=== PATIENT | female | born 1955 | race Caucasian/White ===

== ENCOUNTER 2021-06-25 14:41 | Inpatient (IN) | payer MEDICARE ==
[2021-06-25 14:48] LABS: Glucose,Whole Blood 222 mg/dL (75-99)
[2021-06-25] MEDS ORDERED: MIDAZOLAM 1 MG/ML 5 ML VIAL IV STA (14:48)
[2021-06-25] MEDS ORDERED: SODIUM CHLORIDE 0.9% 1,000 ML IV STA (14:51)
[2021-06-25] MEDS ORDERED: AMIODARONE 360 MG in DEXTROSE 5% IN WATER 200 ML IV ONE ×2 (15:00)
[2021-06-25] MEDS ORDERED: DEXTROSE 5% IN WATER 100 ML with AMIODARONE 150 MG IV ONE (15:00)
--- NOTE | 2021-06-25 15:06 | ED ---
General Adult HPI - General Chief complaint: Cardiac Arrest/CPR Stated complaint: Post Cardiac Arrest Time Seen by Provider: 06/25/21 14:41 Source: patient, EMS, RN notes reviewed, old records reviewed Mode of arrival: EMS Limitations: altered mental status, physical limitation - History of Present Illness Initial comments: This is a 66-year-old female EMS brought her in after she was in cardiac arrest. Patient only history that they had was that she was a diabetic. According to family patient went down to sitting in a chair he admittedly started CPR on her when EMS arrived they stated she was in V. fib and shocked her once she went into PEA another 15 minutes of CPR was done and results protocol was followed they put a Claus tube in and pulses were returned patient was down for approximately 25-30 minutes prior to pulses returning. No other history is available at this time family is not yet here. - Related Data Home Medications Medication Instructions Recorded Confirmed Collagenase [Santyl] 1 applic TOPICAL DAILY PRN 06/25/21 06/25/21 Diazepam [Valium] 5 mg PO HS PRN 06/25/21 06/25/21 metFORMIN HCL 1,000 mg PO BID 06/25/21 06/25/21 Allergies Allergy/AdvReac Type Severity Reaction Status Date / Time No Known Allergies Allergy Verified 06/25/21 15:32 Review of Systems ROS Statement: Those systems with pertinent positive or pertinent negative responses have been documented in the HPI. ROS Other: All systems not noted in ROS Statement are negative. Past Medical History History of Any Multi-Drug Resistant Organisms: MRSA Date of last positivie culture/infection: 04/20/20 MDRO Source:: MRSA FOOT General Exam - General Exam Comments Initial Comments: GENERAL: Patient is well-developed and well-nourished. Patient is unresponsive. Patient is taking some visual agonal breaths ENT: Neck is soft and supple. No significant lymphadenopathy is noted. Oropharynx is clear. Moist mucous membranes. EYES: Pupils are fixed and dilated PULMONARY: Occasional agonal breaths. Breath sounds could be heard when we were bagging her with the Claus tube in place. CARDIOVASCULAR: There is a regular rate and rhythm without any murmurs gallops or rubs. Patient has good femoral pulse in ABDOMEN: Soft and nontender with normal bowel sounds. SKIN: Skin is clear with no lesions or rashes and otherwise unremarkable. NEUROLOGIC: Patient is unresponsive. MUSCULOSKELETAL: Normal extremities with adequate strength and full range of motion. LYMPHATICS: No significant lymphadenopathy is noted PSYCHIATRIC: Unable to do at this time. Limitations: altered mental status, physical limitation Course Vital Signs 06/25/21 06/25/21 06/25/21 14:51 15:10 15:25 Temperature 97.5 F L Pulse Rate 96 97 85 Respiratory 15 17 16 Rate Blood Pressure 76/50 92/81 77/41 O2 Sat by Pulse 94 L 92 L 99 Oximetry 06/25/21 15:51 Temperature Pulse Rate 86 Respiratory 17 Rate Blood Pressure 98/53 O2 Sat by Pulse 98 Oximetry Procedures - Intubation Sedative: Versed Paralytic: Succinylcholine Laryngoscope: Yu Size: 3 ET Tube Size: 7.5 ET Tube Uncuffed: No Tube Secured Location: teeth Tube Placement Confirmation: visualized tube passing through cords, equal breath sounds bilaterally, no breath sounds over epigastrium, confirmation by capnometry Patient Tolerated Procedure: well Intubation Complications: none Medical Decision Making - Medical Decision Making Since we had return of spontaneous circulation I spoke with cardiology Dr. Cnonell approximately 10 minutes after the patient arrived. EKG showed normal sinus rhythm at 95 bpm MI interval 160 QRS is 94 QT interval 392 QTC is 492. It is a 4 quality EKG but I see no obvious signs of ST segment elevation at this time. Second EKG was done shows normal sinus rhythm at 85 bpm MI interval 174 QRS on 102 QT interval 420 QTC is 499. Patient's EKG shows no ST segment elevation or depression. Dr. Connlel came down and saw the patient and spoke with the family and they were in agreement with going to the catheterization lab. CT of the brain shows no acute abnormality. CT of the chest shows no PE but does show pulmonary edema versus pneumonia bilaterally much more significant on the right than the left. Patient went to the catheterization lab. I spoke with Dr. Acuna he agreed to admit the patient admitted the patient wrote orders. I started the patient on Rocephin in case this was a pneumonia as opposed to pulmonary edema. - Lab Data Result diagrams: 06/25/21 14:58 06/25/21 14:58 Lab Results 06/25/21 06/25/21 06/25/21 Range/Units 14:46 14:58 14:58 WBC 23.4 H (3.8-10.6) k/uL RBC 4.63 (3.80-5.40) m/uL Hgb 13.7 (11.4-16.0) gm/dL Hct 42.8 (34.0-46.0) % MCV 92.3 (80.0-100.0) fL MCH 29.5 (25.0-35.0) pg MCHC 32.0 (31.0-37.0) g/dL RDW 14.5 (11.5-15.5) % Plt Count 334 (150-450) k/uL MPV 8.5 Neutrophils % 80 % Lymphocytes % 15 % Monocytes % 2 % Eosinophils % 1 % Basophils % 0 % Neutrophils # 18.7 H (1.3-7.7) k/uL Lymphocytes # 3.6 (1.0-4.8) k/uL Monocytes # 0.6 (0-1.0) k/uL Eosinophils # 0.3 (0-0.7) k/uL Basophils # 0.1 (0-0.2) k/uL Hypochromasia Slight PT 10.4 (9.0-12.0) sec INR 1.0 (<1.2) APTT 22.5 (22.0-30.0) sec D-Dimer >34.10 H (<0.60) mg/L FEU Sodium (137-145) mmol/L Potassium (3.5-5.1) mmol/L Chloride (98-107) mmol/L Carbon Dioxide (22-30) mmol/L Anion Gap mmol/L BUN (7-17) mg/dL Creatinine (0.52-1.04) mg/dL Est GFR (CKD-EPI)AfAm (>60 ml/min/1.73 sqM) Est GFR (CKD-EPI)NonAf (>60 ml/min/1.73 sqM) Glucose (74-99) mg/dL POC Glucose (mg/dL) 222 H (75-99) mg/dL POC Glu Limo Driver ID Discher, Kristen Calcium (8.4-10.2) mg/dL Magnesium (1.6-2.3) mg/dL Total Bilirubin (0.2-1.3) mg/dL AST (14-36) U/L ALT (4-34) U/L Alkaline Phosphatase (38-126) U/L Troponin I (0.000-0.034) ng/mL NT-Pro-B Natriuret Pep pg/mL Total Protein (6.3-8.2) g/dL Albumin (3.5-5.0) g/dL 06/25/21 06/25/21 06/25/21 Range/Units 14:58 14:58 15:49 WBC (3.8-10.6) k/uL RBC (3.80-5.40) m/uL Hgb (11.4-16.0) gm/dL Hct (34.0-46.0) % MCV (80.0-100.0) fL MCH (25.0-35.0) pg MCHC (31.0-37.0) g/dL RDW (11.5-15.5) % Plt Count (150-450) k/uL MPV Neutrophils % % Lymphocytes % % Monocytes % % Eosinophils % % Basophils % % Neutrophils # (1.3-7.7) k/uL Lymphocytes # (1.0-4.8) k/uL Monocytes # (0-1.0) k/uL Eosinophils # (0-0.7) k/uL Basophils # (0-0.2) k/uL Hypochromasia PT (9.0-12.0) sec INR (<1.2) APTT (22.0-30.0) sec D-Dimer (<0.60) mg/L FEU Sodium 137 (137-145) mmol/L Potassium 4.4 (3.5-5.1) mmol/L Chloride 103 (98-107) mmol/L Carbon Dioxide 25 (22-30) mmol/L Anion Gap 9 mmol/L BUN 20 H (7-17) mg/dL Creatinine 0.99 (0.52-1.04) mg/dL Est GFR (CKD-EPI)AfAm 69 (>60 ml/min/1.73 sqM) Est GFR (CKD-EPI)NonAf 60 (>60 ml/min/1.73 sqM) Glucose 227 H (74-99) mg/dL POC Glucose (mg/dL) (75-99) mg/dL POC Glu Limo Driver ID Calcium 9.2 (8.4-10.2) mg/dL Magnesium 1.7 (1.6-2.3) mg/dL Total Bilirubin 0.2 (0.2-1.3) mg/dL AST 125 H (14-36) U/L ALT 53 H (4-34) U/L Alkaline Phosphatase 117 (38-126) U/L Troponin I 0.081 H* (0.000-0.034) ng/mL NT-Pro-B Natriuret Pep 339 pg/mL Total Protein 6.7 (6.3-8.2) g/dL Albumin 3.8 (3.5-5.0) g/dL Critical Care Time Critical Care Time: Yes Total Critical Care Time: 35 Disposition Clinical Impression: Cardiac arrest Disposition: ADMITTED IP TO THIS HOSP Referrals: None,Stated [Primary Care Provider] - 1-2 days Time of Disposition: 16:15
[2021-06-25 15:08] LABS: Basophils # (A) 0.1 k/uL (0-0.2); Basophils % (A) 0 %; Eosinophils # (A) 0.3 k/uL (0-0.7); Eosinophils % (A) 1 %; HCT 42.8 % (34.0-46.0); HGB 13.7 gm/dL (11.4-16.0); Hypochromasia Slight; Lymphocytes # (A) 3.6 k/uL (1.0-4.8); Lymphocytes % (A) 15 %; MCH 29.5 pg (25.0-35.0); MCV 92.3 fL (80.0-100.0); Mean Platelet Volume 8.5; Monocytes # (A) 0.6 k/uL (0-1.0); Monocytes % (A) 2 %; Neutrophils # (A) 18.7 k/uL (1.3-7.7); Neutrophils % (A) 80 %; Platelet Count 334 k/uL (150-450); RBC 4.63 m/uL (3.80-5.40); RDW 14.5 % (11.5-15.5); WBC 23.4 k/uL (3.8-10.6)
[2021-06-25] MEDS ORDERED: SUCCINYLCHOLINE CHLORIDE VIAL 200 MG/10 ML VIAL IV STA (15:13)
[2021-06-25 15:18] LABS: Albumin 3.8 g/dL (3.5-5.0); Calcium 9.2 mg/dL (8.4-10.2); Magnesium 1.7 mg/dL (1.6-2.3); Potassium 4.4 mmol/L (3.5-5.1); Total Bilirubin 0.2 mg/dL (0.2-1.3); Total Protein 6.7 g/dL (6.3-8.2)
--- NOTE | 2021-06-25 15:31 | XR ---
EXAMINATION TYPE: XR chest 1V portable DATE OF EXAM: 06/25/2021 COMPARISON: None INDICATION: Chest pain TECHNIQUE: Chest is examined utilizing mobile apparatus supine view. FINDINGS: The heart size is normal. The pulmonary vasculature is slightly prominent. There is diffuse increased lung markings in the right lung. Some mild increased lung markings may be at the left upper lung field.. No pneumothorax is evident. No displaced rib fractures are identified . Endotracheal tube tip is above susanne. Nasogastric tube transverses the thorax with tip in the left u pper quadrant of the abdomen. Radiopaque round densities in the left medial apex IMPRESSION: 1. Diffuse increased lung markings in the right lung. Correlate for atypical pulmonary edema and pneu monia. 2. Lines and catheters discussed above
[2021-06-25] MEDS ORDERED: ATORVASTATIN 80 MG TAB PO STA (15:37)
[2021-06-25] MEDS ORDERED: SODIUM CHLORIDE 0.9% 1,000 ML in EMPTY BAG 1 BAG IV ONE (15:37)
[2021-06-25] MEDS ORDERED: ASPIRIN 325 MG TAB PO STA (15:37)
[2021-06-25] MEDS ORDERED: NITROGLYCERIN SL TABS 0.4 MG TAB SUBLINGUAL PRN (15:37)
[2021-06-25] MEDS ORDERED: ALPRAZolam 0.5 MG TAB PO PRN (15:37)
[2021-06-25] MEDS ORDERED: ALPRAZolam 0.25 MG TAB PO PRN (15:37)
[2021-06-25 15:40] LABS: Partial Thromboplastin Time 22.5 sec (22.0-30.0); Prothrombin Time 10.4 sec (9.0-12.0)
[2021-06-25] MEDS ORDERED: HEPARIN SODIUM 1,000 UN/ML (10ML VL) ONE (15:53)
[2021-06-25] MEDS ORDERED: VERAPAMIL 2.5 MG/ML 2 ML AMP ONE (15:53)
[2021-06-25] MEDS ORDERED: LIDOCAINE 1% INJ 10MG/ML (20 ML MDV) ONE (15:53)
[2021-06-25] MEDS ORDERED: fentaNYL (PF) 50 MCG/ML 2 ML AMP ONE (15:54)
--- NOTE | 2021-06-25 15:56 | CT ---
EXAMINATION TYPE: CT brain wo con DATE OF EXAM: 06/25/2021 HISTORY: Patient unresponsive and intubated at time of scan. Confusion. CT DLP: 2073.6 mGycm. Automated Exposure Control for Dose Reduction was Utilized. TECHNIQUE: CT scan of the head is performed without contrast. COMPARISON: None. FINDINGS: There is no acute intracranial hemorrhage or midline shift identified. There is mild to m oderate diffuse ventricular and sulcal prominence consistent with diffuse age-related cerebral atroph y. There is mild low-attenuation in the periventricular white matter consistent with chronic small v essel ischemic change. Mild mucosal thickening posteriorly left maxillary sinus otherwise paranasal s inuses are clear. Left-sided nasogastric tube partially imaged. Endotracheal tube partially imaged. Globes are intact bilaterally. IMPRESSION: No acute intracranial hemorrhage or midline shift. There is mild to moderate diffuse ag e-related cerebral atrophy and mild chronic small vessel ischemic change noted.
--- NOTE | 2021-06-25 16:02 | CT ---
EXAMINATION TYPE: CT chest angio for PE DATE OF EXAM: 06/25/2021 COMPARISON: Chest x-ray earlier today HISTORY: Patient unresponsive and intubated at time of scan. CT DLP: 2073.6 mGycm. Automated Exposure Control for Dose Reduction was Utilized. CONTRAST: CTA scan of the thorax is performed with IV Contrast, patient injected with 100 mL of Isovue 370, pul monary embolism protocol. MIP Images are created on CT scanner and reviewed. FINDINGS: LUNGS: There is dense consolidation posterior aspect right lower lobe. Additional multifocal areas of groundglass opacity are present bilaterally. Less prominent dependent atelectasis or less likely acu te consolidation in the left lower lobe is noted. No significant pleural effusion or pneumothorax see n bilaterally. Endotracheal tube terminates above the susanne the aortic knob level. MEDIASTINUM: There is satisfactory enhancement of the pulmonary artery and its branches, there is no CT evidence for pulmonary embolism. Satisfactory enhancement of the thoracic aorta without aneurysm o r dissection. There are no greater than 1 cm hilar or mediastinal lymph nodes. Heart size upper limit s of normal. Lipomatous hypertrophy of the intra-arterial septum. Pericardial effusion is seen. Nasog astric tube projects below diaphragm into stomach. Coronary artery calcifications are present. OTHER: Mildly distended stomach partially imaged. IMPRESSION: 1. No CT evidence for acute pulmonary embolism. 2. Bilateral multifocal areas of groundglass opacity could reflect edema and/or infiltrates greatest in the upper versus lower lungs and greatest in the right lung. Correlate clinically to exclude covid -19 infection in current environment. More prominent dependent consolidation in the right lower lobe and posterior aspect right upper lobe could reflect additional multilobar pneumonia, aspiration pneum onia is in differential.
--- NOTE | 2021-06-25 16:26 | CONS ---
CONSULTATION Mrs. Arreguin is a 66-year-old female with a history of diabetes and chronic tobacco use who presented to the emergency room with a cardiac arrest. Apparently she was at home, according to her , sitting having lunch when she became unresponsive. He started CPR. Subsequently EMS arrived. She received cardioversion for ventricular fibrillation. On arrival in the emergency room she was intubated. She is intubated in sinus mechanism at this time. According to the family, the patient has no prior history of cardiac disease. She has dyspnea on exertion, but she is not active. She has a history of chronic tobacco use and diabetes. She has no prior history of angina pectoris or congestive heart failure. She has dyspnea on exertion. She has no history of documented arrhythmia. No other history is available. She has had diabetes for a long time. She is a smoker. No history of hypertension, according to the family. REVIEW OF SYSTEMS: Review of systems could not be obtained. PHYSICAL EXAMINATION: This is a 66-year-old female, intubated. The blood pressure is running in the 90s with a heart rate in the 90s. HEAD: Normocephalic. Eyes: Sclerae anicteric. Pupils with slow reaction to light NECK: No bruit. LUNGS: Decreased air exchange anteriorly. HEART: Regular rate and rhythm. S1, S2. No S3. No rub or gallop appreciated. ABDOMEN: Soft. Positive bowel sounds. No organomegaly. EXTREMITIES: No edema. Plus one distal pulses. LAB DATA: BUN and creatinine of 20 and 0.99, potassium 4.4, ALT of 53, AST of 125, blood sugar of 222. Hemoglobin 13.7, white blood cells 23.4. EKG revealed a sinus mechanism, right axis deviation, poor R-wave progression. No acute ST-segment changes. Chest x-ray shows increased marking in the right lung that could reflect either infiltrate or fluid overload. IMPRESSION: 1. Cardiac arrest with ventricular fibrillation per EMS. No acute ST-segment changes on the EKG. Rule out acute ischemic event in view of the history of diabetes and chronic tobacco use. 2. History of diabetes. 3. Chronic tobacco use. RECOMMENDATIONS: I have discussed her case with her family and have recommend proceeding with coronary angiography to assess her status and guide her treatment. The rationale behind the procedure as well as its risks and complications were discussed with the patient, who is in full understanding and agreement. Possibility of anoxic encephalopathy was discussed with them. They are in full understanding and agreement. Depending on the results of testing, further recommendations will be made. Thank you for this consult. Will follow with you. JAN / SHARIFN: [id number] / JER
[2021-06-25] MEDS ORDERED: MIDAZOLAM 2 MG/2 ML VIAL IV ONE (16:42)
[2021-06-25] MEDS ORDERED: SODIUM CHLORIDE 0.9% 1,000 ML IV ONE (16:42)
[2021-06-25] MEDS ORDERED: IV FLUID CONTINUATION 100 ML IV ONE (16:42)
[2021-06-25] MEDS ORDERED: LIDOCAINE 1% INJ 10MG/ML (20 ML MDV) SQ ONE (16:53)
[2021-06-25] MEDS ORDERED: VERAPAMIL SYRINGE (5 MG/10 ML) INTRAARTER ONE (16:55)
[2021-06-25] MEDS ORDERED: HEPARIN SODIUM 1,000 UN/ML (10ML VL) IV ONE (16:58)
[2021-06-25] MEDS ORDERED: IOPAMIDOL-370 125ML BTL INJ ONE (17:06)
[2021-06-25] MEDS ORDERED: SODIUM CHLORIDE 0.9% 500 ML 500 ML IV ONE (17:07)
[2021-06-25 17:10] LABS: ABG Base Excess -1.3 mmol/L; ABG HCO3 26 mmol/L (21-25); ABG Oxygen Saturation 99.3 % (94-97); ABG PCO2 63 mmHg (35-45); ABG PH 7.23 (7.35-7.45); ABG PO2 188 mmHg (83-108); ABG TCO2 28 mmol/L (19-24)
[2021-06-25] MEDS ORDERED: RX INFO: IV CONTRAST WAS GIVEN 1 EACH MISC MISCELLANE PRN (17:17)
[2021-06-25] MEDS ORDERED: HEPARIN SODIUM 1,000 UN/ML (10ML VL) IV PRN (17:19)
[2021-06-25] MEDS ORDERED: propofoL 100 ML IV ONE (17:42)
[2021-06-25 17:54] LABS: Glucose,Whole Blood 243 mg/dL (75-99)
[2021-06-25 18:14] LABS: Basophils # (A) 0.1 k/uL (0-0.2); Basophils % (A) 0 %; Eosinophils # (A) 0.1 k/uL (0-0.7); Eosinophils % (A) 0 %; HCT 41.7 % (34.0-46.0); HGB 12.9 gm/dL (11.4-16.0); Hypochromasia Slight; Lymphocytes # (A) 1.9 k/uL (1.0-4.8); Lymphocytes % (A) 8 %; MCH 28.9 pg (25.0-35.0); MCHC 30.9 g/dL (31.0-37.0); MCV 93.4 fL (80.0-100.0); Mean Platelet Volume 8.3; Monocytes # (A) 1.3 k/uL (0-1.0); Monocytes % (A) 6 %; Neutrophils # (A) 18.7 k/uL (1.3-7.7); Neutrophils % (A) 85 %; Platelet Count 304 k/uL (150-450); RBC 4.46 m/uL (3.80-5.40); RDW 14.8 % (11.5-15.5); WBC 22.2 k/uL (3.8-10.6)
[2021-06-25] MEDS: NOREPINEPHRINE 4 MG in SODIUM CHLORIDE 0.9% 250 ML IV SCH (18:20)
[2021-06-25 18:25] LABS: Partial Thromboplastin Time 35.8 sec (22.0-30.0); Prothrombin Time 11.1 sec (9.0-12.0)
[2021-06-25] MEDS ORDERED: NOREPINEPHRIN 4 MG-0.9% NS PMX 4 MG/250 ML ML IV ONE (18:32)
[2021-06-25] MEDS ORDERED: HEPARIN SOD,PORK IN 0.45% NACL 25,000 UNIT in 0.45% NACL 1 250ML.BAG IV SCH (19:30)
[2021-06-25] MEDS: SODIUM CHLORIDE 0.9% 1,000 ML IV SCH (19:34)
--- NOTE | 2021-06-25 19:46 | P.PCN ---
Date of Procedure: 06/25/21 Operative Findings: Date of Procedure: 06/25/21 Preoperative Diagnosis: Acute cardiac arrest Postoperative Diagnosis: Acute cardiac arrest Procedure(s) Performed: Insertion of a triple-lumen catheter and an arterial line Anesthesia: local Surgeon: Keegan Mills Estimated Blood Loss (ml): 0 Condition: critical Disposition: ICU Operative Findings: Arterial Line Indication: Hemodynamic monitoring. A time-out was completed verifying correct patient, procedure, site, positioning, and implant(s) or special equipment if applicable. Allens test was performed to ensure adequate perfusion. The patient s left wrist was prepped and draped in sterile fashion. 1% Lidocaine was used to anesthetize the area. An 18G Arrow arterial line was introduced into the left radial artery. The catheter was threaded over the guide wire and the needle was removed with appropriate pulsatile blood return. Blood loss was minimal. The catheter was then sutured in place to the skin and a sterile dressing applied. Perfusion to the extremity distal to the point of catheter insertion was checked and found to be adequate. The patient tolerated the procedure well and there were no complications. Central Line Indication: Hemodynamic monitoring/Intravenous access. A time-out was completed verifying correct patient, procedure, site, positioning, and implant(s) or special equipment if applicable. The patient was placed in a dependent position appropriate for central line placement based on the vein to be cannulated. The patient s left neck was prepped and draped in sterile fashion. 1% Lidocaine was used to anesthetize the surrounding skin area. A triple lumen 9F Cordis catheter was introduced into the Left IJ vein using Seldinger technique. The catheter was threaded smoothly over the guide wire and appropriate blood return was obtained. Each lumen of the catheter was evacuated of air and flushed with sterile saline. The catheter was then sutured in place to the skin and a sterile dressing applied. Perfusion to the extremity distal to the point of catheter insertion was checked and found to be adequate. The patient tolerated the procedure well and there were no complications.
--- NOTE | 2021-06-25 19:59 | CC ---
CARDIAC CATHETERIZATION REPORT DATE OF SERVICE: 06/25/2021 Mrs. Arreguin is a 66-year-old female with a history of diabetes and chronic tobacco use who presented with a sudden cardiac arrest and ventricular fibrillation requiring cardioversion. She was intubated. Her EKG shows no acute changes. I discussed her case with her family and recommendation was made regarding cardiac catheterization to rule out any evidence to suggest acute ischemic event to explain her presentation. The procedure as well as its risks and the complications were discussed with the family, and they were in full understanding and agreement. PROCEDURE DESCRIPTION: Patient was brought to the pathology laboratory director. She was intubated and sedated. Using Xylocaine anesthesia and Seldinger technique, a 6-Jordanian sheath was introduced in the right radial artery. Selective right and left coronary angiography was performed using 5- Jordanian 3.5 bend right and left Mavis catheters. Multiple views were taken of the arteries, including hemiaxial views. Following that, a 5-Jordanian tight pigtail catheter was introduced into the left ventricle and left ventricular end-diastolic pressure was calculated. Following that, catheter and sheath were removed. Hemostasis was obtained with deployment of a TR band. There was no immediate complication. The patient was returned to her room in stable condition. Of note, the patient received a total of 5000 units of intravenous heparin as well as intra-arterial verapamil. FINDINGS: LEFT MAIN: This is a large-sized vessel bifurcating into left circumflex and left anterior descending artery. Left main coronary artery has no evidence of high-grade stenosis. LEFT ANTERIOR DESCENDING ARTERY: This is a large-sized vessel reaching toward the apex, tortuous throughout its course, giving rise to a moderately sized diagonal branch. The second diagonal branch is small in caliber. After the takeoff of the second diagonal branch there is a plaque of 20% to 30% without any evidence of high-grade stenosis. LEFT CIRCUMFLEX: This is a nondominant vessel, large in caliber, giving rise to a large obtuse marginal branch. The left circumflex as well as its branches have no evidence of obstructive coronary artery disease. RIGHT CORONARY ARTERY: This is a large dominant vessel bifurcating distally into PDA and posterolateral segment and branches. The right coronary artery as well as its branches have no evidence of obstructive coronary artery disease. LEFT VENTRICULOGRAM: Left ventriculogram was not performed. HEMODYNAMICS: There was no gradient across the aortic valve. The left ventricular end- diastolic pressure was 10-14 mmHg. CONCLUSION: 1. Mild obstructive disease involving the mid LAD. 2. Right dominance. 3. Normal left ventricular end-diastolic pressure. RECOMMENDATIONS: In view of findings and anatomy, I see no evidence to suggest acute ischemic event to explain her presenting symptoms. I have recommended continued medical therapy. We will obtain echocardiogram with Doppler to evaluate the left ventricular systolic function. She will be evaluated by the pulmonary team regarding her respiratory status. Depending on her progress, further recommendations will be made. The prognosis remains guarded. I discussed those findings with the patient's over the phone. Duration of sedation was 15 minutes. MMODL / IJN: [id number] /
--- NOTE | 2021-06-25 20:00 | LTR ---
June 25, 2021 To: Dr. Guerrero Re: Svetlana Arreguin (55) Dear Dr. Guerrero, I had the pleasure of performing cardiac catheterization on Mrs. Arreguin at [facility] on June 25, and a full copy of the procedure note will be forwarded to you. In brief, she had a cardiopulmonary arrest and ventricular fibrillation requiring cardioversion. She underwent cardiac catheterization to rule out acute ischemic event, and there was no evidence of significant obstructive disease at this time. Will continue close clinical followup, and depending on her progress, further recommendations will be made. Thank you again for allowing me to participate in this patient's care. Please feel free to call with any questions. Sincerely, Mary Jo Connell M.D. JAN / MYLA: [phone] /
--- NOTE | 2021-06-25 20:30 | XR ---
EXAMINATION TYPE: XR chest 1V portable DATE OF EXAM: 06/25/2021 COMPARISON: Earlier same day. HISTORY: Line placement. TECHNIQUE: Single frontal view of the chest is obtained. FINDINGS: There is interval placement of left IJ catheter with tip overlying the mid SVC. The endotr acheal and nasogastric tubes remain in place. Stable BB pellet overlying the thoracic inlet. There is improved right lung aeration. There is persistent mild perihilar hazy opacity. No pneumothorax seen. Stable cardiomediastinal silhouette. Osseous structures are unchanged. IMPRESSION: Status post left central venous catheter. No pneumothorax. Improved right lung opacity. Persistent mild opacity.
[2021-06-25] MEDS ORDERED: METOPROLOL TARTRATE 25 MG TAB PO SCH (21:00)
[2021-06-25] MEDS: AMIODARONE 450 MG in DEXTROSE 5% IN WATER 250 ML IV SCH ×2 (21:47)
[2021-06-25] MEDS: ENOXAPARIN 40 MG/0.4 ML SYRINGE SQ SCH (21:47)
--- NOTE | 2021-06-25 22:30 | P.HPIM ---
History of Present Illness H&P Date: 06/25/21 Chief Complaint: Cardiac arrest Patient is a 66-year-old female with a known history of diabetes type 2 currently insulin-dependent, right diabetic heel ulcer with MRSA was brought to hospital by EMS after she had cardiac arrest. According to the family patient was sitting in the chair and suddenly went down and family started resuscitation with CPR. Apparently family did CPR for about 8 minutes prior to that. EMS was called and she was found to be in ventricular fibrillation. Patient was shocked once and then she went into PEA. She underwent CPR for about 15 minutes by EMS with return spontaneous circulation. Patient was brought to the ER where she was intubated. Initial vitals blood pressure was 96/50 pulse 96 and respiration 15 and pulse ox 94% on 9% nonrebreather. Chest x-ray showed diffuse increased lung markings in the right lung. Correlate for atypical pulmonary edema and pneumonia. CT head showed no acute intracranial hemorrhage or midline shift. There is mild to moderate diffuse age-related atrophy and mild chronic small vessel ischemic changes noted. CT angiogram showed no evidence of pulmonary embolism. Bilateral multifocal areas of groundglass opacity could reflect edema and/or infiltrates greatest in the upper versus lower lungs and greatest in the right lung. Correlate clinically to exclude COVID-19 infection. Laboratory data showed WBC 23.4 hemoglobin 13.7 and platelets of 234 D-dimer is greater than 34 BUN 20 creatinine 0.99 sodium 137 potassium 4.4 blood sugar is 222, AST 125 ALT 53 and alk phos 117, troponin 0 0.081 and proBNP 339 Patient was seen by cardiology and was taken to cardiac catheterization due to ventricular fibrillation as per EMS and to rule out cardiac etiology. Review of Systems Complete review of systems could not be obtained at this time Past Medical History History of Any Multi-Drug Resistant Organisms: MRSA Date of last positivie culture/infection: 04/20/20 MDRO Source:: MRSA FOOT Medications and Allergies Home Medications Medication Instructions Recorded Confirmed Type Collagenase [Santyl] 1 applic TOPICAL DAILY PRN 06/25/21 06/25/21 History Diazepam [Valium] 5 mg PO HS PRN 06/25/21 06/25/21 History Insulin Glargine [Lantus Vial] 38 unit SQ BID 06/25/21 06/25/21 History metFORMIN HCL 1,000 mg PO BID 06/25/21 06/25/21 History Allergies Allergy/AdvReac Type Severity Reaction Status Date / Time No Known Allergies Allergy Verified 06/25/21 15:32 Physical Exam Vitals: Vital Signs Temp Pulse Resp BP Pulse Ox 06/25/21 15:25 97.5 F L 85 16 77/41 99 06/25/21 15:10 97 17 92/81 92 L 06/25/21 14:51 96 15 76/50 94 L Intake and Output 06/25/21 06/25/21 06/25/21 06:59 14:59 22:59 Other: Weight 122.833 kg PHYSICAL EXAMINATION: Patient is . Currently intubated and on mechanical ventilation..obese.. HEENT: Normocephalic. Neck is supple. Pupils reactive. Nostrils clear. Oral cavity is moist. Neck reveals no JVD, carotid bruits, or thyromegaly. CHEST EXAMINATION: Trachea is central. Symmetrical expansion. Bibasilar diminished sounds on basilar crackles. CARDIAC: Normal S1, S2 with no gallops. No murmurs ABDOMEN: Soft. Bowel sounds normal. No organomegaly. No abdominal bruits. Extremities: reveal no edema. No clubbing or cyanosis Neurologically . Currently intubated and on mechanical ventilation... No gross focal deficits noted Skin: No rash or skin lesions. Right heel ulcer with clean base. No purulent drainage noted. Psychiatric: could not be assessed at this time. Musculoskeletal: No joint swelling or deformity. Normal range of motion. Results CBC & Chem 7: 06/25/21 17:59 06/25/21 14:58 Labs: Abnormal Lab Results - Last 24 Hours (Table) 06/25/21 06/25/21 06/25/21 Range/Units 14:46 14:58 14:58 WBC 23.4 H (3.8-10.6) k/uL Neutrophils # 18.7 H (1.3-7.7) k/uL D-Dimer >34.10 H (<0.60) mg/L FEU BUN (7-17) mg/dL Glucose (74-99) mg/dL POC Glucose (mg/dL) 222 H (75-99) mg/dL AST (14-36) U/L ALT (4-34) U/L Troponin I (0.000-0.034) ng/mL 06/25/21 06/25/21 Range/Units 14:58 14:58 WBC (3.8-10.6) k/uL Neutrophils # (1.3-7.7) k/uL D-Dimer (<0.60) mg/L FEU BUN 20 H (7-17) mg/dL Glucose 227 H (74-99) mg/dL POC Glucose (mg/dL) (75-99) mg/dL AST 125 H (14-36) U/L ALT 53 H (4-34) U/L Troponin I 0.081 H* (0.000-0.034) ng/mL Thrombosis Risk Factor Assmnt - DVT/VTE Prophylaxis DVT/VTE Prophylaxis: Pharmacologic Prophylaxis ordered Assessment and Plan Assessment: Acute cardiac arrest with ventricular fibrillation as per EMS.Downtime approximately 25 to 30 minutes. Acute hypoxic respiratory failure Possible right lower lobe aspiration pneumonia. Rule out COVID-19 infection Elevated D-dimer level with no evidence of PE as per CTA Diabetes type 2 insulin-dependent History of smoking Morbid obesity BMI 42.4 Right heel Diabetic foot ulcer with clean base. No purulent drainage noted. DVT prophylaxis Plan: Patient was intubated and on mechanical ventilator in the ER. Patient was given IV fluid bolus and will be continued on IV hydration and also started hemoglobin drip as per cardiology recommendations. Patient is being taken to cardiac catheterization emergently. Patient was given a dose of aspirin and statins. Continue with antibiotics to cover for possible aspiration Pneumonia. Continue with insulin sliding scale and will start on home regimen. Continue to follow closely. Prognosis is guarded at this time. Time with Patient: Greater than 30
[2021-06-25] MEDS: PIPERACILLIN-TAZOBACTAM 3.375 GM in SODIUM CHLORIDE 0.9% 100 ML IVPB SCH (22:45)
[2021-06-26] MEDS: PIPERACILLIN-TAZOBACTAM 3.375 GM in SODIUM CHLORIDE 0.9% 100 ML IVPB SCH ×3 (04:41→20:59)
[2021-06-26 05:21] LABS: ABG Base Excess 0.5 mmol/L; ABG HCO3 26 mmol/L (21-25); ABG Oxygen Saturation 97.8 % (94-97); ABG PCO2 49 mmHg (35-45); ABG PH 7.34 (7.35-7.45); ABG PO2 97 mmHg (83-108); ABG TCO2 28 mmol/L (19-24); Allen Test Performed? Yes
[2021-06-26 05:26] LABS: Glucose,Whole Blood 327 mg/dL (75-99)
[2021-06-26] MEDS: INSULIN ASPART (NovoLOG) 100 UNIT/ML VIAL SQ SCH ×4 (05:28→23:52)
[2021-06-26 06:22] LABS: Basophils % (A) 0 %; Eosinophils % (A) 0 %; HCT 36.5 % (34.0-46.0); HGB 11.8 gm/dL (11.4-16.0); Hypochromasia Slight; Lymphocytes % (A) 7 %; MCH 29.7 pg (25.0-35.0); MCHC 32.2 g/dL (31.0-37.0); Mean Platelet Volume 8.8; Monocytes # (A) 0.6 k/uL (0-1.0); Monocytes % (A) 4 %; Neutrophils # (A) 12.6 k/uL (1.3-7.7); Neutrophils % (A) 88 %; Platelet Count 240 k/uL (150-450); RBC 3.97 m/uL (3.80-5.40); RDW 14.9 % (11.5-15.5); WBC 14.2 k/uL (3.8-10.6)
[2021-06-26] MEDS: NOREPINEPHRINE 4 MG in SODIUM CHLORIDE 0.9% 250 ML IV SCH ×3 (06:36→23:57)
[2021-06-26 06:45] LABS: Calcium 7.9 mg/dL (8.4-10.2); Potassium 5.1 mmol/L (3.5-5.1)
[2021-06-26] MEDS ORDERED: HEPARIN SODIUM,PORCINE 10,000 UNIT in SODIUM CHLORIDE 0.9% 1,000 ML IRRIGATION PRN (07:00)
[2021-06-26] MEDS ORDERED: HEPARIN SODIUM,PORCINE 2,500 UNIT in SODIUM CHLORIDE 0.9% 250 ML IRRIGATION PRN (07:00)
[2021-06-26] MEDS ORDERED: INSULIN ASPART (NovoLOG) 100 UNIT/ML VIAL SQ SCH (07:30)
--- NOTE | 2021-06-26 07:48 | P.CNPUL ---
History of Present Illness Consult date: 06/25/21 Chief complaint: Cardiac arrest History of present illness: 66-year-old female patient brought into the emergency with cardiac arrest. The patient is a smoker the patient is also diabetic. According to the family, the patient an acute loss of consciousness and EMS was called to the scene. During that time, the patient was receiving CPR and when EMS arrived the patient was found to be in V. fib arrest. Shock was delivered and the patient went into PDA and another 15 minutes of CPR was done and a Claus tube was placed and subsequently pulses returned. Estimated downtime according to the emergency records was around 25-30 minutes prior to pulses returning.. The hospital, immediately the patient was taken for cardiac catheterization. He returned EKG showed normal sinus rhythm with incomplete right bundle branch block pattern. There was also left posterior fascicular block and prolongation of the QT. QT corrected was 492 ms. The patient underwent cardiac catheterization the patient was found to have nonocclusive disease. Level tremendously pressure was nonelevated. Noted the patient prior to cardiac catheterization underwent a CT angiogram that showed no the 70 dissection and there was no evidence of any pulmonary embolism or any filling defects. CTA showed bilateral multifocal areas of groundglass opacities involving in the upper and the lower lung breen greatest in the right lung. There was also extensive consolidation of the lung bases especially in the right lower lobe posterior segment raising the possibil ity of underlying aspiration. Chest x-ray showed asymmetric but the pulmonary infiltrates right more than left although the infiltrates were essentially diffuse. The patient had an ET tube in place. NG tube was also in place. Following the cardiac catheterization, the patient was brought into the intensive care unit and currently the patient is an assist-control mode of mechanical ventilation with assist control at a rate of 20, tidal volume of 400 and PEEP of 5 with an FiO2 of 100%.. The troponin was at 0.08. Blood sugar was 339. Normal renal function. Normal electrolytes. AST was 125, ALT was 63, white cell count was 23 with a hemoglobin of 13.7 and a platelet count of 334, the blood gases showed a pH of 7.43 with a pCO2 of 63 and pO2 of 188. For now, the patient is on no pressors. The patient on amiodarone drip at 1 mg per minute and the patient is also on IV heparin drip. Propofol for now is running at 35 mcg/kg per minute and the patient is also on normal saline at the rate of 75 mL an hour. Patient is on metoprolol 25 twice a day and aspirin 81 mg by mouth daily and Lipitor 40 mg by mouth daily. Review of Systems ROS unobtainable: due to endotracheal tube Past Medical History Past Medical History: Diabetes Mellitus History of Any Multi-Drug Resistant Organisms: MRSA Date of last positivie culture/infection: 04/20/20 MDRO Source:: MRSA FOOT Medications and Allergies Home Medications Medication Instructions Recorded Confirmed Type Collagenase [Santyl] 1 applic TOPICAL DAILY PRN 06/25/21 06/25/21 History Diazepam [Valium] 5 mg PO HS PRN 06/25/21 06/25/21 History Insulin Glargine [Lantus Vial] 38 unit SQ BID 06/25/21 06/25/21 History metFORMIN HCL 1,000 mg PO BID 06/25/21 06/25/21 History Allergies Allergy/AdvReac Type Severity Reaction Status Date / Time No Known Allergies Allergy Verified 06/25/21 15:32 Physical Exam Vitals: Vital Signs Temp Pulse Resp BP Pulse Ox 06/25/21 16:05 86 110/59 99 06/25/21 16:00 98 142/81 100 06/25/21 15:55 84 17 91/53 98 06/25/21 15:51 86 17 98/53 98 06/25/21 15:45 97/52 06/25/21 15:25 97.5 F L 83 16 77/41 98 06/25/21 15:10 87 17 92/87 97 06/25/21 15:00 107 H 94/74 95 06/25/21 14:51 96 15 76/50 94 L Intake and Output 06/25/21 06/25/21 06/25/21 06:59 14:59 22:59 Intake Total 150 Balance 150 Intake: IV 150 Other: Weight 122.833 kg Gen. reveals the patient is unresponsive, currently on propofol, intubated on a mechanical ventilator. Head exam was generally normal. There was no scleral icterus or corneal arcus. Mucous membranes were moist. Neck was supple and without jugular venous distension, thyromegaly, or carotid bruits. Carotids were easily palpable bilaterally. There was no adenopathy. Lungs sounds are diminished in the patient's crackles bilaterally more so on the right compared to the left. No significant wheezing. Cardiac exam revealed the PMI to be normally situated and sized. The rhythm was regular and no extrasystoles were noted during several minutes of auscultation. The first and second heart sounds were normal and physiologic splitting of the second heart sound was noted. There were no murmurs, rubs, clicks, or gallops. Abdominal exam revealed normal bowel sounds. The abdomen was soft, non-tender, and without masses, organomegaly, or appreciable enlargement of the abdominal aorta. Examination of the extremities revealed easily palpable radial, femoral and pedal pulses. There was no cyanosis, clubbing or edema. Examination of the skin revealed no evidence of significant rashes, suspicious appearing nevi or other concerning lesions. Neurologically, the patient is unresponsive. No facial asymmetry. Motor function cannot be assessed. Reflexes are symmetrical bilaterally and are quite diminished. No Babinski. No clonus. Results - Laboratory Findings CBC and BMP: 06/25/21 17:59 06/25/21 14:58 ABG ABG pH 7.23 (7.35-7.45) L 06/25/21 17:08 ABG pCO2 63 mmHg (35-45) H 06/25/21 17:08 ABG pO2 188 mmHg (83-108) H 06/25/21 17:08 ABG O2 Saturation 99.3 % (94-97) H 06/25/21 17:08 PT/INR, D-dimer PT 10.4 sec (9.0-12.0) 06/25/21 14:58 INR 1.0 (<1.2) 06/25/21 14:58 D-Dimer >34.10 mg/L FEU (<0.60) H 06/25/21 14:58 Abnormal lab findings: Abnormal Labs 06/25/21 06/25/21 06/25/21 14:46 14:58 14:58 WBC 23.4 H MCHC Neutrophils # 18.7 H Monocytes # D-Dimer >34.10 H ABG pH ABG pCO2 ABG pO2 ABG HCO3 ABG Total CO2 ABG O2 Saturation BUN Glucose POC Glucose (mg/dL) 222 H AST ALT Troponin I 06/25/21 06/25/21 06/25/21 14:58 14:58 17:08 WBC MCHC Neutrophils # Monocytes # D-Dimer ABG pH 7.23 L ABG pCO2 63 H ABG pO2 188 H ABG HCO3 26 H ABG Total CO2 28 H ABG O2 Saturation 99.3 H BUN 20 H Glucose 227 H POC Glucose (mg/dL) AST 125 H ALT 53 H Troponin I 0.081 H* 06/25/21 06/25/21 17:52 17:59 WBC 22.2 H MCHC 30.9 L Neutrophils # 18.7 H Monocytes # 1.3 H D-Dimer ABG pH ABG pCO2 ABG pO2 ABG HCO3 ABG Total CO2 ABG O2 Saturation BUN Glucose POC Glucose (mg/dL) 243 H AST ALT Troponin I - Diagnostic Findings Chest x-ray: image reviewed Assessment and Plan Plan: 1 acute cardiac arrest. The patient encounter the defibrillator arrest, witnessed, EMS was in the scene and the patient received defibrillation and resuscitation according to the ACLS protocol. The patient has a downtime of more than 20 minutes estimated to be around 20-25 minutes per records. Consider underlying development of anoxic encephalopathy. Awaiting echocardiogram. This is further down the investigation. Consider prolongation of QT as a cause for underlying V. fib arrest. Cardiac catheterization showed nonocclusive on a artery disease. 2 acute hypoxic respiratory failure secondary to above. The patient developed diffuse breath and pulmonary infiltrates right more than left and the patient tamez s significant consolidation lung bases right more than left. Consider aspiration. 3 unresponsiveness post cardiac arrest. Consider underlying hypoxic encephalopathy 4 acute leukocytosis secondary to above 5 minimal troponin leak secondary to above. The patient also received CPR 6 diabetes mellitus. 7 hyperlipidemia Plan Continue ventilator support Drop the FiO2 by 10% increments diminished insufficiency above 90% Obtain echocardiogram Continue amiodarone drip for the next 24 hours May discontinue the IV heparin drip if cardiology is agreeable and this will be replaced by subcu heparin for prophylaxis Start patient on IV Zosyn as an empiric antibiotic coverage for aspiration pneumonia start the patient on IV Zosyn as an empiric antibiotic coverage for aspiration pneumonia COVID 19 screening was negative by PCR Start the patient on a combination of aspirin, metoprolol and Lipitor Blood sugar monitoring and insulin sliding scale coverage Establish a triple-lumen catheter and arterial line Sedation holiday with the next 24 hours to assess his underlying mental status with a high concern of underlying anoxic encephalopathy The brain 60 shows no acute abnormalities and the patient has some mild to moderate diffuse age-related atrophy Continue IV fluids with normal saline at the rate of 75 mL an hour Condition is critical continue to follow make further recommendations based on progress.
[2021-06-26 09:00] LABS: Chol/HDL Ratio 3.77; LDL Cholesterol,Calculated 98.8 mg/dL (0.0-131.0); VLDL Calculation 20.2 mg/dL (5.00-40.00)
--- NOTE | 2021-06-26 09:19 | XR ---
EXAMINATION TYPE: XR chest 1V portable DATE OF EXAM: 06/26/2021 COMPARISON: [id number] HISTORY: SOB, Follow Up FINDINGS: Indwelling tubes and catheters are unchanged. Improved aeration at the upper lobes with mild persistent left lower lobe atelectasis. Stable appearance of the cardio-mediastinal structures at this time. Pleural effusion unchanged. IMPRESSION: 1. Improved aeration at the upper lobes with mild persistent left lower lobe atelectasis.Clinical co rrelation and follow up until resolution is recommended.
[2021-06-26] MEDS: SODIUM CHLORIDE 0.9% 1,000 ML IV SCH ×2 (09:29→21:04)
[2021-06-26] MEDS: CHLORHEXIDINE GLUCONATE 15 ML CUP MUCOUS MEM SCH ×2 (09:47→21:03)
[2021-06-26] MEDS: ASPIRIN 81 MG PO SCH (09:47)
[2021-06-26] MEDS: ATORVASTATIN 40 MG TAB PO SCH (09:47)
[2021-06-26] MEDS: ENOXAPARIN 40 MG/0.4 ML SYRINGE SQ SCH (09:47)
[2021-06-26] MEDS: INSULIN DETEMIR (LEVEMIR) 100 UNIT/ML SYR SQ SCH ×2 (09:47→21:03)
[2021-06-26] MEDS: METOPROLOL TARTRATE 12.5 MG TAB PO SCH ×2 (10:00→21:03)
[2021-06-26] MEDS: AMIODARONE 200 MG TAB PO SCH ×2 (10:00→21:03)
[2021-06-26 10:07] LABS: Glucose,Whole Blood 274 mg/dL (75-99)
--- NOTE | 2021-06-26 11:00 | ECHOF ---
Referral Reason:cardiac arrest MEASUREMENTS -------- HEIGHT: 170.2 cm WEIGHT: 124.3 kg BP: IVSd: 2.0 cm (0.6 - 1.1) LVIDd: 3.5 cm (3.9 - 5.3) LVPWd: 1.5 cm (0.6 - 1.1) IVSs: 2.5 cm LVIDs: 1.8 cm LVPWs: 1.6 cm LAESV Index (A-L): 22.29 ml/m Ao Diam: 3.6 cm (2.0 - 3.7) AV Cusp: 1.9 cm (1.5 - 2.6) LA Diam: 3.7 cm (2.7 - 3.8) MV EXCURSION: 17.441 mm (> 18.000) MV EF SLOPE: 64 mm/s (70 - 150) EPSS: 1.3 cm MV E Godwin: 1.05 m/s MV DecT: 390 ms MV A Godwin: 1.26 m/s MV E/A Ratio: 0.83 RAP: 20.00 mmHg RVSP: 54.34 mmHg FINDINGS -------- This was a technically adequate study. The left ventricular size is normal. There is severe concentric left ventricular hypertrophy. Ove rall left ventricular systolic function is normal with, an EF between 55 - 60 %. Normal LAP Grade 1 Diastolic Dysfunction The right ventricle is normal in size. The left atrial size is normal. Normal LA size by volume 22+/-6 ml/m2. The right atrial size is normal. Aortic valve is trileaflet and is mildly thickened. The mitral valve is normal. The mitral valve leaflets are mildly thickened. Mild mitral annular c alcification present. There is trace mitral regurgitation. The peak and mean MV gradients are 9. 85mmHg 3.57mmHg as measured by doppler. Moderate mitral stenosis. The tricuspid valve appears structurally normal. Mild tricuspid regurgitation present. There is m oderate pulmonary hypertension. The right ventricular systolic pressure, as measured by Doppler, is 54.34mmHg. There is no pulmonic regurgitation present. The aortic root size is normal. The inferior vena cava is dilated with no significant inspiratory collapse which is consistent estima flako right atrial pressure of >20 mmHg. There is a small, generalized pericardial effusion present. CONCLUSIONS -------- 1. The left ventricular size is normal. 2. There is severe concentric left ventricular hypertrophy. 3. Overall left ventricular systolic function is normal with, an EF between 55 - 60 %. 4. Normal LAP Grade 1 Diastolic Dysfunction 5. Aortic valve is trileaflet and is mildly thickened. 6. The mitral valve leaflets are mildly thickened. 7. Mild mitral annular calcification present. 8. There is trace mitral regurgitation. 9. The peak and mean MV gradients are 9.85mmHg 3.57mmHg as measured by doppler. 10. Moderate mitral stenosis. 11. Mild tricuspid regurgitation present. 12. There is moderate pulmonary hypertension. 13. The right ventricular systolic pressure, as measured by Doppler, is 54.34mmHg. 14. The inferior vena cava is dilated with no significant inspiratory collapse which is consistent es timated right atrial pressure of >20 mmHg. 15. There is a small, generalized pericardial effusion present. RATE REVIEWER: Alicia Lemus RDCS
[2021-06-26] MEDS: AMIODARONE 450 MG in DEXTROSE 5% IN WATER 250 ML IV SCH ×2 (11:14)
--- NOTE | 2021-06-26 11:52 | PN ---
PROGRESS NOTE Mrs. Arreguin is a 66-year-old female who presented with a cardiac arrest and ventricular fibrillation requiring cardioversion. She underwent CT angiogram of the chest to rule out pulmonary embolism that showed no evidence of pulmonary embolism with bilateral multifocal areas of ground-glass opacity. In view of her presentation, she subsequently underwent cardiac catheterization that showed no evidence of high- grade stenosis. She remains intubated and unresponsive. Hemodynamically she is stable. She had no ventricular ectopic activity. She is continued on IV amiodarone. She was evaluated by Dr. Mills. She continues to be at this time the amiodarone orally 400 mg twice a day. She is on Lipitor 40 mg daily, aspirin once a day, metoprolol tartrate 12.5 mg twice a day. PHYSICAL EXAMINATION: Blood pressure is running in the 120s to 130s with a heart rate in the 60s. LUNGS: No wheezes anteriorly. HEART: Regular rate and rhythm. S1, S2. No S3. No rub. ABDOMEN: Soft. Positive bowel sounds. EXTREMITIES: No edema. Right radial pulses intact. LAB DATA: BUN of 31 , potassium 5.1, hemoglobin of 11.8. Her peak troponin was 0.473. Her echocardiogram is pending. Her EKG revealed a QT interval of 499 milliseconds, corrected. She has no abnormal U wave. IMPRESSION: 1. Cardiac arrest, etiology unclear. There is no evidence of documented torsade de pointes to correlate with the QT interval. She has no evidence of acute ischemic event. 2. Respiratory failure. 3. Probable aspiration pneumonia. 4. History of diabetes. 5. History of chronic tobacco use. RECOMMENDATIONS: From the cardiac standpoint, we will await the results of the echocardiogram. I will continue on the amiodarone at this point. Her pulmonary status will be followed by Dr. Mills and will follow her neurological status. Depending on her progress, further recommendations will be made. MMODL / IJN: [id number] / JER
[2021-06-26 11:53] LABS: Glucose,Whole Blood 266 mg/dL (75-99)
--- NOTE | 2021-06-26 17:38 | P.PN ---
Subjective Progress Note Date: 06/26/21 66-year-old female patient post cardiac arrest is being seen for a follow-up. The patient is a smoker and diabetic and the patient had a V. fib cardiac arrest. 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 On today's evaluation, the patient is sedated with propofol. Propofol is being gradually weaned off and currently she is down to 25 microvascular kilogram per minute. The patient is on assist control mode at the rate of 20 with a tidal volume of 400 and FiO2 of 50% with a PEEP of 5. Blood gases showed a pH of 7.434 with a pCO2 of 49 and pO2 of 97. Chest x-ray consistent with bilateral pneumonia although the aeration on today's chest x-ray is improved as the patient is being covered with IV Zosyn as an empiric antibiotic coverage for now underlying aspiration. The patient will be given a sedation holiday to assess an underlying mental status. She has a mandibular amiodarone 0.5 mg/m since yesterday and no cardiac arrhythmias of been noted. The patient is also on normal saline at the rate of 75 is an hour. She has not required any pressors. She has a left IJ triple-lumen catheter and she has a left radial arterial line catheter. Overall LV function was preserved with an EF of around 55-60%. There is moderate mitral stenosis. Moderate pulmonary hypertension. RV systolic pressure was estimated to be around 54 mmHg. The patient's troponin: 19 testing came back negative. The white cell count dropped from 22 down to 14. Resident blood work and electrodes are all within normal limits. No other significant events otherwise for now. The plan is to give the patient is sedation holiday today to assess an underlying mental status. The patient was also noted to have an elevated blood sugar. She was started on enteral feeding for nutritional support. She'll be also started on Levemir insulin. Objective - Vital Signs Vital signs: Vital Signs Temp 98.7 F 06/26/21 12:00 Pulse 64 06/26/21 14:45 Resp 26 H 06/26/21 14:45 BP 134/82 06/25/21 19:45 Pulse Ox 100 06/26/21 14:45 Intake & Output 06/25/21 06/26/21 06/26/21 18:59 06:59 18:59 Intake Total 300 1408.810 825.000 Output Total 225 745 585 Balance 75 663.810 240.000 Weight 122.833 kg 124.3 kg 124.3 kg Intake: IV 300 1100 725 Piperacillin-Tazobactam 3 150 125 .375 gm In Sodium Chloride 0.9% 100 ml @ 25 mls/hr IVPB Q8H [facility] Rx#: [id number] Sodium Chloride 0.9% 1, 150 900 600 000 ml @ 75 mls/hr IV . [id number] [facility] Rx#:[id number] cefTRIAXone 2 gm In 50 Sodium Chloride 0.9% 50 ml @ 100 mls/hr IVPB ONCE [facility] Rx#:[id number] Intake, IV Titration 308.810 100.000 Amount Norepinephrine 4 mg In 108.81 Sodium Chloride 0.9% 250 ml @ 0.05 MCG/KG/MIN 23.4 mls/hr IV .[id number] [facility] Rx#:[id number] propofoL 1,000 mg In 200.000 100.000 Empty Bag 1 bag @ Titrate IV .Q0M [facility] Rx#: [id number] Output: Urine 225 745 585 Other: Voiding Method Indwelling Catheter Indwelling Catheter ABP, PAP, CO, CI - Last Documented Arterial Blood Pressure 126/53 - Exam Gen. reveals the patient is unresponsive, currently on propofol, intubated on a mechanical ventilator. Head exam was generally normal. There was no scleral icterus or corneal arcus. Mucous membranes were moist. Neck was supple and without jugular venous distension, thyromegaly, or carotid bruits. Carotids were easily palpable bilaterally. There was no adenopathy. Lungs sounds are diminished in the patient's crackles bilaterally more so on the right compared to the left. No significant wheezing. Cardiac exam revealed the PMI to be normally situated and sized. The rhythm was regular and no extrasystoles were noted during several minutes of auscultation. The first and second heart sounds were normal and physiologic splitting of the second heart sound was noted. There were no murmurs, rubs, clicks, or gallops. Abdominal exam revealed normal bowel sounds. The abdomen was soft, non-tender, and without masses, organomegaly, or appreciable enlargement of the abdominal aorta. Examination of the extremities revealed easily palpable radial, femoral and pedal pulses. There was no cyanosis, clubbing or edema. Examination of the skin revealed no evidence of significant rashes, suspicious appearing nevi or other concerning lesions. Neurologically, the patient is unresponsive. No facial asymmetry. Motor function cannot be assessed. Reflexes are symmetrical bilaterally and are quite diminished. No Babinski. No clonus. - Labs CBC & Chem 7: 06/26/21 06:15 06/26/21 06:00 Labs: Abnormal Lab Results - Last 24 Hours (Table) 06/25/21 06/25/21 06/25/21 Range/Units 17:52 17:59 17:59 WBC 22.2 H (3.8-10.6) k/uL MCHC 30.9 L (31.0-37.0) g/dL Neutrophils # 18.7 H (1.3-7.7) k/uL Monocytes # 1.3 H (0-1.0) k/uL APTT 35.8 H (22.0-30.0) sec ABG pH (7.35-7.45) ABG pCO2 (35-45) mmHg ABG HCO3 (21-25) mmol/L ABG Total CO2 (19-24) mmol/L ABG O2 Saturation (94-97) % Sodium (137-145) mmol/L BUN (7-17) mg/dL Glucose (74-99) mg/dL POC Glucose (mg/dL) 243 H (75-99) mg/dL Calcium (8.4-10.2) mg/dL Troponin I (0.000-0.034) ng/mL 06/25/21 06/26/21 06/26/21 Range/Units 17:59 05:17 05:20 WBC (3.8-10.6) k/uL MCHC (31.0-37.0) g/dL Neutrophils # (1.3-7.7) k/uL Monocytes # (0-1.0) k/uL APTT (22.0-30.0) sec ABG pH 7.34 L (7.35-7.45) ABG pCO2 49 H (35-45) mmHg ABG HCO3 26 H (21-25) mmol/L ABG Total CO2 28 H (19-24) mmol/L ABG O2 Saturation 97.8 H (94-97) % Sodium (137-145) mmol/L BUN (7-17) mg/dL Glucose (74-99) mg/dL POC Glucose (mg/dL) (75-99) mg/dL Calcium (8.4-10.2) mg/dL Troponin I 0.473 H* 0.435 H* (0.000-0.034) ng/mL 06/26/21 06/26/21 06/26/21 Range/Units 05:24 06:00 06:15 WBC 14.2 H (3.8-10.6) k/uL MCHC (31.0-37.0) g/dL Neutrophils # 12.6 H (1.3-7.7) k/uL Monocytes # (0-1.0) k/uL APTT (22.0-30.0) sec ABG pH (7.35-7.45) ABG pCO2 (35-45) mmHg ABG HCO3 (21-25) mmol/L ABG Total CO2 (19-24) mmol/L ABG O2 Saturation (94-97) % Sodium 136 L (137-145) mmol/L BUN 31 H (7-17) mg/dL Glucose 314 H (74-99) mg/dL POC Glucose (mg/dL) 327 H (75-99) mg/dL Calcium 7.9 L (8.4-10.2) mg/dL Troponin I (0.000-0.034) ng/mL 06/26/21 06/26/21 Range/Units 10:05 11:52 WBC (3.8-10.6) k/uL MCHC (31.0-37.0) g/dL Neutrophils # (1.3-7.7) k/uL Monocytes # (0-1.0) k/uL APTT (22.0-30.0) sec ABG pH (7.35-7.45) ABG pCO2 (35-45) mmHg ABG HCO3 (21-25) mmol/L ABG Total CO2 (19-24) mmol/L ABG O2 Saturation (94-97) % Sodium (137-145) mmol/L BUN (7-17) mg/dL Glucose (74-99) mg/dL POC Glucose (mg/dL) 274 H 266 H (75-99) mg/dL Calcium (8.4-10.2) mg/dL Troponin I (0.000-0.034) ng/mL Microbiology - Last 24 Hours (Table) 06/25/21 15:23 Gram Stain - Preliminary Sputum Sputum Culture - Preliminary Assessment and Plan Plan: 1 acute cardiac arrest. The patient encounter the defibrillator arrest, witnessed, EMS was in the scene and the patient received defibrillation and resuscitation according to the ACLS protocol. The patient has a downtime of more than 20 minutes estimated to be around 20-25 minutes per records. Consider underlying development of anoxic encephalopathy. Echo of the heart showed a preserved LV function with concentric LVH and moderate mitral stenosis and moderate to severe pulmonary hypertension. Consider prolongation of QT as a cause for underlying V. fib arrest. Cardiac catheterization showed nonocclusive on a artery disease. 2 acute hypoxic respiratory failure secondary to above. The patient developed diffuse breath and pulmonary infiltrates right more than left and the patient has significant consolidation lung bases right more than left. Consider aspiration. The patient remains on IV Zosyn. There is interval improvement in the bilateral pulmonary infiltrates as noted. 3 unresponsiveness post cardiac arrest. Consider underlying hypoxic encephalopathy, sedation holiday will be given and the patient's underlying mental status will be assessed 4 acute leukocytosis secondary to above, improving 5 minimal troponin leak secondary to above. The patient also received CPR 6 diabetes mellitus. 7 hyperlipidemia Plan Continue ventilator support Drop the FiO2 has been drop down to 40% with a PEEP of 5 Obtain echocardiogram showed a preserved LV function with moderate mitral stenosis and moderate severe pulmonary hypertension Discontinue the amiodarone drip and put the patient on oral amiodarone 400 mg by mouth twice a day Celexa this patient to oral amiodarone Start the patient on metoprolol 12.5 mg twice a day Continued IV Zosyn regarding aspiration pneumonia Covid 19 screening has been negative by PCR Continue high-dose statins Start the patient on Lantus 10 units twice a day along with a sliding scale coverage Dictated patient off the propofol and assess the patient's underlying mental status. There is a possibility of an underlying anoxic/hypoxic encephalopathy. The brain showed no acute abnormalities and the patient has some mild to moderate diffuse age-related atrophy Continue IV fluids with normal saline at the rate of 75 mL an hour Condition is critical continue to follow make further recommendations based on progress. There is a care evaluation that was done and more than 30 minutes. Prognosis obviously critical and possibly poor specially if the patient shows signs of anoxic encephalopathy post prolonged cardiac arrest. Awaiting a neurology evaluation. Time with Patient: Greater than 30
[2021-06-26 18:07] LABS: Glucose,Whole Blood 166 mg/dL (75-99)
--- NOTE | 2021-06-26 22:52 | P.PN ---
Subjective Progress Note Date: 06/26/21 Principal diagnosis: Acute cardiac arrest with ventricular fibrillation as per EMS Patient is a 66-year-old female with a known history of diabetes type 2 currently insulin-dependent, right diabetic heel ulcer with MRSA was brought to hospital by EMS after she had cardiac arrest. According to the family patient was sitting in the chair and suddenly went down and family started resuscitation with CPR. Apparently family did CPR for about 8 minutes prior to that. EMS was called and she was found to be in ventricular fibrillation. Patient was shocked once and then she went into PEA. She underwent CPR for about 15 minutes by EMS with return spontaneous circulation. Patient was brought to the ER where she was intubated. Initial vitals blood pressure was 96/50 pulse 96 and respiration 15 and pulse ox 94% on 9% nonrebreather. Chest x-ray showed diffuse increased lung markings in the right lung. Correlate for atypical pulmonary edema and pneumonia. CT head showed no acute intracranial hemorrhage or midline shift. There is mild to moderate diffuse age-related atrophy and mild chronic small vessel ischemic changes noted. CT angiogram showed no evidence of pulmonary embolism. Bilateral multifocal areas of groundglass opacity could reflect edema and/or infiltrates greatest in the upper versus lower lungs and greatest in the right lung. Correlate clinically to exclude COVID-19 infection. Laboratory data showed WBC 23.4 hemoglobin 13.7 and platelets of 234 D-dimer is greater than 34 BUN 20 creatinine 0.99 sodium 137 potassium 4.4 blood sugar is 222, AST 125 ALT 53 and alk phos 117, troponin 0 0.081 and proBNP 339 Patient was seen by cardiology and was taken to cardiac catheterization due to ventricular fibrillation as per EMS and to rule out cardiac etiology. 06/26/2021 Patient was admitted to the hospital status post cardiac arrest and was found to have V. tach. Patient remained intubated and sedated. Patient is being continued amiodarone drip which is being changed to by mouth. Started on oral tube feedings. Patient is status post cardiac catheterization showed mild obstructive disease involving the mid LAD. Right dominance. Normal left ventricular end-diastolic pressure. 2D echocardiogram showed ejection fraction 55 to 60%. Moderate mitral stenosis, moderate pulmonary hypertension with RVSP 54.3, IVC is dilated with no significant inspiratory collapse which is consistent with estimated right atrial pressure of greater than 20 mmHg. Chest x-ray today showed improved aeration of the upper lobes with mild persistent left lower lobe atelectasis. Correlate and follow-up. Laboratory showed WBC trending down to 14.2 hemoglobin 11.8 and platelets 240, BUN 31 creatinine 1.01 and blood sugar is 314 Patient is being continued antibiotics in the form of Zosyn. Continue with insulin sliding scale and Levemir was added. Patient is Levemir 38 units twice daily at home. Pulmonary and cardiology is on board. Active Medications Generic Name Dose Route Start Last Admin Trade Name Freq PRN Reason Stop Dose Admin Alprazolam 0.25 mg 06/25/21 15:37 Alprazolam 0.25 Mg Tab PO Q6HR PRN Mild Anxiety Alprazolam 0.5 mg 06/25/21 15:37 Alprazolam 0.5 Mg Tab PO Q6HR PRN Moderate Anxiety Amiodarone HCl 400 mg 06/26/21 09:15 06/26/21 21:03 Amiodarone 200 Mg Tab PO 400 mg BID CHELI Administration Aspirin 81 mg 06/26/21 09:00 06/26/21 09:47 Aspirin 81 Mg PO 81 mg DAILY [facility] Administration Atorvastatin Calcium 40 mg 06/26/21 09:00 06/26/21 09:47 Atorvastatin 40 Mg Tab PO 40 mg DAILY [facility] Administration Chlorhexidine Gluconate 15 ml 06/26/21 09:00 06/26/21 21:03 Chlorhexidine Gluconate 15 Ml Cup MUCOUS MEM 15 ml BID CHELI Administration Enoxaparin Sodium 40 mg 06/25/21 19:30 06/26/21 09:47 Enoxaparin 40 Mg/0.4 Ml Syringe SQ 40 mg DAILY [facility] Administration Heparin Sodium (Porcine) 10, 1,001 mls @ 999 mls/hr 06/26/21 07:00 000 unit/ Sodium Chloride IRRIGATION 06/26/21 23:00 ONCE PRN INTRA-OP Heparin Sodium (Porcine) 2,500 250.5 mls @ 250 mls/hr 06/26/21 07:00 unit/ Sodium Chloride IRRIGATION 06/26/21 23:00 ONCE PRN INTRA-OP Sodium Chloride 1,000 mls @ 75 mls/hr 06/25/21 17:30 06/26/21 21:04 Saline 0.9% IV 75 mls/hr .[id number] [facility] Administration Norepinephrine Bitartrate 4 mg 254 mls @ 23.4 mls/hr 06/25/21 18:45 06/26/21 18:13 / Sodium Chloride IV Not Given .[id number] [facility] Protocol 0.05 MCG/KG/MIN Piperacillin Sod/Tazobactam 100 mls @ 25 mls/hr 06/25/21 20:00 06/26/21 20:59 Sod 3.375 gm/ Sodium Chloride IVPB 25 mls/hr Q8H [facility] Administration Propofol 1,000 mg/ IV Solution 100 mls @ 0 mls/hr 06/25/21 21:45 06/26/21 19:49 IV 25 mcg/kg/min .Q0M [facility] 18.645 mls/hr Administration Protocol Titrate Insulin Aspart 0 unit 06/26/21 06:00 06/26/21 18:19 Insulin Aspart (Novolog) 100 Unit/Ml Vial SQ 2 unit Q6HR [facility] Administration Protocol Insulin Detemir 10 unit 06/26/21 09:15 06/26/21 21:03 Insulin Detemir (Levemir) 100 Unit/Ml Syr SQ 10 unit BID@0700,2100 [facility] Administration Metoprolol Tartrate 12.5 mg 06/26/21 09:15 06/26/21 21:03 Metoprolol Tartrate 12.5 Mg Tab PO 12.5 mg BID [facility] Administration Miscellaneous Information 1 each 06/25/21 17:17 Rx Info: Iv Contrast Was Given 1 Each Misc MISCELLANE 06/27/21 17:17 DAILY PRN Per Protocol Nitroglycerin 0.4 mg 06/25/21 15:37 Nitroglycerin Sl Tabs 0.4 Mg Tab SUBLINGUAL Q5M PRN Chest Pain Objective - Vital Signs Vital signs: Vital Signs Temp 98.7 F 06/26/21 12:00 Pulse 64 06/26/21 14:45 Resp 26 H 06/26/21 14:45 BP 134/82 06/25/21 19:45 Pulse Ox 100 06/26/21 14:45 Intake & Output 06/25/21 06/26/21 06/26/21 18:59 06:59 18:59 Intake Total 300 1408.810 825.000 Output Total 225 745 585 Balance 75 663.810 240.000 Weight 122.833 kg 124.3 kg 124.3 kg Intake: IV 300 1100 725 Piperacillin-Tazobactam 3 150 125 .375 gm In Sodium Chloride 0.9% 100 ml @ 25 mls/hr IVPB Q8H [facility] Rx#: [id number] Sodium Chloride 0.9% 1, 150 900 600 000 ml @ 75 mls/hr IV . [id number] [facility] Rx#:[id number] cefTRIAXone 2 gm In 50 Sodium Chloride 0.9% 50 ml @ 100 mls/hr IVPB ONCE [facility] Rx#:[id number] Intake, IV Titration 308.810 100.000 Amount Norepinephrine 4 mg In 108.81 Sodium Chloride 0.9% 250 ml @ 0.05 MCG/KG/MIN 23.4 mls/hr IV .[id number] [facility] Rx#:[id number] propofoL 1,000 mg In 200.000 100.000 Empty Bag 1 bag @ Titrate IV .Q0M [facility] Rx#: [id number] Output: Urine 225 745 585 Other: Voiding Method Indwelling Catheter Indwelling Catheter ABP, PAP, CO, CI - Last Documented Arterial Blood Pressure 126/53 - Exam PHYSICAL EXAMINATION: Patient is . Currently intubated and on mechanical ventilation..obese.. HEENT: Normocephalic. Neck is supple. Pupils reactive. Nostrils clear. Oral cavity is moist. Neck reveals no JVD, carotid bruits, or thyromegaly. CHEST EXAMINATION: Trachea is central. Symmetrical expansion. Bibasilar diminished sounds on basilar crackles. CARDIAC: Normal S1, S2 with no gallops. No murmurs ABDOMEN: Soft. Bowel sounds normal. No organomegaly. No abdominal bruits. Extremities: reveal no edema. No clubbing or cyanosis Neurologically . Currently intubated and on mechanical ventilation... No gross focal deficits noted Skin: No rash or skin lesions. Right heel ulcer with clean base. No purulent drainage noted. Psychiatric: could not be assessed at this time. Musculoskeletal: No joint swelling or deformity. Normal range of motion. - Labs CBC & Chem 7: 06/26/21 06:15 06/26/21 06:00 Labs: Abnormal Lab Results - Last 24 Hours (Table) 06/25/21 06/25/21 06/25/21 Range/Units 14:58 17:08 17:52 WBC (3.8-10.6) k/uL MCHC (31.0-37.0) g/dL Neutrophils # (1.3-7.7) k/uL Monocytes # (0-1.0) k/uL APTT (22.0-30.0) sec D-Dimer >34.10 H (<0.60) mg/L FEU ABG pH 7.23 L (7.35-7.45) ABG pCO2 63 H (35-45) mmHg ABG pO2 188 H (83-108) mmHg ABG HCO3 26 H (21-25) mmol/L ABG Total CO2 28 H (19-24) mmol/L ABG O2 Saturation 99.3 H (94-97) % Sodium (137-145) mmol/L BUN (7-17) mg/dL Glucose (74-99) mg/dL POC Glucose (mg/dL) 243 H (75-99) mg/dL Calcium (8.4-10.2) mg/dL Troponin I (0.000-0.034) ng/mL 06/25/21 06/25/21 06/25/21 Range/Units 17:59 17:59 17:59 WBC 22.2 H (3.8-10.6) k/uL MCHC 30.9 L (31.0-37.0) g/dL Neutrophils # 18.7 H (1.3-7.7) k/uL Monocytes # 1.3 H (0-1.0) k/uL APTT 35.8 H (22.0-30.0) sec D-Dimer (<0.60) mg/L FEU ABG pH (7.35-7.45) ABG pCO2 (35-45) mmHg ABG pO2 (83-108) mmHg ABG HCO3 (21-25) mmol/L ABG Total CO2 (19-24) mmol/L ABG O2 Saturation (94-97) % Sodium (137-145) mmol/L BUN (7-17) mg/dL Glucose (74-99) mg/dL POC Glucose (mg/dL) (75-99) mg/dL Calcium (8.4-10.2) mg/dL Troponin I 0.473 H* (0.000-0.034) ng/mL 06/26/21 06/26/21 06/26/21 Range/Units 05:17 05:20 05:24 WBC (3.8-10.6) k/uL MCHC (31.0-37.0) g/dL Neutrophils # (1.3-7.7) k/uL Monocytes # (0-1.0) k/uL APTT (22.0-30.0) sec D-Dimer (<0.60) mg/L FEU ABG pH 7.34 L (7.35-7.45) ABG pCO2 49 H (35-45) mmHg ABG pO2 (83-108) mmHg ABG HCO3 26 H (21-25) mmol/L ABG Total CO2 28 H (19-24) mmol/L ABG O2 Saturation 97.8 H (94-97) % Sodium (137-145) mmol/L BUN (7-17) mg/dL Glucose (74-99) mg/dL POC Glucose (mg/dL) 327 H (75-99) mg/dL Calcium (8.4-10.2) mg/dL Troponin I 0.435 H* (0.000-0.034) ng/mL 06/26/21 06/26/21 06/26/21 Range/Units 06:00 06:15 10:05 WBC 14.2 H (3.8-10.6) k/uL MCHC (31.0-37.0) g/dL Neutrophils # 12.6 H (1.3-7.7) k/uL Monocytes # (0-1.0) k/uL APTT (22.0-30.0) sec D-Dimer (<0.60) mg/L FEU ABG pH (7.35-7.45) ABG pCO2 (35-45) mmHg ABG pO2 (83-108) mmHg ABG HCO3 (21-25) mmol/L ABG Total CO2 (19-24) mmol/L ABG O2 Saturation (94-97) % Sodium 136 L (137-145) mmol/L BUN 31 H (7-17) mg/dL Glucose 314 H (74-99) mg/dL POC Glucose (mg/dL) 274 H (75-99) mg/dL Calcium 7.9 L (8.4-10.2) mg/dL Troponin I (0.000-0.034) ng/mL 06/26/21 Range/Units 11:52 WBC (3.8-10.6) k/uL MCHC (31.0-37.0) g/dL Neutrophils # (1.3-7.7) k/uL Monocytes # (0-1.0) k/uL APTT (22.0-30.0) sec D-Dimer (<0.60) mg/L FEU ABG pH (7.35-7.45) ABG pCO2 (35-45) mmHg ABG pO2 (83-108) mmHg ABG HCO3 (21-25) mmol/L ABG Total CO2 (19-24) mmol/L ABG O2 Saturation (94-97) % Sodium (137-145) mmol/L BUN (7-17) mg/dL Glucose (74-99) mg/dL POC Glucose (mg/dL) 266 H (75-99) mg/dL Calcium (8.4-10.2) mg/dL Troponin I (0.000-0.034) ng/mL Microbiology - Last 24 Hours (Table) 06/25/21 15:23 Gram Stain - Preliminary Sputum Sputum Culture - Preliminary Assessment and Plan Assessment: Acute cardiac arrest with ventricular fibrillation as per EMS.Downtime approximately 25 to 30 minutes. Acute hypoxic respiratory failure Secondary to above. Possible right lower lobe aspiration pneumonia. Rule out COVID-19 infection Elevated D-dimer level with no evidence of PE as per CTA Diabetes type 2 insulin-dependent History of smoking Morbid obesity BMI 42.4 Right heel Diabetic foot ulcer with clean base. No purulent drainage noted. DVT prophylaxis Plan: Patient was intubated and on mechanical ventilator in the ER.Patient remained mechanical ventilator. Sedation holiday. Status post cardiac catheterization showed mild CAD. Amiodarone changed to by mouth. Patient is on tube feedings. Continued on aspirin, statins and beta-blockers were added. Continue with insulin sliding scale and insulin regimen. Antibiotics in the form of Zosyn. Follow-up culture reports. Continue to follow closely. Time with Patient: Greater than 30
[2021-06-26 23:41] LABS: Glucose,Whole Blood 112 mg/dL (75-99)
[2021-06-27] MEDS: PIPERACILLIN-TAZOBACTAM 3.375 GM in SODIUM CHLORIDE 0.9% 100 ML IVPB SCH ×3 (04:08→20:41)
[2021-06-27 04:11] LABS: ABG Base Excess 3.3 mmol/L; ABG HCO3 28 mmol/L (21-25); ABG Oxygen Saturation 96.1 % (94-97); ABG PCO2 47 mmHg (35-45); ABG PH 7.39 (7.35-7.45); ABG PO2 77 mmHg (83-108); ABG TCO2 30 mmol/L (19-24); Allen Test Performed? Yes
[2021-06-27 04:23] LABS: Basophils % (A) 0 %; Eosinophils # (A) 0.1 k/uL (0-0.7); Eosinophils % (A) 1 %; HGB 10.4 gm/dL (11.4-16.0); Lymphocytes # (A) 1.6 k/uL (1.0-4.8); Lymphocytes % (A) 12 %; MCH 29.3 pg (25.0-35.0); MCHC 32.5 g/dL (31.0-37.0); MCV 90.2 fL (80.0-100.0); Monocytes # (A) 0.7 k/uL (0-1.0); Monocytes % (A) 5 %; Neutrophils # (A) 11.1 k/uL (1.3-7.7); Neutrophils % (A) 81 %; Platelet Count 236 k/uL (150-450); RBC 3.55 m/uL (3.80-5.40); RDW 15.6 % (11.5-15.5); WBC 13.8 k/uL (3.8-10.6)
[2021-06-27 04:49] LABS: Albumin 2.8 g/dL (3.5-5.0); Magnesium 1.8 mg/dL (1.6-2.3); Potassium 4.1 mmol/L (3.5-5.1); Total Bilirubin 0.1 mg/dL (0.2-1.3); Total Protein 5.3 g/dL (6.3-8.2)
[2021-06-27] MEDS: INSULIN ASPART (NovoLOG) 100 UNIT/ML VIAL SQ SCH ×4 (05:34→23:43)
[2021-06-27 05:45] LABS: Glucose,Whole Blood 125 mg/dL (75-99)
[2021-06-27] MEDS: INSULIN DETEMIR (LEVEMIR) 100 UNIT/ML SYR SQ SCH ×2 (06:31→20:44)
--- NOTE | 2021-06-27 07:21 | XR ---
EXAMINATION TYPE: XR chest 1V DATE OF EXAM: 06/27/2021 COMPARISON: 06/26/2021 HISTORY: 66-year-old female intubated TECHNIQUE: Single frontal view of the chest is obtained. FINDINGS: ET tube tip satisfactory. Metallic BB or marker projects along the midline just below the thoracic in let, unchanged from prior. NG tube courses below the diaphragm. Left CVC tip in the mid to lower SVC. The heart is mildly enlarged. Interstitial densities persist. Improving aeration at the left base. S light increased patchy density at the periphery of the right base. IMPRESSION: 1. Mild cardiomegaly and interstitial changes persist, possible mild pulmonary vascular congestion ve rsus atypical pneumonia. 2. Interval clearing of the previous opacity at the left base. Increased mild patchy density at the r ight base could represent atelectasis. 3. Incidental redemonstrated retained BB/metallic pellet within the anterior midline soft tissues meenu r the thoracic inlet level.
[2021-06-27] MEDS: ASPIRIN 81 MG PO SCH (08:40)
[2021-06-27] MEDS: ENOXAPARIN 40 MG/0.4 ML SYRINGE SQ SCH (08:40)
[2021-06-27] MEDS: AMIODARONE 200 MG TAB PO SCH ×2 (08:40→20:45)
[2021-06-27] MEDS: ATORVASTATIN 40 MG TAB PO SCH (08:40)
[2021-06-27] MEDS: CHLORHEXIDINE GLUCONATE 15 ML CUP MUCOUS MEM SCH ×2 (08:40→20:44)
[2021-06-27] MEDS: METOPROLOL TARTRATE 25 MG TAB PO SCH ×2 (08:40→20:43)
[2021-06-27] MEDS: SODIUM CHLORIDE 0.9% 1,000 ML IV SCH ×2 (08:53→20:47)
--- NOTE | 2021-06-27 10:12 | P.CONS ---
History of Present Illness - Reason for Consult Consult date: 06/27/21 Wound care - History of Present Illness This is a 66-year-old patient being seen in ICU for a nonhealing ulceration to the right calcaneus. Patient is currently intubated and unable to answer any questions. The ulceration is located on the plantar aspect of the heel measuring approximate 4 x 3 x 0.2 cm the wound edges are attached to the wound base areas granulation and moderate amount of slough and debris noted within the wound bed. No tunneling or undermining noted. The periwound does have callus. Review of systems: Unable to obtain due to mechanical intubation Physical exam: General Appearance: Alert, cooperative, no distress, appears stated age. Skin: See HPI all other Skin color, texture, tugor normal, no rashes or lesions. Neurologic: Alert oriented x3 Assessment: 1. Pressure ulcer stage II 2. Diabetic foot ulcer Plan: 1.Right calcaneus: Apply honey alginate, filling was gauze, dry gauze, border foam. Changed Thursday. Utilize foam heel protectors. Thank you for the consultation any questions please contact the wound care center DNP note has been reviewed and discussed with Dr. Arriaga and the impression and plan of care has been directed as dictated. Past Medical History Past Medical History: Diabetes Mellitus History of Any Multi-Drug Resistant Organisms: MRSA Year Discovered:: 04/20/20 MDRO Source:: MRSA FOOT Past Anesthesia/Blood Transfusion Reactions: No Reported Reaction Smoking Status: Unknown if ever smoked Medications and Allergies Home Medications Medication Instructions Recorded Confirmed Type Collagenase [Santyl] 1 applic TOPICAL DAILY PRN 06/25/21 06/25/21 History Diazepam [Valium] 5 mg PO HS PRN 06/25/21 06/25/21 History Insulin Glargine [Lantus Vial] 38 unit SQ BID 06/25/21 06/25/21 History metFORMIN HCL 1,000 mg PO BID 06/25/21 06/25/21 History Allergies Allergy/AdvReac Type Severity Reaction Status Date / Time No Known Allergies Allergy Verified 06/25/21 15:32 Physical Exam Vitals: Vital Signs Temp Pulse Resp BP Pulse Ox 06/27/21 09:00 68 25 H 98 06/27/21 08:00 98.7 F 66 26 H 98 06/27/21 07:00 71 55 H 97 06/27/21 06:00 69 28 H 98 06/27/21 05:00 70 24 98 06/27/21 04:00 99.4 F 70 29 H 97 06/27/21 03:00 67 27 H 97 06/27/21 02:00 66 26 H 96 06/27/21 01:00 66 24 96 06/27/21 00:00 99.1 F 67 28 H 94 L 06/26/21 23:59 20 06/26/21 23:00 66 20 95 06/26/21 22:00 70 24 91 L 06/26/21 21:00 64 23 116/63 95 06/26/21 20:00 100.1 F H 68 28 H 97 06/26/21 19:00 69 27 H 98 06/26/21 18:00 68 28 H 97 06/26/21 17:00 65 30 H 96 06/26/21 16:00 68 32 H 100 06/26/21 15:00 98.3 F 67 30 H 99 06/26/21 14:45 64 26 H 100 06/26/21 14:30 62 28 H 100 06/26/21 14:15 62 30 H 100 06/26/21 14:00 62 26 H 100 06/26/21 13:45 61 29 H 100 06/26/21 13:30 63 36 H 100 06/26/21 13:15 62 22 100 06/26/21 13:00 64 24 100 06/26/21 12:45 64 24 100 06/26/21 12:30 65 29 H 100 06/26/21 12:15 64 18 99 06/26/21 12:00 98.7 F 62 27 H 99 06/26/21 11:45 73 27 H 97 06/26/21 11:30 75 29 H 100 06/26/21 11:15 72 17 99 06/26/21 11:00 74 30 H 98 06/26/21 10:45 70 31 H 97 06/26/21 10:30 72 31 H 94 L 06/26/21 10:15 69 31 H 99 Intake and Output 06/26/21 06/27/21 06/27/21 22:59 06:59 14:59 Intake Total 700 620.851 225 Output Total 475 380 180 Balance 225 240.851 45 Intake: IV 600 450 225 Sodium Chloride 0.9% 1, 600 450 225 000 ml @ 75 mls/hr IV . [id number] [facility] Rx#:[id number] Intake, IV Titration 100 170.851 Amount propofoL 1,000 mg In 100 170.851 Empty Bag 1 bag @ Titrate IV .Q0M [facility] Rx#: [id number] Output: Urine 475 380 180 Other: Voiding Method Indwelling Catheter Indwelling Catheter Indwelling Catheter Weight 123.6 kg ABP, PAP, CO, CI - Last 8 Hours Arterial Blood Pressure 168/65 Arterial Blood Pressure 145/56 Arterial Blood Pressure 150/58 Arterial Blood Pressure 152/58 Arterial Blood Pressure 162/65 Arterial Blood Pressure 139/55 Arterial Blood Pressure 128/52 Results CBC & Chem 7: 06/27/21 04:12 06/27/21 04:12 Labs: Abnormal Lab Results - Last 24 Hours (Table) 06/26/21 06/26/21 06/26/21 Range/Units 11:52 18:04 23:40 WBC (3.8-10.6) k/uL RBC (3.80-5.40) m/uL Hgb (11.4-16.0) gm/dL Hct (34.0-46.0) % RDW (11.5-15.5) % Neutrophils # (1.3-7.7) k/uL ABG pCO2 (35-45) mmHg ABG pO2 (83-108) mmHg ABG HCO3 (21-25) mmol/L ABG Total CO2 (19-24) mmol/L BUN (7-17) mg/dL Glucose (74-99) mg/dL POC Glucose (mg/dL) 266 H 166 H 112 H (75-99) mg/dL Calcium (8.4-10.2) mg/dL Total Bilirubin (0.2-1.3) mg/dL ALT (4-34) U/L Total Protein (6.3-8.2) g/dL Albumin (3.5-5.0) g/dL 06/27/21 06/27/21 06/27/21 Range/Units 04:06 04:12 04:12 WBC 13.8 H (3.8-10.6) k/uL RBC 3.55 L (3.80-5.40) m/uL Hgb 10.4 L (11.4-16.0) gm/dL Hct 32.0 L (34.0-46.0) % RDW 15.6 H (11.5-15.5) % Neutrophils # 11.1 H (1.3-7.7) k/uL ABG pCO2 47 H (35-45) mmHg ABG pO2 77 L (83-108) mmHg ABG HCO3 28 H (21-25) mmol/L ABG Total CO2 30 H (19-24) mmol/L BUN 31 H (7-17) mg/dL Glucose 123 H (74-99) mg/dL POC Glucose (mg/dL) (75-99) mg/dL Calcium 8.0 L (8.4-10.2) mg/dL Total Bilirubin 0.1 L (0.2-1.3) mg/dL ALT 35 H (4-34) U/L Total Protein 5.3 L (6.3-8.2) g/dL Albumin 2.8 L (3.5-5.0) g/dL 06/27/21 Range/Units 05:33 WBC (3.8-10.6) k/uL RBC (3.80-5.40) m/uL Hgb (11.4-16.0) gm/dL Hct (34.0-46.0) % RDW (11.5-15.5) % Neutrophils # (1.3-7.7) k/uL ABG pCO2 (35-45) mmHg ABG pO2 (83-108) mmHg ABG HCO3 (21-25) mmol/L ABG Total CO2 (19-24) mmol/L BUN (7-17) mg/dL Glucose (74-99) mg/dL POC Glucose (mg/dL) 125 H (75-99) mg/dL Calcium (8.4-10.2) mg/dL Total Bilirubin (0.2-1.3) mg/dL ALT (4-34) U/L Total Protein (6.3-8.2) g/dL Albumin (3.5-5.0) g/dL Microbiology - Last 24 Hours (Table) 06/25/21 15:33 Blood Culture - Preliminary Blood No Growth after 24 hours 06/25/21 15:52 Blood Culture - Preliminary Blood No Growth after 24 hours 06/25/21 15:23 Gram Stain - Preliminary Sputum Sputum Culture - Preliminary Assessment and Plan (1) Pressure ulcer of left heel, stage 2 Current Visit: Yes Status: Acute Code(s): L89.622 - PRESSURE ULCER OF LEFT HEEL, STAGE 2 SNOMED Code(s): 181952034 (2) Diabetic foot ulcer associated with type 2 diabetes mellitus, with fat layer exposed Current Visit: Yes Status: Acute Code(s): E11.621 - TYPE 2 DIABETES MELLITUS WITH FOOT ULCER; L97.502 - NON-PRS CHRONIC ULCER OTH PRT UNSP FOOT W FAT LAYER EXPOSED SNOMED Code(s): 6824168543885
--- NOTE | 2021-06-27 10:51 | P.PN ---
Subjective Progress Note Date: 06/27/21 Principal diagnosis: cardiac arrest Today's evaluation on 06/27/2021 patient seen in the intensive care unit, yesterday she was given sedation holiday during which she became very anxious, agitated, however she remained nonpurposeful, she became very tachypneic and noncompliant with the ventilator, she was back on assist control mode of ventilation overnight. This morning she remains sedated, intubated on assist control mode of ventilation with a rate of 20, tidal emesis 400, FiO2 of 40% and PEEP of 5. This morning's blood gas shows pO2 of 77, pCO2 of 47, and PEEP of 5, this was done on the above mentioned settings. A chest x-ray shows cardiomegaly, and interstitial changes, mild pulmonary vascular congestion, with interval clearing of the previous opacity at the left lung base, and increased mild patchy density at the right base. Patient remains on Zosyn for empiric antibiotic coverage, she has had no fever or chills overnight, hemodynamically she is much more stable, she has been off pressors since yesterday, she is currently on 0.9 within a rate of 75 ML per hour, Diprivan and is at 25 mics per kilo per minute, and note that the patient has only required minimal sedation, and her sedation has been at 25 mics per kilo per minute of the program all kulwant g. Her pulse ox is 96%. Is in sinus mechanism with a rate of 63, no reported arrhythmias overnight, cardiology is following, patient is status post cardiac catheterization, with no evidence of acute ischemic coronary artery disease, and patient is on medical therapy per cardiology recommendations. Her troponins peaked at 0.473 with a second troponin, her last set of troponins were yesterday at 5:00 in the morning with a troponin of 0.435. Echocardiogram has been completed showing preserved LV function with EF of 55-60%, severe concentric LVH, moderate mitral stenosis, mild tricuspid regurgitation, moderate pulmonary hypertension with right-sided pressure of 54.3 mmHg. There was a small generalized pericardial effusion present. VC was dilated with no significant inspiratory collapse consistent with estimated right-sided atrial pressure of greater than 20 mg of mercury. Neurologically patient is quite sedated on 25 mics of the prevent, she withdraws to painful stimuli, she does move all 4 extremities, she breathes over the vent, does have a positive gag, negative Babinski. Today's labs have been reviewed, white blood cell count is improving and is down to 13.8, hemoglobin is 10.4. No Other acute events overnight. Objective - Vital Signs Vital signs: Vital Signs Temp 98.7 F 06/27/21 08:00 Pulse 68 06/27/21 09:00 Resp 25 H 06/27/21 09:00 BP 116/63 06/26/21 21:00 Pulse Ox 98 06/27/21 09:00 Intake & Output 06/26/21 06/27/21 06/27/21 18:59 06:59 18:59 Intake Total 1225.000 920.851 225 Output Total 810 630 180 Balance 415.000 290.851 45 Weight 124.3 kg 123.6 kg Intake: IV 1025 750 225 Piperacillin-Tazobactam 3 125 .375 gm In Sodium Chloride 0.9% 100 ml @ 25 mls/hr IVPB Q8H [facility] Rx#: [id number] Sodium Chloride 0.9% 1, 900 750 225 000 ml @ 75 mls/hr IV . [id number] [facility] Rx#:[id number] Intake, IV Titration 200.000 170.851 Amount propofoL 1,000 mg In 200.000 170.851 Empty Bag 1 bag @ Titrate IV .Q0M [facility] Rx#: [id number] Output: Urine 810 630 180 Other: Voiding Method Indwelling Catheter Indwelling Catheter Indwelling Catheter ABP, PAP, CO, CI - Last Documented Arterial Blood Pressure 168/65 - Exam GENERAL EXAM: Deeply sedated, 66-year-old white female patient on assist- control mode of ventilation with FiO2 of 40% and PEEP of 5, the prevent currently at 25 mics per kilo per minute comfortable in no apparent distress. HEAD: Normocephalic/atraumatic. EYES: Normal reaction of pupils, equal size. Conjunctiva pink, sclera white. NOSE: Clear with pink turbinates. THROAT: No erythema or exudates. NECK: No masses, no JVD, no thyroid enlargement, no adenopathy. CHEST: No chest wall deformity. Symmetrical expansion. LUNGS: Equal air entry with no crackles, wheeze, rhonchi or dullness. CVS: Regular rate and rhythm, normal S1 and S2, no gallops, no murmurs, no rubs ABDOMEN: Soft, nontender. No hepatosplenomegaly, normal bowel sounds, no guarding or rigidity. EXTREMITIES: No clubbing, no edema, no cyanosis, 2+ pulses and upper and lower extremities. MUSCULOSKELETAL: Muscle strength and tone normal. SPINE: No scoliosis or deformity SKIN: No rashes CENTRAL NERVOUS SYSTEM: Sedated and intubated, withdraws from painful stimuli, breathes over the vent, positive cough and gag reflex, moves all 4 extremities, negative Babinski - Labs CBC & Chem 7: 06/27/21 04:12 06/27/21 04:12 Labs: Abnormal Lab Results - Last 24 Hours (Table) 06/26/21 06/26/21 06/26/21 Range/Units 11:52 18:04 23:40 WBC (3.8-10.6) k/uL RBC (3.80-5.40) m/uL Hgb (11.4-16.0) gm/dL Hct (34.0-46.0) % RDW (11.5-15.5) % Neutrophils # (1.3-7.7) k/uL ABG pCO2 (35-45) mmHg ABG pO2 (83-108) mmHg ABG HCO3 (21-25) mmol/L ABG Total CO2 (19-24) mmol/L BUN (7-17) mg/dL Glucose (74-99) mg/dL POC Glucose (mg/dL) 266 H 166 H 112 H (75-99) mg/dL Calcium (8.4-10.2) mg/dL Total Bilirubin (0.2-1.3) mg/dL ALT (4-34) U/L Total Protein (6.3-8.2) g/dL Albumin (3.5-5.0) g/dL 06/27/21 06/27/21 06/27/21 Range/Units 04:06 04:12 04:12 WBC 13.8 H (3.8-10.6) k/uL RBC 3.55 L (3.80-5.40) m/uL Hgb 10.4 L (11.4-16.0) gm/dL Hct 32.0 L (34.0-46.0) % RDW 15.6 H (11.5-15.5) % Neutrophils # 11.1 H (1.3-7.7) k/uL ABG pCO2 47 H (35-45) mmHg ABG pO2 77 L (83-108) mmHg ABG HCO3 28 H (21-25) mmol/L ABG Total CO2 30 H (19-24) mmol/L BUN 31 H (7-17) mg/dL Glucose 123 H (74-99) mg/dL POC Glucose (mg/dL) (75-99) mg/dL Calcium 8.0 L (8.4-10.2) mg/dL Total Bilirubin 0.1 L (0.2-1.3) mg/dL ALT 35 H (4-34) U/L Total Protein 5.3 L (6.3-8.2) g/dL Albumin 2.8 L (3.5-5.0) g/dL 06/27/21 Range/Units 05:33 WBC (3.8-10.6) k/uL RBC (3.80-5.40) m/uL Hgb (11.4-16.0) gm/dL Hct (34.0-46.0) % RDW (11.5-15.5) % Neutrophils # (1.3-7.7) k/uL ABG pCO2 (35-45) mmHg ABG pO2 (83-108) mmHg ABG HCO3 (21-25) mmol/L ABG Total CO2 (19-24) mmol/L BUN (7-17) mg/dL Glucose (74-99) mg/dL POC Glucose (mg/dL) 125 H (75-99) mg/dL Calcium (8.4-10.2) mg/dL Total Bilirubin (0.2-1.3) mg/dL ALT (4-34) U/L Total Protein (6.3-8.2) g/dL Albumin (3.5-5.0) g/dL Microbiology - Last 24 Hours (Table) 06/25/21 15:33 Blood Culture - Preliminary Blood No Growth after 24 hours 06/25/21 15:52 Blood Culture - Preliminary Blood No Growth after 24 hours 06/25/21 15:23 Gram Stain - Preliminary Sputum Sputum Culture - Preliminary Assessment and Plan Plan: Assessment: #1. Acute cardiac arrest. The patient encounter the defibrillator arrest, witnessed, EMS was in the scene and the patient received defibrillation and resuscitation according to the ACLS protocol. The patient has a downtime of more than 20 minutes estimated to be around 20-25 minutes per records. Consider underlying development of anoxic encephalopathy. Echo of the heart showed a preserved LV function with concentric LVH and moderate mitral stenosis and moderate to severe pulmonary hypertension. Consider prolongation of QT as a cause for underlying V. fib arrest. Cardiac catheterization showed nonocclusive on a artery disease. #2. Acute hypoxic respiratory failure secondary to above. The patient developed diffuse breath and pulmonary infiltrates right more than left and the patient has significant consolidation lung bases right more than left. Consider aspiration. The patient remains on IV Zosyn. There is interval improvement in the bilateral pulmonary infiltrates as noted. #3. Unresponsiveness post cardiac arrest. Consider underlying hypoxic encephalopathy, sedation holiday will be given and the patient's underlying mental status will be assessed #4. Acute leukocytosis secondary to above, improving #5. Minimal troponin leak secondary to above. The patient also received CPR #6. Diabetes mellitus. #7. Hyperlipidemia Plan: Vent settings will remain the same Today's blood gas and chest x-ray reviewed Continue Zosyn Hemodynamically patient is stable not requiring any vasopressor support No arrhythmias overnight Cardiac cath report and echocardiogram report reviewed Yesterday patient fails sedation holiday, became very anxious and agitated, but nonpurposeful We will attempt another sedation holiday today Neurology consultation has been requested initial brain scan was negative Plan EEG GI and DVT prophylaxis Continue to closely follow in intensive care unit I performed a history & physical examination of the patient and discussed their management with my nurse practitioner, Gail Brooke. I reviewed the nurse practitioner's note and agree with the documented findings and plan of care. Lung sounds are positive for diminished breath sounds throughout the lung breen. The findings and the impression was discussed with the patient. I attest to the documentation by the nurse practitioner. Time with Patient: Greater than 30
--- NOTE | 2021-06-27 11:42 | PN ---
PROGRESS NOTE Mrs. Arreguin is a 66-year-old female who presented with a cardiac arrest and ventricular fibrillation, cardioversion. She subsequently underwent cardiac catheterization that revealed no evidence of significant obstructive disease. Her echocardiogram revealed preserved ventricular systolic function. She remains intubated. She is not waking up. She has not had any further episodes of ventricular arrhythmia. She continues on amiodarone 400 mg twice a day, Lipitor 40 mg daily, metoprolol tartrate 12.5 mg twice a day, aspirin once a day. PHYSICAL EXAMINATION: Blood pressure is 145/60 with the heart rate between 60 and 70. LUNGS: Clear anteriorly. HEART: Regular rate and rhythm. S1, S2. No S3. No rub. ABDOMEN: Soft. Positive bowel sounds. No organomegaly. EXTREMITIES: No edema. LAB DATA: BUN and creatinine 31 and 0.92. Potassium 4.1, hemoglobin 10.4. IMPRESSION: 1. Cardiopulmonary arrest with ventricular fibrillation and cardioversion. Etiology unclear. Her EKG did not show any acute changes. Her intervals are stable. 2. Mild coronary artery disease, nonobstructive. 3. Preserved systolic function. 4. Hypoxic encephalopathy. 5. History of diabetes. 6. History of chronic tobacco use. RECOMMENDATIONS: I will increase the dose of her beta paul, continue her amiodarone. I will continue to attempt to wean her. Depending on her mental status and depending on her progress, further recommendations will be made. The prognosis remains guarded. MMODL / SHARIFN: [id number] /
[2021-06-27 12:17] LABS: Glucose,Whole Blood 122 mg/dL (75-99)
[2021-06-27] MEDS: DEXMEDETOMIDINE/0.9% NACL(PMX) 400 MCG in EMPTY BAG 1 BAG IV SCH ×2 (13:39→23:00)
[2021-06-27] MEDS ORDERED: NOREPINEPHRIN 4 MG-0.9% NS PMX 4 MG/250 ML ML IV ONE (14:36)
[2021-06-27 17:51] LABS: Glucose,Whole Blood 132 mg/dL (75-99)
[2021-06-27 23:40] LABS: Glucose,Whole Blood 158 mg/dL (75-99)
[2021-06-28 04:26] LABS: ABG Base Excess 2.1 mmol/L; ABG HCO3 28 mmol/L (21-25); ABG Oxygen Saturation 97.6 % (94-97); ABG PCO2 50 mmHg (35-45); ABG PH 7.35 (7.35-7.45); ABG PO2 97 mmHg (83-108); ABG TCO2 29 mmol/L (19-24); Allen Test Performed? Yes
[2021-06-28] MEDS: PIPERACILLIN-TAZOBACTAM 3.375 GM in SODIUM CHLORIDE 0.9% 100 ML IVPB SCH ×3 (04:31→19:52)
[2021-06-28 04:56] LABS: Basophils # (A) 0.1 k/uL (0-0.2); Basophils % (A) 0 %; Eosinophils # (A) 0.2 k/uL (0-0.7); Eosinophils % (A) 1 %; HCT 31.2 % (34.0-46.0); HGB 10.1 gm/dL (11.4-16.0); Lymphocytes # (A) 2.1 k/uL (1.0-4.8); Lymphocytes % (A) 15 %; MCH 29.2 pg (25.0-35.0); MCHC 32.4 g/dL (31.0-37.0); MCV 90.1 fL (80.0-100.0); Monocytes # (A) 0.9 k/uL (0-1.0); Monocytes % (A) 6 %; Neutrophils # (A) 10.4 k/uL (1.3-7.7); Neutrophils % (A) 75 %; Platelet Count 242 k/uL (150-450); RBC 3.46 m/uL (3.80-5.40); RDW 15.7 % (11.5-15.5); WBC 13.8 k/uL (3.8-10.6)
[2021-06-28 05:23] LABS: Calcium 8.5 mg/dL (8.4-10.2); Potassium 4.3 mmol/L (3.5-5.1)
[2021-06-28 06:16] LABS: Glucose,Whole Blood 129 mg/dL (75-99)
--- NOTE | 2021-06-28 07:26 | XR ---
EXAMINATION TYPE: XR chest 1V portable DATE OF EXAM: 06/28/2021 COMPARISON: 06/27/2021 HISTORY: SOB, Follow Up FINDINGS: Indwelling tubes and catheters are unchanged. Mild right infrahilar patchy density persists. No change seen. Stable appearance of the cardio-mediastinal structures at this time. IMPRESSION: 1. Stable portable chest. Clinical correlation and follow up until resolution is recommended.
[2021-06-28] MEDS: DEXMEDETOMIDINE/0.9% NACL(PMX) 400 MCG in EMPTY BAG 1 BAG IV SCH ×2 (08:27→13:27)
[2021-06-28] MEDS: INSULIN ASPART (NovoLOG) 100 UNIT/ML VIAL SQ SCH ×3 (08:35→18:32)
[2021-06-28] MEDS: ASPIRIN 81 MG PO SCH (08:41)
[2021-06-28] MEDS: INSULIN DETEMIR (LEVEMIR) 100 UNIT/ML SYR SQ SCH ×2 (08:41→21:50)
[2021-06-28] MEDS: AMIODARONE 200 MG TAB PO SCH ×2 (08:41→21:50)
[2021-06-28] MEDS: ENOXAPARIN 40 MG/0.4 ML SYRINGE SQ SCH (08:41)
[2021-06-28] MEDS: ATORVASTATIN 40 MG TAB PO SCH (08:41)
[2021-06-28] MEDS: CHLORHEXIDINE GLUCONATE 15 ML CUP MUCOUS MEM SCH ×2 (08:41→21:50)
--- NOTE | 2021-06-28 09:33 | PN ---
PROGRESS NOTE Ms. Arreguin is a 66-year-old female who presented to the emergency room with cardiac arrest and ventricular fibrillation status post CVN by EMS. She underwent cardiac catheterization was found to have no evidence of significant obstructive disease and the left ventricular systolic function was preserved. She remains intubated. She is opening her eyes and moving her extremities. Not following verbal command so far. Hemodynamically, she is stable. She continues to be in sinus mechanism. There is no evidence of tachy or sanchez arrhythmia. She had no further episode of left ventricular tachycardia. She continues to be at this time on aspirin once a day, amiodarone 4 mg twice a day, Lipitor 40 mg daily, metoprolol tartrate 25 mg twice a day. PHYSICAL EXAMINATION: Blood pressure 127/50 with a heart rate in the 50s. LUNGS: Clear anteriorly. HEART: Regular rate and rhythm S1, S2. No S3. No rub with no gallop. ABDOMEN: Soft, positive bowel sounds. No organomegaly. EXTREMITIES: No edema. LABORATORY DATA: BUN and creatinine 29 and 0.88. Potassium 4.3. Her pH 7.35 with pCO2 of 50 and PO2 of 97. Hemoglobin 10.1, white blood cells 13.8. IMPRESSION: 1. Cardiac arrest with ventricular fibrillation status post CPR primary etiology unclear. Her EKG shows no clear abnormalities. 2. Her cardiac catheterization showed no significant obstructive disease and she had normal left ventricular systolic function. 3. Respiratory failure. 4. Anoxic encephalopathy. 5. Diabetes mellitus. 6. History of chronic tobacco use. RECOMMENDATIONS: From the cardiac standpoint, I will cut down the dose of her amiodarone to 200 mg twice a day. We will continue rest of medical regimen. The fact that she is opening her eyes and moving her extremities is encouraging. Hopefully we will see continued improvement in her neurological status with which she can be weaned and extubated. The prognosis remains guarded. Depending on her progress, further recommendation will be made. MMODL / IJN: [id number] / MTDD
--- NOTE | 2021-06-28 10:26 | P.PN ---
Subjective Progress Note Date: 06/28/21 Principal diagnosis: cardiac arrest Today's evaluation on 06/27/2021 patient seen in the intensive care unit, yesterday she was given sedation holiday during which she became very anxious, agitated, however she remained nonpurposeful, she became very tachypneic and noncompliant with the ventilator, she was back on assist control mode of ventilation overnight. This morning she remains sedated, intubated on assist control mode of ventilation with a rate of 20, tidal emesis 400, FiO2 of 40% and PEEP of 5. This morning's blood gas shows pO2 of 77, pCO2 of 47, and PEEP of 5, this was done on the above mentioned settings. A chest x-ray shows cardiomegaly, and interstitial changes, mild pulmonary vascular congestion, with interval clearing of the previous opacity at the left lung base, and increased mild patchy density at the right base. Patient remains on Zosyn for empiric antibiotic coverage, she has had no fever or chills overnight, hemodynamically she is much more stable, she has been off pressors since yesterday, she is currently on 0.9 within a rate of 75 ML per hour, Diprivan and is at 25 mics per kilo per minute, and note that the patient has only required minimal sedation, and her sedation has been at 25 mics per kilo per minute of the program all kulwant g. Her pulse ox is 96%. Is in sinus mechanism with a rate of 63, no reported arrhythmias overnight, cardiology is following, patient is status post cardiac catheterization, with no evidence of acute ischemic coronary artery disease, and patient is on medical therapy per cardiology recommendations. Her troponins peaked at 0.473 with a second troponin, her last set of troponins were yesterday at 5:00 in the morning with a troponin of 0.435. Echocardiogram has been completed showing preserved LV function with EF of 55-60%, severe concentric LVH, moderate mitral stenosis, mild tricuspid regurgitation, moderate pulmonary hypertension with right-sided pressure of 54.3 mmHg. There was a small generalized pericardial effusion present. VC was dilated with no significant inspiratory collapse consistent with estimated right-sided atrial pressure of greater than 20 mg of mercury. Neurologically patient is quite sedated on 25 mics of the prevent, she withdraws to painful stimuli, she does move all 4 extremities, she breathes over the vent, does have a positive gag, negative Babinski. Today's labs have been reviewed, white blood cell count is improving and is down to 13.8, hemoglobin is 10.4. No Other acute events overnight. On 06/28/2021 patient is seen in follow-up in the intensive care unit, she remains sedated and intubated on mechanical ventilator, currently on assist control mode of ventilation with a rate of 20, tidal volume 400, FiO2 of 40% and PEEP of 5, this morning's blood gas shows pO2 of 97, pCO2 50, pH is 7.35, and this was done on the above mentioned settings. She is currently on Diprivan at 15 mics per kilo per minute, and 0.9 normal saline at a rate of 10 ML per hour, no other drips. No vasopressor support, she is hemodynamically stable, she is in sinus mechanism with a controlled rate. Today's chest x-ray has been reviewed showing mild right infrahilar patchy density, which is stable in appearance. Today's labs have been reviewed, her white count is stable at 13.8, overall did improve since admission, hgb is 10.1, platelet count is 242, sodium is 142, potassium is 4.3, chloride is 109, BUN is 29, creatinine 0.88. 2 feedings have not been started yet, however will be started with vital AF formula at a rate of 20 with a goal of 60 ML per hour with standard water flushes. Yesterday patient was quiet deeply sedated, we held her sedation most of the day, she did go on Precedex at a low dose, and patient never actually appropriately woke up and followed commands, and in the evening she became quite restless, dyssyncronous with the ventilator, and Precedex was discontinued and she was placed back on Diprivan overnight at a low dose. This morning she does open her eyes to voice, she makes brief eye contact, she drifts back to sleep, he is not following commands yet, however her level of consciousness is improved, she is less sedated. Vital signs have been stable, she's been afebrile, blood pressure has been stable, no arrhythmias overnight. Output has been adequate in the order of 40-100 ML per hour. No other acute events overni ght. We'll proceed with another sedation holiday today. Objective - Vital Signs Vital signs: Vital Signs Temp 100.1 F H 06/28/21 08:00 Pulse 67 06/28/21 09:00 Resp 16 06/28/21 09:00 BP 116/63 06/27/21 23:00 Pulse Ox 100 06/28/21 09:00 Intake & Output 06/27/21 06/28/21 06/28/21 18:59 06:59 18:59 Intake Total 637.407 672.662 110.8 Output Total 625 670 240 Balance 12.407 2.662 -129.2 Weight 123.6 kg 122.6 kg 122.6 kg Intake: IV 620 435 60 Piperacillin-Tazobactam 3 75 .375 gm In Sodium Chloride 0.9% 100 ml @ 25 mls/hr IVPB Q8H [facility] Rx#: [id number] Sodium Chloride 0.9% 1, 620 360 60 000 ml @ 20 mls/hr IV . Q24H [facility] Rx#:[id number] Intake, IV Titration 17.407 177.662 50.8 Amount Dexmedetomidine/0.9% NaCl 17.407 177.662 (Pmx) 400 mcg In Empty Bag 1 bag @ Titrate IV . Q0M [facility] Rx#:[id number] propofoL 1,000 mg In 50.8 Empty Bag 1 bag @ Titrate IV .Q0M [facility] Rx#: [id number] Other 60 Output: Urine 625 670 240 Other: Voiding Method Indwelling Catheter Indwelling Catheter ABP, PAP, CO, CI - Last Documented Arterial Blood Pressure 151/52 - Exam GENERAL EXAM: 66-year-old white female patient on assist-control mode of ventilation with FiO2 of 40% and PEEP of 5, Diprivan and is currently at 15 mics per kilo per minute comfortable in no apparent distress. She seems to be less sedated on today's exam, she opens eyes to voice, and makes brief eye contact HEAD: Normocephalic/atraumatic. EYES: Normal reaction of pupils, equal size. Conjunctiva pink, sclera white. NOSE: Clear with pink turbinates. THROAT: No erythema or exudates. NECK: No masses, no JVD, no thyroid enlargement, no adenopathy. CHEST: No chest wall deformity. Symmetrical expansion. LUNGS: Equal air entry with no crackles, wheeze, rhonchi or dullness. CVS: Regular rate and rhythm, normal S1 and S2, no gallops, no murmurs, no rubs ABDOMEN: Soft, nontender. No hepatosplenomegaly, normal bowel sounds, no guarding or rigidity. EXTREMITIES: No clubbing, no edema, no cyanosis, 2+ pulses and upper and lower extremities. MUSCULOSKELETAL: Muscle strength and tone normal. SPINE: No scoliosis or deformity SKIN: No rashes CENTRAL NERVOUS SYSTEM: Sedated and intubated, withdraws from painful stimuli, breathes over the vent, positive cough and gag reflex, moves all 4 extremities, negative Babinski - Labs CBC & Chem 7: 06/28/21 04:35 06/28/21 04:35 Labs: Abnormal Lab Results - Last 24 Hours (Table) 06/27/21 06/27/21 06/27/21 Range/Units 12:15 17:50 23:38 WBC (3.8-10.6) k/uL RBC (3.80-5.40) m/uL Hgb (11.4-16.0) gm/dL Hct (34.0-46.0) % RDW (11.5-15.5) % Neutrophils # (1.3-7.7) k/uL ABG pCO2 (35-45) mmHg ABG HCO3 (21-25) mmol/L ABG Total CO2 (19-24) mmol/L ABG O2 Saturation (94-97) % Chloride (98-107) mmol/L BUN (7-17) mg/dL Glucose (74-99) mg/dL POC Glucose (mg/dL) 122 H 132 H 158 H (75-99) mg/dL 06/28/21 06/28/21 06/28/21 Range/Units 04:23 04:35 04:35 WBC 13.8 H (3.8-10.6) k/uL RBC 3.46 L (3.80-5.40) m/uL Hgb 10.1 L (11.4-16.0) gm/dL Hct 31.2 L (34.0-46.0) % RDW 15.7 H (11.5-15.5) % Neutrophils # 10.4 H (1.3-7.7) k/uL ABG pCO2 50 H (35-45) mmHg ABG HCO3 28 H (21-25) mmol/L ABG Total CO2 29 H (19-24) mmol/L ABG O2 Saturation 97.6 H (94-97) % Chloride 109 H (98-107) mmol/L BUN 29 H (7-17) mg/dL Glucose 123 H (74-99) mg/dL POC Glucose (mg/dL) (75-99) mg/dL 06/28/21 Range/Units 06:15 WBC (3.8-10.6) k/uL RBC (3.80-5.40) m/uL Hgb (11.4-16.0) gm/dL Hct (34.0-46.0) % RDW (11.5-15.5) % Neutrophils # (1.3-7.7) k/uL ABG pCO2 (35-45) mmHg ABG HCO3 (21-25) mmol/L ABG Total CO2 (19-24) mmol/L ABG O2 Saturation (94-97) % Chloride (98-107) mmol/L BUN (7-17) mg/dL Glucose (74-99) mg/dL POC Glucose (mg/dL) 129 H (75-99) mg/dL Microbiology - Last 24 Hours (Table) 06/25/21 15:33 Blood Culture - Preliminary Blood No Growth after 48 hours 06/25/21 15:52 Blood Culture - Preliminary Blood No Growth after 48 hours 06/25/21 15:23 Gram Stain - Final Sputum Sputum Culture - Final Assessment and Plan Plan: Assessment: #1. Acute cardiac arrest. The patient encounter the defibrillator arrest, witnessed, EMS was in the scene and the patient received defibrillation and resuscitation according to the ACLS protocol. The patient has a downtime of more than 20 minutes estimated to be around 20-25 minutes per records. Consider underlying development of anoxic encephalopathy. Echo of the heart showed a preserved LV function with concentric LVH and moderate mitral stenosis and moderate to severe pulmonary hypertension. Consider prolongation of QT as a cause for underlying V. fib arrest. Cardiac catheterization showed nonocclusive coronary artery disease. #2. Acute hypoxic respiratory failure secondary to above. The patient developed diffuse breath and pulmonary infiltrates right more than left and the patient has significant consolidation lung bases right more than left. Consider aspiration. The patient remains on IV Zosyn. There is interval improvement in the bilateral pulmonary infiltrates as noted. #3. Unresponsiveness post cardiac arrest. Consider underlying hypoxic encephalopathy, sedation holiday will be given and the patient's underlying ment al status will be assessed #4. Acute leukocytosis secondary to above, improving, to continues on Zosyn for empiric antibiotic coverage, and cultures remain negative thus far #5. Minimal troponin leak secondary to above. The patient also received CPR #6. Diabetes mellitus. #7. Hyperlipidemia Plan: Neurologically patient is more awake, and responsive on today's exam She is on light sedation We'll proceed with another sedation holiday trial Vent settings will remain the same Today's blood gas and chest x-ray reviewed Continue Zosyn, send pro-calcitonin level Hemodynamically patient is stable not requiring any vasopressor support No arrhythmias overnight Neurology consultation has been requested and pending at this time GI and DVT prophylaxis Continue to closely follow in intensive care unit I performed a history & physical examination of the patient and discussed their management with my nurse practitioner, Gail Brooke. I reviewed the nurse practitioner's note and agree with the documented findings and plan of care. Lung sounds are positive for diminished breath sounds throughout the lung breen. The findings and the impression was discussed with the patient. I attest to the documentation by the nurse practitioner. Time with Patient: Greater than 30
[2021-06-28] MEDS: METOPROLOL TARTRATE 25 MG TAB PO SCH ×2 (12:02→21:50)
[2021-06-28 12:08] LABS: Glucose,Whole Blood 107 mg/dL (75-99)
--- NOTE | 2021-06-28 15:20 | EEG ---
ELECTROENCEPHALOGRAM REPORT DATE OF SERVICE: 06/28/2021 PREAMBLE: This is a 66-year-old female with cardiac arrest. This EEG is performed to evaluate for any encephalopathy, rule out any epileptiform activity. EEG FINDINGS: This is a 21-channel portable EEG recorded in a patient utilizing 10/20 international system with referential and bipolar montage. Background consists of poorly developed and regulated, somewhat suppressed, low-amplitude background seen in bihemispheric region. Moderate-amplitude mixed theta and delta slowing was seen in the frontal region. The background does not seem to be reactive to eye opening or closing. Different stages of sleep were not seen. No focal or generalized epileptiform activity was seen. IMPRESSION: This is an abnormal EEG due to background slowing of moderate to severe degree. This is suggestive of generalized cerebral dysfunction as can be seen with toxic metabolic encephalopathy or from diffuse structural brain abnormality. No epileptiform activity was seen. MMODL / IJN: [id number] /
--- NOTE | 2021-06-28 15:42 | P.CNNES ---
History of Present Illness Consult date: 06/28/21 Requesting physician: Gail Brooke Reason for Consult: Cardiac arrest History of Present Illness: Patient is a 66-year-old female came to the hospital on 06/25/2021 at 2:41 PM after she had a cardiac arrest. Patient has history of diabetes. EMS flow sheet not available in the chart. According to the family report, patient went down to sitting in a chair and became unresponsive and they started CPR. EMS was called and when they arrived, patient was in V. fib and shocked her when she went to PEA and another 15 minutes of CPR was done. They were able to place Claus tube and the pulses returned. Patient was down for about 25-30 minutes prior to pulse returning (by ED report from Dr. Osullivan), whereas other reports mentioning about 20-25 minutes. Patient was intubated in the ER. CT head showed no acute intracranial hemorrhage or midline shift. Mild to moderate diffuse age-related cerebral atrophy and mild chronic small vessel ischemic change. CBC shows to be BC 13.8 hemoglobin 10.1, platelets 242. Chem- 7 shows normal electrolytes, BU and 29 creatinine 0.88. Calcium is normal. AST is normal 33, ALT borderline 35. Garcia virus PCR negative. Troponin is mildly elevated. Lipid panel with cholesterol 162, LDL 98.8, HDL 43 and triglycerides 101. Patient underwent cardiac catheterization and showed nonocclusive coronary artery disease. Patient takes insulin, metformin and Valium 5 mg as needed. Patient was on propofol. However since 8:30 AM, it has been switched to Precedex. Patient at present is waking up, and following commands as per examination below. No seizures have been reported. Review of Systems ROS unobtainable: due to endotracheal tube, due to mental status Past Medical History Past Medical History: Diabetes Mellitus History of Any Multi-Drug Resistant Organisms: MRSA Date of last positivie culture/infection: 04/20/20 MDRO Source:: MRSA FOOT Past Anesthesia/Blood Transfusion Reactions: No Reported Reaction Smoking Status: Unknown if ever smoked Medications and Allergies Home Medications Medication Instructions Recorded Confirmed Type Collagenase [Santyl] 1 applic TOPICAL DAILY PRN 06/25/21 06/25/21 History Diazepam [Valium] 5 mg PO HS PRN 06/25/21 06/25/21 History Insulin Glargine [Lantus Vial] 38 unit SQ BID 06/25/21 06/25/21 History metFORMIN HCL 1,000 mg PO BID 06/25/21 06/25/21 History Allergies Allergy/AdvReac Type Severity Reaction Status Date / Time No Known Allergies Allergy Verified 06/25/21 15:32 Physical Examination - Vital Signs Vital Signs: Vital Signs Temp Pulse Resp BP Pulse Ox 06/28/21 09:00 67 16 100 06/28/21 08:00 100.1 F H 56 L 12 99 06/28/21 07:00 60 20 99 06/28/21 06:00 61 27 H 98 06/28/21 05:00 58 L 24 100 06/28/21 04:00 56 L 32 H 100 06/28/21 03:00 57 L 20 100 06/28/21 02:00 59 L 20 100 06/28/21 01:00 63 26 H 100 06/28/21 00:06 64 42 H 96 06/28/21 00:00 65 20 94 L 06/27/21 23:00 66 23 97 06/27/21 22:00 67 30 H 98 06/27/21 21:00 60 34 H 98 06/27/21 20:00 63 19 116/63 97 06/27/21 19:00 64 25 H 97 06/27/21 18:00 59 L 20 97 06/27/21 17:00 60 30 H 98 06/27/21 16:00 99.1 F 60 28 H 98 06/27/21 15:00 61 25 H 96 06/27/21 14:00 65 27 H 97 06/27/21 13:00 86 27 H 98 06/27/21 12:00 98.5 F 65 28 H 96 06/27/21 11:00 63 23 96 Intake and Output 06/27/21 06/28/21 06/28/21 22:59 06:59 14:59 Intake Total 435.069 365.00 110.8 Output Total 410 445 240 Balance 25.069 -80.00 -129.2 Intake: IV 280 265 60 Piperacillin-Tazobactam 3 50 25 .375 gm In Sodium Chloride 0.9% 100 ml @ 25 mls/hr IVPB Q8H [facility] Rx#: [id number] Sodium Chloride 0.9% 1, 230 240 60 000 ml @ 20 mls/hr IV . Q24H [facility] Rx#:[id number] Intake, IV Titration 95.069 100.00 50.8 Amount Dexmedetomidine/0.9% NaCl 95.069 100.00 (Pmx) 400 mcg In Empty Bag 1 bag @ Titrate IV . Q0M [facility] Rx#:[id number] propofoL 1,000 mg In 50.8 Empty Bag 1 bag @ Titrate IV .Q0M [facility] Rx#: [id number] Other 60 Output: Urine 410 445 240 Other: Voiding Method Indwelling Catheter Indwelling Catheter Weight 122.6 kg 122.6 kg ABP, PAP, CO, CI - Last 8 Hours Arterial Blood Pressure 151/52 Arterial Blood Pressure 95/35 Arterial Blood Pressure 122/43 Arterial Blood Pressure 130/45 Arterial Blood Pressure 127/49 Arterial Blood Pressure 137/63 Arterial Blood Pressure 117/49 Patient is an elderly female, who is intubated. She is not on sedation except for Precedex. Patient was somnolent, but on calling her name, did open her eyes, and would make eye contact, and would move her gaze as well as move her head to the side of the examiner. Patient nodded appropriately. Patient appeared quite awake and alert. Speech and language functions could not be assessed, although she was comprehending directions as mentioned below. Attention, concentration appeared quite intact, although slow mentation at times. On cranial examination, pupils are round and reacting to light, visual breen could not be tested, extraocular muscles are intact with no nystagmus. Patient moves her eyes to the left and right equally. Face and tongue cannot be assessed because of intubation. Palatal elevation cannot be checked. Patient does hear well, facial sensation cannot be checked. On muscle strength testing, patient did not move the arms of the hands to commands. However patient did wiggle her foot and toes bilaterally and appeared fairly strong wiggles. Deep tendon reflexes are hypoactive and plantars are flat. Sensory to touch could not be checked. Cerebellar function could not be checked. Tone and bulk of muscles normal. Gait not able to be checked. On general examination, there is no carotid bruit or murmur, S1-S2 audible. Abdomen is soft nontender. Chest is clear. Peripheral pulses are present. Mild peripheral edema. Results - Laboratory Findings CBC and BMP: 06/28/21 04:35 06/28/21 04:35 Abnormal Lab Findings: Abnormal Labs 06/25/21 06/25/21 06/25/21 14:46 14:58 14:58 WBC 23.4 H RBC Hgb Hct MCHC RDW Neutrophils # 18.7 H Monocytes # APTT D-Dimer >34.10 H ABG pH ABG pCO2 ABG pO2 ABG HCO3 ABG Total CO2 ABG O2 Saturation Sodium Chloride BUN Glucose POC Glucose (mg/dL) 222 H Calcium Total Bilirubin AST ALT Troponin I Total Protein Albumin 06/25/21 06/25/21 06/25/21 14:58 14:58 17:08 WBC RBC Hgb Hct MCHC RDW Neutrophils # Monocytes # APTT D-Dimer ABG pH 7.23 L ABG pCO2 63 H ABG pO2 188 H ABG HCO3 26 H ABG Total CO2 28 H ABG O2 Saturation 99.3 H Sodium Chloride BUN 20 H Glucose 227 H POC Glucose (mg/dL) Calcium Total Bilirubin AST 125 H ALT 53 H Troponin I 0.081 H* Total Protein Albumin 06/25/21 06/25/21 06/25/21 17:52 17:59 17:59 WBC 22.2 H RBC Hgb Hct MCHC 30.9 L RDW Neutrophils # 18.7 H Monocytes # 1.3 H APTT 35.8 H D-Dimer ABG pH ABG pCO2 ABG pO2 ABG HCO3 ABG Total CO2 ABG O2 Saturation Sodium Chloride BUN Glucose POC Glucose (mg/dL) 243 H Calcium Total Bilirubin AST ALT Troponin I Total Protein Albumin 06/25/21 06/26/21 06/26/21 17:59 05:17 05:20 WBC RBC Hgb Hct MCHC RDW Neutrophils # Monocytes # APTT D-Dimer ABG pH 7.34 L ABG pCO2 49 H ABG pO2 ABG HCO3 26 H ABG Total CO2 28 H ABG O2 Saturation 97.8 H Sodium Chloride BUN Glucose POC Glucose (mg/dL) Calcium Total Bilirubin AST ALT Troponin I 0.473 H* 0.435 H* Total Protein Albumin 06/26/21 06/26/21 06/26/21 05:24 06:00 06:15 WBC 14.2 H RBC Hgb Hct MCHC RDW Neutrophils # 12.6 H Monocytes # APTT D-Dimer ABG pH ABG pCO2 ABG pO2 ABG HCO3 ABG Total CO2 ABG O2 Saturation Sodium 136 L Chloride BUN 31 H Glucose 314 H POC Glucose (mg/dL) 327 H Calcium 7.9 L Total Bilirubin AST ALT Troponin I Total Protein Albumin 06/26/21 06/26/21 06/26/21 10:05 11:52 18:04 WBC RBC Hgb Hct MCHC RDW Neutrophils # Monocytes # APTT D-Dimer ABG pH ABG pCO2 ABG pO2 ABG HCO3 ABG Total CO2 ABG O2 Saturation Sodium Chloride BUN Glucose POC Glucose (mg/dL) 274 H 266 H 166 H Calcium Total Bilirubin AST ALT Troponin I Total Protein Albumin 06/26/21 06/27/21 06/27/21 23:40 04:06 04:12 WBC 13.8 H RBC 3.55 L Hgb 10.4 L Hct 32.0 L MCHC RDW 15.6 H Neutrophils # 11.1 H Monocytes # APTT D-Dimer ABG pH ABG pCO2 47 H ABG pO2 77 L ABG HCO3 28 H ABG Total CO2 30 H ABG O2 Saturation Sodium Chloride BUN Glucose POC Glucose (mg/dL) 112 H Calcium Total Bilirubin AST ALT Troponin I Total Protein Albumin 06/27/21 06/27/21 06/27/21 04:12 05:33 12:15 WBC RBC Hgb Hct MCHC RDW Neutrophils # Monocytes # APTT D-Dimer ABG pH ABG pCO2 ABG pO2 ABG HCO3 ABG Total CO2 ABG O2 Saturation Sodium Chloride BUN 31 H Glucose 123 H POC Glucose (mg/dL) 125 H 122 H Calcium 8.0 L Total Bilirubin 0.1 L AST ALT 35 H Troponin I Total Protein 5.3 L Albumin 2.8 L 06/27/21 06/27/21 06/28/21 17:50 23:38 04:23 WBC RBC Hgb Hct MCHC RDW Neutrophils # Monocytes # APTT D-Dimer ABG pH ABG pCO2 50 H ABG pO2 ABG HCO3 28 H ABG Total CO2 29 H ABG O2 Saturation 97.6 H Sodium Chloride BUN Glucose POC Glucose (mg/dL) 132 H 158 H Calcium Total Bilirubin AST ALT Troponin I Total Protein Albumin 06/28/21 06/28/21 06/28/21 04:35 04:35 06:15 WBC 13.8 H RBC 3.46 L Hgb 10.1 L Hct 31.2 L MCHC RDW 15.7 H Neutrophils # 10.4 H Monocytes # APTT D-Dimer ABG pH ABG pCO2 ABG pO2 ABG HCO3 ABG Total CO2 ABG O2 Saturation Sodium Chloride 109 H BUN 29 H Glucose 123 H POC Glucose (mg/dL) 129 H Calcium Total Bilirubin AST ALT Troponin I Total Protein Albumin Assessment and Plan Assessment: * Status post cardiac arrest with fairly prolonged downtime. However patient is showing meaningful clinical response. She did wake up to calling her name, made eye contact, moved her gaze and head to either side on calling her name. Also begun her feet appropriately. This favors a good prognosis. * Acute hypoxic respiratory failure secondary to above. * Diabetes * Hyperlipidemia Plan: * Although patient had fairly prolonged downtime, however she is showing significant meaningful clinical response. This indicates a favorable prognosis. Still need to continue to follow closely from neurology perspect whitley. * EEG was performed, which revealed background slowing of moderate to severe degree, suggestive of encephalopathy. No epileptiform activity was seen. * 2-D echo showed severe concentric LVH. EF between 55-60%. Aortic valve is trileaflet and is mildly thickened. * CT head showed no acute intracranial hemorrhage or midline shift. There is mild to moderate diffuse age-related cerebral atrophy and mild chronic small vessel ischemic change. * Tried to contact the family, but they were out for lunch. Informed the nurse to contact us if family has any questions. * Neurology will continue to follow. Dr. Briceno Will resume neurology service in the morning.
[2021-06-28 15:43] LABS: ABG Base Excess 3.9 mmol/L; ABG HCO3 29 mmol/L (21-25); ABG PCO2 49 mmHg (35-45); ABG PH 7.38 (7.35-7.45); ABG PO2 88 mmHg (83-108); ABG TCO2 31 mmol/L (19-24)
[2021-06-28 15:45] LABS: Allen Test Performed? no
[2021-06-28 18:08] LABS: Glucose,Whole Blood 122 mg/dL (75-99)
[2021-06-28 21:10] LABS: Glucose,Whole Blood 137 mg/dL (75-99)
[2021-06-28] MEDS: LORazepam 2 MG/ML INJ IV PRN (22:15)
[2021-06-29] MEDS: SODIUM CHLORIDE 0.9% 1,000 ML IV SCH (00:04)
[2021-06-29 00:08] LABS: Glucose,Whole Blood 137 mg/dL (75-99)
[2021-06-29] MEDS: INSULIN ASPART (NovoLOG) 100 UNIT/ML VIAL SQ SCH ×4 (00:09→19:04)
[2021-06-29] MEDS: DEXMEDETOMIDINE/0.9% NACL(PMX) 400 MCG in EMPTY BAG 1 BAG IV SCH ×2 (04:00→22:02)
[2021-06-29] MEDS: PIPERACILLIN-TAZOBACTAM 3.375 GM in SODIUM CHLORIDE 0.9% 100 ML IVPB SCH ×3 (04:07→19:52)
[2021-06-29] MEDS: LORazepam 2 MG/ML INJ IV PRN (04:14)
[2021-06-29 05:20] LABS: Basophils % (A) 0 %; Eosinophils # (A) 0.2 k/uL (0-0.7); Eosinophils % (A) 2 %; HCT 29.8 % (34.0-46.0); HGB 9.8 gm/dL (11.4-16.0); Hypochromasia Slight; Lymphocytes # (A) 1.6 k/uL (1.0-4.8); Lymphocytes % (A) 15 %; MCHC 32.8 g/dL (31.0-37.0); MCV 91.4 fL (80.0-100.0); Mean Platelet Volume 9.1; Monocytes # (A) 0.8 k/uL (0-1.0); Monocytes % (A) 8 %; Neutrophils # (A) 7.9 k/uL (1.3-7.7); Neutrophils % (A) 73 %; Platelet Count 208 k/uL (150-450); RBC 3.26 m/uL (3.80-5.40); RDW 14.9 % (11.5-15.5); WBC 10.7 k/uL (3.8-10.6)
[2021-06-29 06:02] LABS: Albumin 2.7 g/dL (3.5-5.0); Calcium 8.8 mg/dL (8.4-10.2); Total Bilirubin 0.8 mg/dL (0.2-1.3); Total Protein 5.3 g/dL (6.3-8.2)
[2021-06-29 06:21] LABS: Glucose,Whole Blood 162 mg/dL (75-99)
[2021-06-29] MEDS: INSULIN DETEMIR (LEVEMIR) 100 UNIT/ML SYR SQ SCH ×2 (06:22→21:00)
[2021-06-29] MEDS ORDERED: POTASSIUM BICARBONATE/CIT AC 20 MEQ TABLET.EFF PO ONE (06:25)
--- NOTE | 2021-06-29 06:26 | XR ---
EXAMINATION TYPE: XR chest 1V portable DATE OF EXAM: 06/29/2021 CLINICAL HISTORY: Difficulty breathing progress study. TECHNIQUE: Single AP portable semiupright view of the chest is obtained. COMPARISON: Chest x-ray from one day earlier and older studies. FINDINGS: Interval extubation with removal of endotracheal tube. Stable appearing oral gastric tube and left internal jugular central venous catheter. Persistent mild cardiomegaly. Increasing right basilar opacity noted. Left lung is clear. Osseous str uctures are intact. IMPRESSION: Interval extubation. Worsening right basilar acute infiltrate and/or atelectasis noted.
[2021-06-29] MEDS: ENOXAPARIN 40 MG/0.4 ML SYRINGE SQ SCH (09:05)
[2021-06-29] MEDS: METOPROLOL TARTRATE 25 MG TAB PO SCH ×2 (09:05→21:00)
[2021-06-29] MEDS: ASPIRIN 81 MG PO SCH (09:05)
[2021-06-29] MEDS: AMIODARONE 200 MG TAB PO SCH ×2 (09:05→21:00)
[2021-06-29] MEDS: ATORVASTATIN 40 MG TAB PO SCH (09:05)
--- NOTE | 2021-06-29 10:03 | P.PN ---
Subjective Progress Note Date: 06/27/21 Principal diagnosis: Acute cardiac arrest with ventricular fibrillation as per EMS Patient is a 66-year-old female with a known history of diabetes type 2 currently insulin-dependent, right diabetic heel ulcer with MRSA was brought to hospital by EMS after she had cardiac arrest. According to the family patient was sitting in the chair and suddenly went down and family started resuscitation with CPR. Apparently family did CPR for about 8 minutes prior to that. EMS was called and she was found to be in ventricular fibrillation. Patient was shocked once and then she went into PEA. She underwent CPR for about 15 minutes by EMS with return spontaneous circulation. Patient was brought to the ER where she was intubated. Initial vitals blood pressure was 96/50 pulse 96 and respiration 15 and pulse ox 94% on 9% nonrebreather. Chest x-ray showed diffuse increased lung markings in the right lung. Correlate for atypical pulmonary edema and pneumonia. CT head showed no acute intracranial hemorrhage or midline shift. There is mild to moderate diffuse age-related atrophy and mild chronic small vessel ischemic changes noted. CT angiogram showed no evidence of pulmonary embolism. Bilateral multifocal areas of groundglass opacity could reflect edema and/or infiltrates greatest in the upper versus lower lungs and greatest in the right lung. Correlate clinically to exclude COVID-19 infection. Laboratory data showed WBC 23.4 hemoglobin 13.7 and platelets of 234 D-dimer is greater than 34 BUN 20 creatinine 0.99 sodium 137 potassium 4.4 blood sugar is 222, AST 125 ALT 53 and alk phos 117, troponin 0 0.081 and proBNP 339 Patient was seen by cardiology and was taken to cardiac catheterization due to ventricular fibrillation as per EMS and to rule out cardiac etiology. 06/26/2021 Patient was admitted to the hospital status post cardiac arrest and was found to have V. tach. Patient remained intubated and sedated. Patient is being continued amiodarone drip which is being changed to by mouth. Started on oral tube feedings. Patient is status post cardiac catheterization showed mild obstructive disease involving the mid LAD. Right dominance. Normal left ventricular end-diastolic pressure. 2D echocardiogram showed ejection fraction 55 to 60%. Moderate mitral stenosis, moderate pulmonary hypertension with RVSP 54.3, IVC is dilated with no significant inspiratory collapse which is consistent with estimated right atrial pressure of greater than 20 mmHg. Chest x-ray today showed improved aeration of the upper lobes with mild persistent left lower lobe atelectasis. Correlate and follow-up. Laboratory showed WBC trending down to 14.2 hemoglobin 11.8 and platelets 240, BUN 31 creatinine 1.01 and blood sugar is 314 Patient is being continued antibiotics in the form of Zosyn. Continue with insulin sliding scale and Levemir was added. Patient is Levemir 38 units twice daily at home. Pulmonary and cardiology is on board. 99 Patient is currently on mechanical ventilator. Patient had sedation holiday yesterday but became tachypneic and agitated and was started back on assist control. On sedation now. Patient withdraws with painful stimuli. Chest x-ray showed interstitial changes and cardiomegaly and mild pulmonary vessel congestion. Currently on normal saline at 75 mL per hour. Continued on antibiotics in the form of Zosyn. 2-D echocardiogram report as above. Patient has been afebrile. Tolerating tube feedings. Laboratory data showed WBC trending down to 30.8, hemoglobin 10.4 Sodium 137 potassium 4.1 BUN 31 creatinine 0.9. Pulmonary and neurology on board. Current medications reviewed. Objective - Vital Signs Vital signs: Vital Signs Temp 99.1 F 06/27/21 16:00 Pulse 60 06/27/21 16:00 Resp 28 H 06/27/21 16:00 BP 116/63 06/26/21 21:00 Pulse Ox 98 06/27/21 16:00 Intake & Output 06/26/21 06/27/21 06/27/21 18:59 06:59 18:59 Intake Total 1225.000 920.851 587.407 Output Total 810 630 535 Balance 415.000 290.851 52.407 Weight 124.3 kg 123.6 kg 123.6 kg Intake: IV 1025 750 570 Piperacillin-Tazobactam 3 125 .375 gm In Sodium Chloride 0.9% 100 ml @ 25 mls/hr IVPB Q8H [facility] Rx#: [id number] Sodium Chloride 0.9% 1, 900 750 570 000 ml @ 20 mls/hr IV . Q24H [facility] Rx#:[id number] Intake, IV Titration 200.000 170.851 17.407 Amount Dexmedetomidine/0.9% NaCl 17.407 (Pmx) 400 mcg In Empty Bag 1 bag @ Titrate IV . Q0M [facility] Rx#:[id number] propofoL 1,000 mg In 200.000 170.851 Empty Bag 1 bag @ Titrate IV .Q0M [facility] Rx#: [id number] Output: Urine 810 630 535 Other: Voiding Method Indwelling Catheter Indwelling Catheter Indwelling Catheter ABP, PAP, CO, CI - Last Documented Arterial Blood Pressure 117/51 - Exam PHYSICAL EXAMINATION: Patient is . Currently intubated and on mechanical ventilation..obese.. HEENT: Normocephalic. Neck is supple. Pupils reactive. Nostrils clear. Oral cavity is moist. Neck reveals no JVD, carotid bruits, or thyromegaly. CHEST EXAMINATION: Trachea is central. Symmetrical expansion. Bibasilar diminished sounds on basilar crackles. CARDIAC: Normal S1, S2 with no gallops. No murmurs ABDOMEN: Soft. Bowel sounds normal. No organomegaly. No abdominal bruits. Extremities: reveal no edema. No clubbing or cyanosis Neurologically . Currently intubated and on mechanical ventilation... No gross focal deficits noted Skin: No rash or skin lesions. Right heel ulcer with clean base. No purulent drainage noted. Psychiatric: could not be assessed at this time. Musculoskeletal: No joint swelling or deformity. Normal range of motion. - Labs CBC & Chem 7: 06/29/21 05:05 06/29/21 05:05 Labs: Abnormal Lab Results - Last 24 Hours (Table) 06/26/21 06/26/21 06/27/21 Range/Units 18:04 23:40 04:06 WBC (3.8-10.6) k/uL RBC (3.80-5.40) m/uL Hgb (11.4-16.0) gm/dL Hct (34.0-46.0) % RDW (11.5-15.5) % Neutrophils # (1.3-7.7) k/uL ABG pCO2 47 H (35-45) mmHg ABG pO2 77 L (83-108) mmHg ABG HCO3 28 H (21-25) mmol/L ABG Total CO2 30 H (19-24) mmol/L BUN (7-17) mg/dL Glucose (74-99) mg/dL POC Glucose (mg/dL) 166 H 112 H (75-99) mg/dL Calcium (8.4-10.2) mg/dL Total Bilirubin (0.2-1.3) mg/dL ALT (4-34) U/L Total Protein (6.3-8.2) g/dL Albumin (3.5-5.0) g/dL 06/27/21 06/27/21 06/27/21 Range/Units 04:12 04:12 05:33 WBC 13.8 H (3.8-10.6) k/uL RBC 3.55 L (3.80-5.40) m/uL Hgb 10.4 L (11.4-16.0) gm/dL Hct 32.0 L (34.0-46.0) % RDW 15.6 H (11.5-15.5) % Neutrophils # 11.1 H (1.3-7.7) k/uL ABG pCO2 (35-45) mmHg ABG pO2 (83-108) mmHg ABG HCO3 (21-25) mmol/L ABG Total CO2 (19-24) mmol/L BUN 31 H (7-17) mg/dL Glucose 123 H (74-99) mg/dL POC Glucose (mg/dL) 125 H (75-99) mg/dL Calcium 8.0 L (8.4-10.2) mg/dL Total Bilirubin 0.1 L (0.2-1.3) mg/dL ALT 35 H (4-34) U/L Total Protein 5.3 L (6.3-8.2) g/dL Albumin 2.8 L (3.5-5.0) g/dL 06/27/21 Range/Units 12:15 WBC (3.8-10.6) k/uL RBC (3.80-5.40) m/uL Hgb (11.4-16.0) gm/dL Hct (34.0-46.0) % RDW (11.5-15.5) % Neutrophils # (1.3-7.7) k/uL ABG pCO2 (35-45) mmHg ABG pO2 (83-108) mmHg ABG HCO3 (21-25) mmol/L ABG Total CO2 (19-24) mmol/L BUN (7-17) mg/dL Glucose (74-99) mg/dL POC Glucose (mg/dL) 122 H (75-99) mg/dL Calcium (8.4-10.2) mg/dL Total Bilirubin (0.2-1.3) mg/dL ALT (4-34) U/L Total Protein (6.3-8.2) g/dL Albumin (3.5-5.0) g/dL Microbiology - Last 24 Hours (Table) 06/25/21 15:23 Gram Stain - Final Sputum Sputum Culture - Final 06/25/21 15:33 Blood Culture - Preliminary Blood No Growth after 24 hours 06/25/21 15:52 Blood Culture - Preliminary Blood No Growth after 24 hours Assessment and Plan Assessment: Acute cardiac arrest with ventricular fibrillation as per EMS.Downtime approximately 25 to 30 minutes. Acute hypoxic respiratory failure Secondary to above. Possible right lower lobe aspiration pneumonia. Rule out COVID-19 infection Elevated D-dimer level with no evidence of PE as per CTA Diabetes type 2 insulin-dependent History of smoking Morbid obesity BMI 42.4 Right heel Diabetic foot ulcer with clean base. No purulent drainage noted. DVT prophylaxis Plan: Patient was intubated and on mechanical ventilator in the ER.Patient remained mechanical ventilator. Sedation holiday yesterday but patient became agitated and started back on assist control.. Status post cardiac catheterization showed mild CAD. Amiodarone changed to by mouth. Patient is on tube feedings. Continued on aspirin, statins and beta-blockers were added. Continue with insulin sliding scale and insulin regimen. Antibiotics in the form of Zosyn. Cultures have been negative so far. Neurology is following. Getting EEG. CT head is negative.. Continue to follow closely. Time with Patient: Greater than 30
--- NOTE | 2021-06-29 10:05 | P.PN ---
Subjective Progress Note Date: 06/28/21 Principal diagnosis: Acute cardiac arrest with ventricular fibrillation as per EMS Patient is a 66-year-old female with a known history of diabetes type 2 currently insulin-dependent, right diabetic heel ulcer with MRSA was brought to hospital by EMS after she had cardiac arrest. According to the family patient was sitting in the chair and suddenly went down and family started resuscitation with CPR. Apparently family did CPR for about 8 minutes prior to that. EMS was called and she was found to be in ventricular fibrillation. Patient was shocked once and then she went into PEA. She underwent CPR for about 15 minutes by EMS with return spontaneous circulation. Patient was brought to the ER where she was intubated. Initial vitals blood pressure was 96/50 pulse 96 and respiration 15 and pulse ox 94% on 9% nonrebreather. Chest x-ray showed diffuse increased lung markings in the right lung. Correlate for atypical pulmonary edema and pneumonia. CT head showed no acute intracranial hemorrhage or midline shift. There is mild to moderate diffuse age-related atrophy and mild chronic small vessel ischemic changes noted. CT angiogram showed no evidence of pulmonary embolism. Bilateral multifocal areas of groundglass opacity could reflect edema and/or infiltrates greatest in the upper versus lower lungs and greatest in the right lung. Correlate clinically to exclude COVID-19 infection. Laboratory data showed WBC 23.4 hemoglobin 13.7 and platelets of 234 D-dimer is greater than 34 BUN 20 creatinine 0.99 sodium 137 potassium 4.4 blood sugar is 222, AST 125 ALT 53 and alk phos 117, troponin 0 0.081 and proBNP 339 Patient was seen by cardiology and was taken to cardiac catheterization due to ventricular fibrillation as per EMS and to rule out cardiac etiology. 06/26/2021 Patient was admitted to the hospital status post cardiac arrest and was found to have V. tach. Patient remained intubated and sedated. Patient is being continued amiodarone drip which is being changed to by mouth. Started on oral tube feedings. Patient is status post cardiac catheterization showed mild obstructive disease involving the mid LAD. Right dominance. Normal left ventricular end-diastolic pressure. 2D echocardiogram showed ejection fraction 55 to 60%. Moderate mitral stenosis, moderate pulmonary hypertension with RVSP 54.3, IVC is dilated with no significant inspiratory collapse which is consistent with estimated right atrial pressure of greater than 20 mmHg. Chest x-ray today showed improved aeration of the upper lobes with mild persistent left lower lobe atelectasis. Correlate and follow-up. Laboratory showed WBC trending down to 14.2 hemoglobin 11.8 and platelets 240, BUN 31 creatinine 1.01 and blood sugar is 314 Patient is being continued antibiotics in the form of Zosyn. Continue with insulin sliding scale and Levemir was added. Patient is Levemir 38 units twice daily at home. Pulmonary and cardiology is on board. [id number] Patient is currently on mechanical ventilator. Patient had sedation holiday yesterday but became tachypneic and agitated and was started back on assist control. On sedation now. Patient withdraws with painful stimuli. Chest x-ray showed interstitial changes and cardiomegaly and mild pulmonary vessel congestion. Currently on normal saline at 75 mL per hour. Continued on antibiotics in the form of Zosyn. 2-D echocardiogram report as above. Patient has been afebrile. Tolerating tube feedings. Laboratory data showed WBC trending down to 30.8, hemoglobin 10.4 Sodium 137 potassium 4.1 BUN 31 creatinine 0.9. Pulmonary and neurology on board. 06/28/2021 Patient is on mechanical ventilator. Off sedation. Patient able to blink her eyes sometimes. Not responding to verbal stimulus. On assist control 400 FiO2 40%. PEEP 5. Off pressor support. Patient has been afebrile. Chest x-ray showed Stable portable chest. Laboratory data showed WBC 13.8 hemoglobin 10.1 BUN 29 creatinine 0.88, neurology and pulmonary is on board. Current medications reviewed. Objective - Vital Signs Vital signs: Vital Signs Temp 98.2 F 06/28/21 16:00 Pulse 58 L 06/28/21 19:00 Resp 24 06/28/21 19:00 BP 116/63 06/27/21 23:00 Pulse Ox 99 06/28/21 19:00 Intake & Output 06/28/21 06/28/21 06/29/21 06:59 18:59 06:59 Intake Total 672.662 494.732 40 Output Total 670 660 Balance 2.662 -165.268 40 Weight 122.6 kg 122.6 kg Intake: IV 435 240 20 Piperacillin-Tazobactam 3 75 .375 gm In Sodium Chloride 0.9% 100 ml @ 25 mls/hr IVPB Q8H [facility] Rx#: [id number] Sodium Chloride 0.9% 1, 360 240 20 000 ml @ 20 mls/hr IV . Q24H [facility] Rx#:[id number] Intake, IV Titration 177.662 94.732 Amount Dexmedetomidine/0.9% NaCl 177.662 (Pmx) 400 mcg In Empty Bag 1 bag @ Titrate IV . Q0M [facility] Rx#:[id number] Dexmedetomidine/0.9% NaCl 43.932 (Pmx) 400 mcg In Empty Bag 1 bag @ Titrate IV . Q0M [facility] Rx#:[id number] propofoL 1,000 mg In 50.8 Empty Bag 1 bag @ Titrate IV .Q0M [facility] Rx#: [id number] Tube Feeding 130 20 Other 60 30 Output: Urine 670 660 Other: Voiding Method Indwelling Catheter Indwelling Catheter ABP, PAP, CO, CI - Last Documented Arterial Blood Pressure 134/50 - Exam PHYSICAL EXAMINATION: Patient is . Currently intubated and on mechanical ventilation..obese.. HEENT: Normocephalic. Neck is supple. Pupils reactive. Nostrils clear. Oral cavity is moist. Neck reveals no JVD, carotid bruits, or thyromegaly. CHEST EXAMINATION: Trachea is central. Symmetrical expansion. Bibasilar diminished sounds on basilar crackles. CARDIAC: Normal S1, S2 with no gallops. No murmurs ABDOMEN: Soft. Bowel sounds normal. No organomegaly. No abdominal bruits. Extremities: reveal no edema. No clubbing or cyanosis Neurologically . Currently intubated and on mechanical ventilation... No gross focal deficits noted Skin: No rash or skin lesions. Right heel ulcer with clean base. No purulent drainage noted. Psychiatric: could not be assessed at this time. Musculoskeletal: No joint swelling or deformity. Normal range of motion. - Labs CBC & Chem 7: 06/29/21 05:05 06/29/21 05:05 Labs: Abnormal Lab Results - Last 24 Hours (Table) 06/27/21 06/28/21 06/28/21 Range/Units 23:38 04:23 04:35 WBC (3.8-10.6) k/uL RBC (3.80-5.40) m/uL Hgb (11.4-16.0) gm/dL Hct (34.0-46.0) % RDW (11.5-15.5) % Neutrophils # (1.3-7.7) k/uL ABG pCO2 50 H (35-45) mmHg ABG HCO3 28 H (21-25) mmol/L ABG Total CO2 29 H (19-24) mmol/L ABG O2 Saturation 97.6 H (94-97) % Chloride 109 H (98-107) mmol/L BUN 29 H (7-17) mg/dL Glucose 123 H (74-99) mg/dL POC Glucose (mg/dL) 158 H (75-99) mg/dL 06/28/21 06/28/21 06/28/21 Range/Units 04:35 06:15 12:05 WBC 13.8 H (3.8-10.6) k/uL RBC 3.46 L (3.80-5.40) m/uL Hgb 10.1 L (11.4-16.0) gm/dL Hct 31.2 L (34.0-46.0) % RDW 15.7 H (11.5-15.5) % Neutrophils # 10.4 H (1.3-7.7) k/uL ABG pCO2 (35-45) mmHg ABG HCO3 (21-25) mmol/L ABG Total CO2 (19-24) mmol/L ABG O2 Saturation (94-97) % Chloride (98-107) mmol/L BUN (7-17) mg/dL Glucose (74-99) mg/dL POC Glucose (mg/dL) 129 H 107 H (75-99) mg/dL 06/28/21 06/28/21 Range/Units 15:37 18:07 WBC (3.8-10.6) k/uL RBC (3.80-5.40) m/uL Hgb (11.4-16.0) gm/dL Hct (34.0-46.0) % RDW (11.5-15.5) % Neutrophils # (1.3-7.7) k/uL ABG pCO2 49 H (35-45) mmHg ABG HCO3 29 H (21-25) mmol/L ABG Total CO2 31 H (19-24) mmol/L ABG O2 Saturation (94-97) % Chloride (98-107) mmol/L BUN (7-17) mg/dL Glucose (74-99) mg/dL POC Glucose (mg/dL) 122 H (75-99) mg/dL Microbiology - Last 24 Hours (Table) 06/25/21 15:33 Blood Culture - Preliminary Blood No Growth after 72 hours 06/25/21 15:52 Blood Culture - Preliminary Blood No Growth after 72 hours Assessment and Plan Assessment: Acute cardiac arrest with ventricular fibrillation as per EMS.Downtime approximately 25 to 30 minutes. Acute hypoxic respiratory failure Secondary to above. Possible right lower lobe aspiration pneumonia. Rule out COVID-19 infection Elevated D-dimer level with no evidence of PE as per CTA Diabetes type 2 insulin-dependent History of smoking Morbid obesity BMI 42.4 Right heel Diabetic foot ulcer with clean base. No purulent drainage noted. DVT prophylaxis Plan: Patient was intubated and on mechanical ventilator in the ER.Patient remained mechanical ventilator. Sedation holiday yesterday but patient became agitated and started back on assist control.. Status post cardiac catheterization showed mild CAD. Amiodarone changed to by mouth. Patient is on tube feedings. Continued on aspirin, statins and beta-blockers were added. Continue with insulin sliding scale and insulin regimen. Antibiotics in the form of Zosyn. Cultures have been negative so far. Neurology is following. Getting EEG. CT head is negative.. Continue to follow closely. Time with Patient: Greater than 30
--- NOTE | 2021-06-29 10:32 | PN ---
PROGRESS NOTE Ms. Arreguin is a 66-year-old female with a known history of diabetes and history of tobacco use, who presented with an acute cardiac arrest with reported ventricular fibrillation by EMS status post cardioversion. Subsequently underwent cardiac catheterization revealed no evidence of obstructive coronary artery disease and left ventricular systolic function was normal. She was extubated yesterday. She is awake, following commands, but nonverbal at this time. Hemodynamically, she is stable. She continues to be in sinus mechanism without any evidence of atrial fibrillation or ventricular tachyarrhythmia. She continues on amiodarone 200 mg twice a day, aspirin once a day, Lipitor 40 mg daily, metoprolol tartrate 25 mg twice a day. PHYSICAL EXAMINATION: Blood pressure 129/50 with a heart rate in the 60s. Awake following commands. LUNGS: Clear to auscultation. Heart is regular rate and rhythm S1, S2. No S3. No gallop appreciated. ABDOMEN: Soft, nontender. EXTREMITIES: Dressing on the right foot. No significant edema. LAB DATA: Hemoglobin 9.8, BUN and creatinine is 30 and 0.82. IMPRESSION: 1. Status post cardiac arrest with reported ventricular fibrillation, etiology unclear. Patient has no evidence of significant obstructive disease. No evidence of cardiomyopathy. 2. Anoxic encephalopathy, improving. 3. Respiratory failure resolved. 4. Diabetes mellitus. 5. Chronic tobacco use. RECOMMENDATIONS: We will continue present therapy. Continue to increase level of activity, follow her neurological status and depending on her progress, further recommendations will be made. She will be further evaluated down the road regarding the need to undergo EP study to evaluate the etiology of her arrhythmia and possible the need to undergo an ICD implantation. MMODL / IJN: [id number] /
[2021-06-29 12:24] LABS: Glucose,Whole Blood 183 mg/dL (75-99)
--- NOTE | 2021-06-29 13:29 | P.PN ---
Subjective Progress Note Date: 06/29/21 Principal diagnosis: Cardiac arrest and anoxic brain injury Today's evaluation on 06/27/2021 patient seen in the intensive care unit, yesterday she was given sedation holiday during which she became very anxious, agitated, however she remained nonpurposeful, she became very tachypneic and noncompliant with the ventilator, she was back on assist control mode of ventilation overnight. This morning she remains sedated, intubated on assist control mode of ventilation with a rate of 20, tidal emesis 400, FiO2 of 40% and PEEP of 5. This morning's blood gas shows pO2 of 77, pCO2 of 47, and PEEP of 5, this was done on the above mentioned settings. A chest x-ray shows cardiom egaly, and interstitial changes, mild pulmonary vascular congestion, with interval clearing of the previous opacity at the left lung base, and increased mild patchy density at the right base. Patient remains on Zosyn for empiric antibiotic coverage, she has had no fever or chills overnight, hemodynamically she is much more stable, she has been off pressors since yesterday, she is currently on 0.9 within a rate of 75 ML per hour, Diprivan and is at 25 mics per kilo per minute, and note that the patient has only required minimal sedation, and her sedation has been at 25 mics per kilo per minute of the program all along. Her pulse ox is 96%. Is in sinus mechanism with a rate of 63, no report ed arrhythmias overnight, cardiology is following, patient is status post cardiac catheterization, with no evidence of acute ischemic coronary artery disease, and patient is on medical therapy per cardiology recommendations. Her troponins peaked at 0.473 with a second troponin, her last set of troponins were yesterday at 5:00 in the morning with a troponin of 0.435. Echocardiogram has been completed showing preserved LV function with EF of 55-60%, severe concentric LVH, moderate mitral stenosis, mild tricuspid regurgitation, moderate pulmonary hypertension with right-sided pressure of 54.3 mmHg. There was a small generalized pericardial effusion present. VC was dilated with no significant inspiratory collapse consistent with estimated right-sided atrial pressure of greater than 20 mg of mercury. Neurologically patient is quite sedated on 25 mics of the prevent, she withdraws to painful stimuli, she does move all 4 extremities, she breathes over the vent, does have a positive gag, negative Babinski. Today's labs have been reviewed, white blood cell count is improving and is down to 13.8, hemoglobin is 10.4. No Other acute events overnight. On 06/28/2021 patient is seen in follow-up in the intensive care unit, she remains sedated and intubated on mechanical ventilator, currently on assist control mode of ventilation with a rate of 20, tidal volume 400, FiO2 of 40% and PEEP of 5, this morning's blood gas shows pO2 of 97, pCO2 50, pH is 7.35, and this was done on the above mentioned settings. She is currently on Diprivan at 15 mics per kilo per minute, and 0.9 normal saline at a rate of 10 ML per hour, no other drips. No vasopressor support, she is hemodynamically stable, she is in sinus mechanism with a controlled rate. Today's chest x-ray has been reviewed showing mild right infrahilar patchy density, which is stable in appearance. Today's labs have been reviewed, her white count is stable at 13.8, overall did improve since admission, hgb is 10.1, platelet count is 242, sodium is 142, potassium is 4.3, chloride is 109, BUN is 29, creatinine 0.88. 2 feed ings have not been started yet, however will be started with vital AF formula at a rate of 20 with a goal of 60 ML per hour with standard water flushes. Yesterday patient was quiet deeply sedated, we held her sedation most of the day, she did go on Precedex at a low dose, and patient never actually appropriately woke up and followed commands, and in the evening she became quite restless, dyssyncronous with the ventilator, and Precedex was discontinued and she was placed back on Diprivan overnight at a low dose. This morning she does open her eyes to voice, she makes brief eye contact, she drifts back to sleep, he is not following commands yet, however her level of consciousness is improved , she is less sedated. Vital signs have been stable, she's been afebrile, blood pressure has been stable, no arrhythmias overnight. Output has been adequate in the order of 40-100 ML per hour. No other acute events overnight. We'll proceed with another sedation holiday today. Reevaluated today on 06/29/2021, patient remains in the ICU, she was extubated yesterday, she is on BiPAP 09/23 and 40% FiO2. I will transition the patient to a nasal cannula and see if tolerated. I will discontinue her Precedex today, she is presently on 0.2, patient is awake, she does follow simple instructions like closing eyes, sticking out tongue, wiggling toes, squeezing hands, remains nonverbal. Dramatic improvement in her neurological status today compared to yesterday. Chest x-ray showing minimal atelectasis especially at the right base. Patient was seen by neurology yesterday, and she was noted to have some meaningful clinical response. Hence this is favoring a good prognosis in spite of the acute anoxic brain injury. ABC today is relatively unremarkable, basic metabolic profile is normal, renal profile is normal. A shunt remains on amiodarone, aspirin, atorvastatin, Lovenox, insulin, metoprolol, and she is empirically on Zosyn. Objective - Vital Signs Vital signs: Vital Signs Temp 99.1 F 06/29/21 12:00 Pulse 63 06/29/21 12:00 Resp 25 H 06/29/21 12:00 BP 146/64 06/29/21 11:00 Pulse Ox 95 06/29/21 12:00 Intake & Output 06/28/21 06/29/21 06/29/21 18:59 06:59 18:59 Intake Total 494.732 739.068 345 Output Total 660 745 265 Balance -165.268 -5.932 80 Weight 122.6 kg 124.1 kg 124.1 kg Intake: IV 240 313 65 A line flush 33 15 Piperacillin-Tazobactam 3 110 .375 gm In Sodium Chloride 0.9% 100 ml @ 25 mls/hr IVPB Q8H [facility] Rx#: [id number] Sodium Chloride 0.9% 1, 240 170 50 000 ml @ 20 mls/hr IV . Q24H [facility] Rx#:[id number] Intake, IV Titration 94.732 46.068 Amount Dexmedetomidine/0.9% NaCl 43.932 46.068 (Pmx) 400 mcg In Empty Bag 1 bag @ Titrate IV . Q0M [facility] Rx#:[id number] propofoL 1,000 mg In 50.8 Empty Bag 1 bag @ Titrate IV .Q0M [facility] Rx#: [id number] Tube Feeding 130 290 190 Other 30 90 90 Output: Urine 660 745 265 Other: Voiding Method Indwelling Catheter Indwelling Catheter Indwelling Catheter ABP, PAP, CO, CI - Last Documented Arterial Blood Pressure 146/53 - Exam Gen.: Reveals 66-year-old female in no distress. On BiPAP, and I plan to transition to a nasal cannula. HEENT: Normocephalic. Neck is supple. Pupils reactive. Nostrils clear. Oral cavity is moist. Dry mucous membranes noted. Neck reveals no JVD, carotid bruits, or thyromegaly. CHEST EXAMINATION: Diminished breath sounds at the bases, no crackles or rhonchi or wheezes. CARDIAC: Normal S1 and S2, no S3 gallop, no murmur. ABDOMEN: Soft. Bowel sounds normal. No organomegaly. No abdominal bruits. Extremities: Clubbing edema or cyanosis. Neurologically . Awake, follows simple instructions, mostly closing eyes, sticking out tongue, squeezing hands, wiggling toes. But nonverbal. Skin: Chronic right heel ulcer is noted otherwise negative. Psychiatric: Depressed mood, blunt affect, seems to be appropriate and following simple instructions Musculoskeletal: No joint swelling or deformity. Normal range of motion. - Labs CBC & Chem 7: 06/29/21 05:05 06/29/21 05:05 Labs: Abnormal Lab Results - Last 24 Hours (Table) 06/28/21 06/28/21 06/28/21 Range/Units 15:37 18:07 21:08 WBC (3.8-10.6) k/uL RBC (3.80-5.40) m/uL Hgb (11.4-16.0) gm/dL Hct (34.0-46.0) % Neutrophils # (1.3-7.7) k/uL ABG pCO2 49 H (35-45) mmHg ABG HCO3 29 H (21-25) mmol/L ABG Total CO2 31 H (19-24) mmol/L Chloride (98-107) mmol/L BUN (7-17) mg/dL Glucose (74-99) mg/dL POC Glucose (mg/dL) 122 H 137 H (75-99) mg/dL Total Protein (6.3-8.2) g/dL Albumin (3.5-5.0) g/dL 06/29/21 06/29/21 06/29/21 Range/Units 00:07 05:05 05:05 WBC 10.7 H (3.8-10.6) k/uL RBC 3.26 L (3.80-5.40) m/uL Hgb 9.8 L (11.4-16.0) gm/dL Hct 29.8 L (34.0-46.0) % Neutrophils # 7.9 H (1.3-7.7) k/uL ABG pCO2 (35-45) mmHg ABG HCO3 (21-25) mmol/L ABG Total CO2 (19-24) mmol/L Chloride 111 H (98-107) mmol/L BUN 30 H (7-17) mg/dL Glucose 159 H (74-99) mg/dL POC Glucose (mg/dL) 137 H (75-99) mg/dL Total Protein 5.3 L (6.3-8.2) g/dL Albumin 2.7 L (3.5-5.0) g/dL 06/29/21 06/29/21 Range/Units 06:18 12:22 WBC (3.8-10.6) k/uL RBC (3.80-5.40) m/uL Hgb (11.4-16.0) gm/dL Hct (34.0-46.0) % Neutrophils # (1.3-7.7) k/uL ABG pCO2 (35-45) mmHg ABG HCO3 (21-25) mmol/L ABG Total CO2 (19-24) mmol/L Chloride (98-107) mmol/L BUN (7-17) mg/dL Glucose (74-99) mg/dL POC Glucose (mg/dL) 162 H 183 H (75-99) mg/dL Total Protein (6.3-8.2) g/dL Albumin (3.5-5.0) g/dL Microbiology - Last 24 Hours (Table) 06/25/21 15:33 Blood Culture - Preliminary Blood No Growth after 72 hours 06/25/21 15:52 Blood Culture - Preliminary Blood No Growth after 72 hours Assessment and Plan Assessment: #1. Acute cardiac arrest. The patient encounter the defibrillator arrest, witnessed, EMS was in the scene and the patient received defibrillation and resuscitation according to the ACLS protocol. The patient has a downtime of more than 20 minutes estimated to be around 20-25 minutes per records. Consider underlying development of anoxic encephalopathy. Echo of the heart showed a preserved LV function with concentric LVH and moderate mitral stenosis and moderate to severe pulmonary hypertension. Consider prolongation of QT as a cause for underlying V. fib arrest. Cardiac catheterization showed nonocclusive coronary artery disease. #2. Acute hypoxic respiratory failure secondary to above. The patient developed diffuse breath and pulmonary infiltrates right more than left and the patient has significant consolidation lung bases right more than left. Consider aspiration. The patient remains on IV Zosyn. There is interval improvement in the bilateral pulmonary infiltrates as noted. Patient was extubated on 06/19, and she tolerated the extubation well so far. #3. Suspect mild anoxic brain injury however her neurological status seems to be significantly better in the last 24 hours. #4. Acute leukocytosis secondary to above, improving, to continues on Zosyn for empiric antibiotic coverage, and cultures remain negative thus far #5. Minimal troponin leak secondary to above. The patient also received CPR #6. Diabetes mellitus. #7. Hyperlipidemia Recommendation: Continue to monitor the patient in the ICU. Discontinue all narcotics and sedatives including Precedex. Transition patient from BiPAP to nasal cannula. Continue Zosyn. Continue to monitor neurologically and cardiac-liao. Continue GI and DVT prophylaxis. Will monitor in the ICU for at least the next 24 hours. Prognosis remains relatively guarded. Again I remember the exact events leading to cardiac arrest is not clear at this point yet. Time with Patient: Less than 30
--- NOTE | 2021-06-29 15:29 | P.PN ---
Subjective Progress Note Date: 06/29/21 Principal diagnosis: Acute cardiac arrest with ventricular fibrillation as per EMS Patient is a 66-year-old female with a known history of diabetes type 2 currently insulin-dependent, right diabetic heel ulcer with MRSA was brought to hospital by EMS after she had cardiac arrest. According to the family patient was sitting in the chair and suddenly went down and family started resuscitation with CPR. Apparently family did CPR for about 8 minutes prior to that. EMS was called and she was found to be in ventricular fibrillation. Patient was shocked once and then she went into PEA. She underwent CPR for about 15 minutes by EMS with return spontaneous circulation. Patient was brought to the ER where she was intubated. Initial vitals blood pressure was 96/50 pulse 96 and respiration 15 and pulse ox 94% on 9% nonrebreather. Chest x-ray showed diffuse increased lung markings in the right lung. Correlate for atypical pulmonary edema and pneumonia. CT head showed no acute intracranial hemorrhage or midline shift. There is mild to moderate diffuse age-related atrophy and mild chronic small vessel ischemic changes noted. CT angiogram showed no evidence of pulmonary embolism. Bilateral multifocal areas of groundglass opacity could reflect edema and/or infiltrates greatest in the upper versus lower lungs and greatest in the right lung. Correlate clinically to exclude COVID-19 infection. Laboratory data showed WBC 23.4 hemoglobin 13.7 and platelets of 234 D-dimer is greater than 34 BUN 20 creatinine 0.99 sodium 137 potassium 4.4 blood sugar is 222, AST 125 ALT 53 and alk phos 117, troponin 0 0.081 and proBNP 339 Patient was seen by cardiology and was taken to cardiac catheterization due to ventricular fibrillation as per EMS and to rule out cardiac etiology. 06/26/2021 Patient was admitted to the hospital status post cardiac arrest and was found to have V. tach. Patient remained intubated and sedated. Patient is being continued amiodarone drip which is being changed to by mouth. Started on oral tube feedings. Patient is status post cardiac catheterization showed mild obstructive disease involving the mid LAD. Right dominance. Normal left ventricular end-diastolic pressure. 2D echocardiogram showed ejection fraction 55 to 60%. Moderate mitral stenosis, moderate pulmonary hypertension with RVSP 54.3, IVC is dilated with no significant inspiratory collapse which is consistent with estimated right atrial pressure of greater than 20 mmHg. Chest x-ray today showed improved aeration of the upper lobes with mild persistent left lower lobe atelectasis. Correlate and follow-up. Laboratory showed WBC trending down to 14.2 hemoglobin 11.8 and platelets 240, BUN 31 creatinine 1.01 and blood sugar is 314 Patient is being continued antibiotics in the form of Zosyn. Continue with insulin sliding scale and Levemir was added. Patient is Levemir 38 units twice daily at home. Pulmonary and cardiology is on board. 9920 Patient is currently on mechanical ventilator. Patient had sedation holiday yesterday but became tachypneic and agitated and was started back on assist control. On sedation now. Patient withdraws with painful stimuli. Chest x-ray showed interstitial changes and cardiomegaly and mild pulmonary vessel congestion. Currently on normal saline at 75 mL per hour. Continued on antibiotics in the form of Zosyn. 2-D echocardiogram report as above. Patient has been afebrile. Tolerating tube feedings. Laboratory data showed WBC trending down to 30.8, hemoglobin 10.4 Sodium 137 potassium 4.1 BUN 31 creatinine 0.9. Pulmonary and neurology on board. 06/28/2021 Patient is on mechanical ventilator. Off sedation. Patient able to blink her eyes sometimes. Not responding to verbal stimulus. On assist control 400 FiO2 40%. PEEP 5. Off pressor support. Patient has been afebrile. Chest x-ray showed Stable portable chest. Laboratory data showed WBC 13.8 hemoglobin 10.1 BUN 29 creatinine 0.88, neurology and pulmonary is on board. 06/29/2021 Patient was extubated today morning. Initially was on BiPAP after extubation and is currently down to oxygen via nasal cannula. Patient is following and instructions with rapid commands. Patient could not speak at this time. Continued on NG tube for nutrition. Patient has been afebrile. Next line chest x-ray showed minimal atelectasis at the right lung base. Laboratory data showed WBC 10.7 hemoglobin 9.8 and platelets 208 sodium 144 potassium 4.0 chloride 111, BUN 30 and creatinine 0.82, blood sugar 159 Current medications reviewed. Active Medications Generic Name Dose Route Start Last Admin Trade Name Freq PRN Reason Stop Dose Admin Amiodarone HCl 200 mg 06/28/21 09:00 06/29/21 09:05 Amiodarone 200 Mg Tab PO 200 mg BID [facility] Administration Aspirin 81 mg 06/26/21 09:00 06/29/21 09:05 Aspirin 81 Mg PO 81 mg DAILY [facility] Administration Atorvastatin Calcium 40 mg 06/26/21 09:00 06/29/21 09:05 Atorvastatin 40 Mg Tab PO 40 mg DAILY [facility] Administration Enoxaparin Sodium 40 mg 06/25/21 19:30 06/29/21 09:05 Enoxaparin 40 Mg/0.4 Ml Syringe SQ 40 mg DAILY [facility] Administration Sodium Chloride 1,000 mls @ 20 mls/hr 06/25/21 17:30 06/29/21 00:04 Saline 0.9% IV 20 mls/hr .Q24H [facility] Administration Piperacillin Sod/Tazobactam 100 mls @ 25 mls/hr 06/25/21 20:00 06/29/21 12:29 Sod 3.375 gm/ Sodium Chloride IVPB 25 mls/hr Q8H [facility] Administration Insulin Aspart 0 unit 06/26/21 06:00 06/29/21 12:28 Insulin Aspart (Novolog) 100 Unit/Ml Vial SQ 3 unit Q6HR [facility] Administration Protocol Insulin Detemir 10 unit 06/26/21 09:15 06/29/21 06:22 Insulin Detemir (Levemir) 100 Unit/Ml Syr SQ 10 unit BID@0700,2100 [facility] Administration Metoprolol Tartrate 25 mg 06/27/21 09:00 06/29/21 09:05 Metoprolol Tartrate 25 Mg Tab PO 25 mg BID [facility] Administration Nitroglycerin 0.4 mg 06/25/21 15:37 Nitroglycerin Sl Tabs 0.4 Mg Tab SUBLINGUAL Q5M PRN Chest Pain Objective - Vital Signs Vital signs: Vital Signs Temp 99.1 F 06/29/21 12:00 Pulse 74 06/29/21 15:00 Resp 20 06/29/21 15:00 BP 146/64 06/29/21 11:00 Pulse Ox 95 06/29/21 15:00 Intake & Output 06/28/21 06/29/21 06/29/21 18:59 06:59 18:59 Intake Total 494.732 739.068 534 Output Total 660 745 415 Balance -165.268 -5.932 119 Weight 122.6 kg 124.1 kg 124.1 kg Intake: IV 240 313 104 A line flush 33 24 Piperacillin-Tazobactam 3 110 .375 gm In Sodium Chloride 0.9% 100 ml @ 25 mls/hr IVPB Q8H [facility] Rx#: [id number] Sodium Chloride 0.9% 1, 240 170 80 000 ml @ 20 mls/hr IV . Q24H [facility] Rx#:[id number] Intake, IV Titration 94.732 46.068 Amount Dexmedetomidine/0.9% NaCl 43.932 46.068 (Pmx) 400 mcg In Empty Bag 1 bag @ Titrate IV . Q0M [facility] Rx#:[id number] propofoL 1,000 mg In 50.8 Empty Bag 1 bag @ Titrate IV .Q0M [facility] Rx#: [id number] Tube Feeding 130 290 310 Other 30 90 120 Output: Urine 660 745 415 Other: Voiding Method Indwelling Catheter Indwelling Catheter Indwelling Catheter ABP, PAP, CO, CI - Last Documented Arterial Blood Pressure 176/59 - Exam PHYSICAL EXAMINATION: Patient is lying in the bed comfortably, no acute distress, awake alert but could not speak... HEENT: Normocephalic. Neck is supple. Pupils reactive. Nostrils clear. Oral cavity is moist. NG tube in place. Neck reveals no JVD, carotid bruits, or thyromegaly. CHEST EXAMINATION: Trachea is central. Symmetrical expansion. Minimal basilar crackles. Lung breen clear to auscultation and percussion. CARDIAC: Normal S1, S2 with no gallops. No murmurs ABDOMEN: Soft. Bowel sounds normal. No organomegaly. No abdominal bruits. Extremities: reveal no edema. No clubbing or cyanosis Neurologically patient is awake alert. Could not communicate.. No gross focal deficits noted Skin: No rash or skin lesions. Psychiatric: Coperative. Could not basis is completely Musculoskeletal: No joint swelling or deformity. - Labs CBC & Chem 7: 06/29/21 05:05 06/29/21 05:05 Labs: Abnormal Lab Results - Last 24 Hours (Table) 06/28/21 06/28/21 06/28/21 Range/Units 15:37 18:07 21:08 WBC (3.8-10.6) k/uL RBC (3.80-5.40) m/uL Hgb (11.4-16.0) gm/dL Hct (34.0-46.0) % Neutrophils # (1.3-7.7) k/uL ABG pCO2 49 H (35-45) mmHg ABG HCO3 29 H (21-25) mmol/L ABG Total CO2 31 H (19-24) mmol/L Chloride (98-107) mmol/L BUN (7-17) mg/dL Glucose (74-99) mg/dL POC Glucose (mg/dL) 122 H 137 H (75-99) mg/dL Total Protein (6.3-8.2) g/dL Albumin (3.5-5.0) g/dL 06/29/21 06/29/21 06/29/21 Range/Units 00:07 05:05 05:05 WBC 10.7 H (3.8-10.6) k/uL RBC 3.26 L (3.80-5.40) m/uL Hgb 9.8 L (11.4-16.0) gm/dL Hct 29.8 L (34.0-46.0) % Neutrophils # 7.9 H (1.3-7.7) k/uL ABG pCO2 (35-45) mmHg ABG HCO3 (21-25) mmol/L ABG Total CO2 (19-24) mmol/L Chloride 111 H (98-107) mmol/L BUN 30 H (7-17) mg/dL Glucose 159 H (74-99) mg/dL POC Glucose (mg/dL) 137 H (75-99) mg/dL Total Protein 5.3 L (6.3-8.2) g/dL Albumin 2.7 L (3.5-5.0) g/dL 06/29/21 06/29/21 Range/Units 06:18 12:22 WBC (3.8-10.6) k/uL RBC (3.80-5.40) m/uL Hgb (11.4-16.0) gm/dL Hct (34.0-46.0) % Neutrophils # (1.3-7.7) k/uL ABG pCO2 (35-45) mmHg ABG HCO3 (21-25) mmol/L ABG Total CO2 (19-24) mmol/L Chloride (98-107) mmol/L BUN (7-17) mg/dL Glucose (74-99) mg/dL POC Glucose (mg/dL) 162 H 183 H (75-99) mg/dL Total Protein (6.3-8.2) g/dL Albumin (3.5-5.0) g/dL Microbiology - Last 24 Hours (Table) 06/25/21 15:33 Blood Culture - Preliminary Blood No Growth after 72 hours 06/25/21 15:52 Blood Culture - Preliminary Blood No Growth after 72 hours Assessment and Plan Assessment: Acute cardiac arrest with ventricular fibrillation as per EMS.Downtime approx imately 25 to 30 minutes. Possible anoxic encephalopathy is being considered. Acute hypoxic respiratory failure Secondary to above. Patient is extubated. Possible right lower lobe aspiration pneumonia. Ruled out COVID-19 infection Elevated D-dimer level with no evidence of PE as per CTA Diabetes type 2 insulin-dependent History of smoking Morbid obesity BMI 42.4 Right heel Diabetic foot ulcer with clean base. No purulent drainage noted. DVT prophylaxis Plan: Patient is currently extubated and on oxygen via nasal cannula. Patient is able to follow commands but still aphasic. Continue on NG tube feeding and speech and swallow service was consulted. Neurology is following. EEG was done.. CT head is negative. Status post cardiac catheterization showed mild CAD. Amiodarone changed to by mouth. Continued on aspirin, statins and beta-blockers were added. Continue with insulin sliding scale and insulin regimen. Antibiotics in the form of Zosyn. Cultures have been negative so far. Continue to follow closely. Time with Patient: Greater than 30
[2021-06-29] MEDS: CLEVIDIPINE BUTYRATE 25 MG in EMPTY BAG 1 BAG IV SCH ×3 (15:58→22:58)
[2021-06-29 18:48] LABS: Glucose,Whole Blood 184 mg/dL (75-99)
[2021-06-29] MEDS ORDERED: LORazepam 2 MG/ML INJ IV STA (20:50)
[2021-06-30 00:10] LABS: Glucose,Whole Blood 246 mg/dL (75-99)
[2021-06-30] MEDS: INSULIN ASPART (NovoLOG) 100 UNIT/ML VIAL SQ SCH ×4 (00:11→17:57)
[2021-06-30] MEDS: SODIUM CHLORIDE 0.9% 1,000 ML IV SCH ×2 (03:05→20:43)
[2021-06-30] MEDS: PIPERACILLIN-TAZOBACTAM 3.375 GM in SODIUM CHLORIDE 0.9% 100 ML IVPB SCH ×3 (03:05→20:14)
[2021-06-30] MEDS: DEXMEDETOMIDINE/0.9% NACL(PMX) 400 MCG in EMPTY BAG 1 BAG IV SCH ×2 (03:53→09:03)
[2021-06-30 06:24] LABS: Glucose,Whole Blood 243 mg/dL (75-99)
--- NOTE | 2021-06-30 07:36 | XR ---
EXAMINATION TYPE: XR chest 1V portable DATE OF EXAM: 06/30/2021 CLINICAL HISTORY: Difficulty breathing progress study. TECHNIQUE: Single AP portable upright view of the chest is obtained. COMPARISON: Chest x-ray from one day earlier hand older studies. Stable appearing orogastric tube and left internal jugular central venous catheter. Persistent mild cardiomegaly. Patchy faint multifocal right-sided opacities and left basilar opacity. Osseous structures are intact. IMPRESSION: Persistent patchy faint right mid lung and bibasilar opacities. Right midlung opacity sli ghtly more prominent. Findings consistent with covid-19 infection.
[2021-06-30] MEDS: INSULIN DETEMIR (LEVEMIR) 100 UNIT/ML SYR SQ SCH ×2 (07:44→20:16)
[2021-06-30 08:01] LABS: Basophils % (A) 0 %; Eosinophils # (A) 0.1 k/uL (0-0.7); Eosinophils % (A) 1 %; HCT 29.6 % (34.0-46.0); HGB 9.5 gm/dL (11.4-16.0); Hypochromasia Slight; Lymphocytes # (A) 1.2 k/uL (1.0-4.8); Lymphocytes % (A) 13 %; MCH 29.6 pg (25.0-35.0); MCV 92.5 fL (80.0-100.0); Monocytes # (A) 0.6 k/uL (0-1.0); Monocytes % (A) 6 %; Neutrophils # (A) 7.3 k/uL (1.3-7.7); Neutrophils % (A) 78 %; Platelet Count 242 k/uL (150-450); RDW 14.9 % (11.5-15.5); WBC 9.4 k/uL (3.8-10.6)
[2021-06-30 08:05] LABS: Calcium 9.1 mg/dL (8.4-10.2); Potassium 4.2 mmol/L (3.5-5.1)
[2021-06-30] MEDS: ASPIRIN 81 MG PO SCH (09:03)
[2021-06-30] MEDS: ATORVASTATIN 40 MG TAB PO SCH (09:03)
[2021-06-30] MEDS: ENOXAPARIN 40 MG/0.4 ML SYRINGE SQ SCH (09:03)
[2021-06-30] MEDS: METOPROLOL TARTRATE 25 MG TAB PO SCH ×2 (09:03→20:16)
[2021-06-30] MEDS: AMIODARONE 200 MG TAB PO SCH ×2 (09:03→20:16)
--- NOTE | 2021-06-30 09:25 | PN ---
PROGRESS NOTE Mrs. Arreguin is a 66-year-old female who presented with cardiopulmonary arrest with ventricular fibrillation cardioversion. She has been extubated. She is on the BiPAP. Hemodynamically, she is stable. She is opening her eyes and following commands. There is no evidence of ventricular ectopic activity. She continues to be at this time on aspirin once a day, Lipitor 40 mg daily, amiodarone 200 mg twice a day. She is on Lovenox, metoprolol tartrate 25 mg twice a day. PHYSICAL EXAMINATION: Blood pressure 132/50 with a heart rate in the 60s. Lungs with mild decrease in breath sounds. No wheezes. Heart regular rate and rhythm, S1, S2. No S3. No rub. Abdomen: Soft, nontender. Positive bowel sounds. No organomegaly. Extremities: No edema. LAB DATA: Lab data revealed BUN and creatinine 38 and 0.86. Potassium 4.2, hemoglobin 9.5. IMPRESSION: 1. Status post cardiac arrest and defibrillation. The patient has no evidence of high- grade stenosis and she has a normal left ventricular systolic function. 2. Respiratory failure, resolved. 3. Anoxic encephalopathy, improving. 4. Diabetes. 5. Chronic tobacco use. RECOMMENDATION: We will continue present therapy and continue to increase her activity depending on her progress. Continue to follow her renal function and depending on her mental status, further recommendations will be made. The patient will need to be evaluated regarding the ventricular ectopic activity and most likely will require a EP study. MMODL / IJN: [id number] / MTDD
[2021-06-30] MEDS ORDERED: HALOPERIDOL LACTATE 5 MG/ML 1 ML VIAL IVP PRN (10:25)
[2021-06-30 11:37] LABS: Glucose,Whole Blood 226 mg/dL (75-99)
--- NOTE | 2021-06-30 13:23 | P.PN ---
Subjective Progress Note Date: 06/30/21 Principal diagnosis: Cardiac arrest and anoxic brain injury Today's evaluation on 06/27/2021 patient seen in the intensive care unit, yesterday she was given sedation holiday during which she became very anxious, agitated, however she remained nonpurposeful, she became very tachypneic and noncompliant with the ventilator, she was back on assist control mode of ventilation overnight. This morning she remains sedated, intubated on assist control mode of ventilation with a rate of 20, tidal emesis 400, FiO2 of 40% and PEEP of 5. This morning's blood gas shows pO2 of 77, pCO2 of 47, and PEEP of 5, this was done on the above mentioned settings. A chest x-ray shows cardiom egaly, and interstitial changes, mild pulmonary vascular congestion, with interval clearing of the previous opacity at the left lung base, and increased mild patchy density at the right base. Patient remains on Zosyn for empiric antibiotic coverage, she has had no fever or chills overnight, hemodynamically she is much more stable, she has been off pressors since yesterday, she is currently on 0.9 within a rate of 75 ML per hour, Diprivan and is at 25 mics per kilo per minute, and note that the patient has only required minimal sedation, and her sedation has been at 25 mics per kilo per minute of the program all along. Her pulse ox is 96%. Is in sinus mechanism with a rate of 63, no report ed arrhythmias overnight, cardiology is following, patient is status post cardiac catheterization, with no evidence of acute ischemic coronary artery disease, and patient is on medical therapy per cardiology recommendations. Her troponins peaked at 0.473 with a second troponin, her last set of troponins were yesterday at 5:00 in the morning with a troponin of 0.435. Echocardiogram has been completed showing preserved LV function with EF of 55-60%, severe concentric LVH, moderate mitral stenosis, mild tricuspid regurgitation, moderate pulmonary hypertension with right-sided pressure of 54.3 mmHg. There was a small generalized pericardial effusion present. VC was dilated with no significant inspiratory collapse consistent with estimated right-sided atrial pressure of greater than 20 mg of mercury. Neurologically patient is quite sedated on 25 mics of the prevent, she withdraws to painful stimuli, she does move all 4 extremities, she breathes over the vent, does have a positive gag, negative Babinski. Today's labs have been reviewed, white blood cell count is improving and is down to 13.8, hemoglobin is 10.4. No Other acute events overnight. On 06/28/2021 patient is seen in follow-up in the intensive care unit, she remains sedated and intubated on mechanical ventilator, currently on assist control mode of ventilation with a rate of 20, tidal volume 400, FiO2 of 40% and PEEP of 5, this morning's blood gas shows pO2 of 97, pCO2 50, pH is 7.35, and this was done on the above mentioned settings. She is currently on Diprivan at 15 mics per kilo per minute, and 0.9 normal saline at a rate of 10 ML per hour, no other drips. No vasopressor support, she is hemodynamically stable, she is in sinus mechanism with a controlled rate. Today's chest x-ray has been reviewed showing mild right infrahilar patchy density, which is stable in appearance. Today's labs have been reviewed, her white count is stable at 13.8, overall did improve since admission, hgb is 10.1, platelet count is 242, sodium is 142, potassium is 4.3, chloride is 109, BUN is 29, creatinine 0.88. 2 feed ings have not been started yet, however will be started with vital AF formula at a rate of 20 with a goal of 60 ML per hour with standard water flushes. Yesterday patient was quiet deeply sedated, we held her sedation most of the day, she did go on Precedex at a low dose, and patient never actually appropriately woke up and followed commands, and in the evening she became quite restless, dyssyncronous with the ventilator, and Precedex was discontinued and she was placed back on Diprivan overnight at a low dose. This morning she does open her eyes to voice, she makes brief eye contact, she drifts back to sleep, he is not following commands yet, however her level of consciousness is improved , she is less sedated. Vital signs have been stable, she's been afebrile, blood pressure has been stable, no arrhythmias overnight. Output has been adequate in the order of 40-100 ML per hour. No other acute events overnight. We'll proceed with another sedation holiday today. Reevaluated today on 06/29/2021, patient remains in the ICU, she was extubated yesterday, she is on BiPAP 12/6 and 40% FiO2. I will transition the patient to a nasal cannula and see if tolerated. I will discontinue her Precedex today, she is presently on 0.2, patient is awake, she does follow simple instructions like closing eyes, sticking out tongue, wiggling toes, squeezing hands, remains nonverbal. Dramatic improvement in her neurological status today compared to yesterday. Chest x-ray showing minimal atelectasis especially at the right base. Patient was seen by neurology yesterday, and she was noted to have some meaningful clinical response. Hence this is favoring a good prognosis in spite of the acute anoxic brain injury. ABC today is relatively unremarkable, basic metabolic profile is normal, renal profile is normal. Patient remains on amiodarone, aspirin, atorvastatin, Lovenox, insulin, metoprolol, and she is empirically on Zosyn. Reevaluated today on 06/30/2021, patient remains in the ICU, she was successfully extubated 2 days ago, and she remains on BiPAP. She is on 12/6 and 40% FiO2. She was transitioned to a nasal cannula, but she did not tolerated well. Hence she had to be placed back on BiPAP. Intermittently has been getting agitated, requiring Precedex, and today our recommend Haldol, and possibly Ativan at night. Patient is about the same neurologically, she is not verbal, but she seems to be awake and follows simple instructions. CBC is relatively normal electrolytes are normal renal profile is normal. Chest x-ray showed patchy faint right midlung and baby basilar opacities. Possibly atelectasis Objective - Vital Signs Vital signs: Vital Signs Temp 99.2 F 06/30/21 12:00 Pulse 56 L 06/30/21 12:00 Resp 24 06/30/21 12:00 BP 146/64 06/30/21 00:00 Pulse Ox 99 06/30/21 12:00 Intake & Output 06/29/21 06/30/21 06/30/21 18:59 06:59 18:59 Intake Total 846.745 9232.965 762.532 Output Total 750 510 290 Balance 109.833 712.965 472.532 Weight 124.1 kg 125 kg Intake: IV 246 246 218 A line flush 36 36 18 Piperacillin-Tazobactam 3 100 100 .375 gm In Sodium Chloride 0.9% 100 ml @ 25 mls/hr IVPB Q8H [facility] Rx#: [id number] Sodium Chloride 0.9% 1, 110 210 100 000 ml @ 20 mls/hr IV . Q24H [facility] Rx#:[id number] Intake, IV Titration 3.833 166.965 64.532 Amount Clevidipine Butyrate 25 3.833 94.366 mg In Empty Bag 1 bag @ 1 MG/HR 2 mls/hr IV .Q24H [facility] Rx#:[id number] Dexmedetomidine/0.9% NaCl 72.599 64.532 (Pmx) 400 mcg In Empty Bag 1 bag @ Per Protocol IV .Q0M [facility] Rx#:[id number] Tube Feeding 490 720 360 Other 120 90 120 Output: Urine 750 510 290 Other: Voiding Method Indwelling Catheter Indwelling Catheter Indwelling Catheter ABP, PAP, CO, CI - Last Documented Arterial Blood Pressure 122/45 - Exam Gen.: Reveals 66-year-old female in no distress. On BiPAP, HEENT: Normocephalic. Neck is supple. Pupils reactive. Nostrils clear. Oral cavity is moist. Dry mucous membranes noted. Neck reveals no JVD, carotid bruits, or thyromegaly. CHEST EXAMINATION: Diminished breath sounds at the bases, no crackles or rhonchi or wheezes. CARDIAC: Normal S1 and S2, no S3 gallop, no murmur. ABDOMEN: Soft. Bowel sounds normal. No organomegaly. No abdominal bruits. Extremities:no Clubbing edema or cyanosis. Neurologically . Awake, follows simple instructions, mostly closing eyes, s ticking out tongue, squeezing hands, wiggling toes. But nonverbal. Skin: Chronic right heel ulcer is noted otherwise negative. Psychiatric: Depressed mood, blunt affect, seems to be appropriate and following simple instructions Musculoskeletal: No joint swelling or deformity. Normal range of motion. - Labs CBC & Chem 7: 06/30/21 04:10 06/30/21 04:00 Labs: Abnormal Lab Results - Last 24 Hours (Table) 06/29/21 06/30/21 06/30/21 Range/Units 18:46 00:04 04:00 RBC (3.80-5.40) m/uL Hgb (11.4-16.0) gm/dL Hct (34.0-46.0) % Sodium 146 H (137-145) mmol/L Chloride 112 H (98-107) mmol/L BUN 38 H (7-17) mg/dL Glucose 230 H (74-99) mg/dL POC Glucose (mg/dL) 184 H 246 H (75-99) mg/dL 06/30/21 06/30/21 06/30/21 Range/Units 04:10 06:12 11:35 RBC 3.20 L (3.80-5.40) m/uL Hgb 9.5 L (11.4-16.0) gm/dL Hct 29.6 L (34.0-46.0) % Sodium (137-145) mmol/L Chloride (98-107) mmol/L BUN (7-17) mg/dL Glucose (74-99) mg/dL POC Glucose (mg/dL) 243 H 226 H (75-99) mg/dL Microbiology - Last 24 Hours (Table) 06/25/21 15:33 Blood Culture - Preliminary Blood No Growth after 96 hours 06/25/21 15:52 Blood Culture - Preliminary Blood No Growth after 96 hours Assessment and Plan Assessment: #1. Acute cardiac arrest. The patient encounter the defibrillator arrest, witnessed, EMS was in the scene and the patient received defibrillation and resuscitation according to the ACLS protocol. The patient has a downtime of more than 20 minutes estimated to be around 20-25 minutes per records. Consider underlying development of anoxic encephalopathy. Echo of the heart showed a preserved LV function with concentric LVH and moderate mitral stenosis and moderate to severe pulmonary hypertension. Consider prolongation of QT as a cause for underlying V. fib arrest. Cardiac catheterization showed nonocclusive coronary artery disease. #2. Acute hypoxic respiratory failure secondary to above. The patient developed diffuse breath and pulmonary infiltrates right more than left and the patient has significant consolidation lung bases right more than left. Consider aspiration. The patient remains on IV Zosyn. There is interval improvement in the bilateral pulmonary infiltrates as noted. Patient was extubated on 021, and she tolerated the extubation well so far. #3. Suspect mild anoxic brain injury however her neurological status has been improving since extubation. #4. Acute leukocytosis secondary to above, improving, to continues on Zosyn for empiric antibiotic coverage, and cultures remain negative thus far #5. Minimal troponin leak secondary to above. The patient also received CPR #6. Diabetes mellitus. #7. Hyperlipidemia #8 possible aspiration pneumonia. Recommendation: Continue to monitor the patient in the ICU. Consider stopping Precedex again. And use Haldol for extreme agitation. Transition patient from BiPAP to nasal cannula. As tolerated. Continue Zosyn. Continue to monitor neurologically and cardiac-liao. Continue GI and DVT prophylaxis. Continue to monitor in the ICU. Prognosis remains relatively guarded. Time with Patient: Less than 30
--- NOTE | 2021-06-30 13:48 | P.PN ---
Subjective Progress Note Date: 06/30/21 The patient is a 66-year-old female who is seen in neurologic follow-up on June 30, 2021, via teleneurology. The chart is reviewed. Patient reportedly had an episode of cardiac arrest with the downtime of 25-30 minutes. This was apparently a witnessed arrest and CPR was started immediately. When EMS arrived at the scene, they continued CPR and found the patient to be in V. fib. Shock was delivered and pulses subsequently returned. Patient currently is extubated. She had been on respirator with sedation, for couple days. She was able to be weaned from the respirator. She is currently is receiving high flow oxygen via nasal cannula. EEG was performed revealing that ground slowing consistent with moderate to severe encephalopathy. MRI has not been performed, as of yet. Objective - Vital Signs Vital signs: Vital Signs Temp 99.2 F 06/30/21 12:00 Pulse 56 L 06/30/21 12:00 Resp 24 06/30/21 12:00 BP 146/64 06/30/21 00:00 Pulse Ox 99 06/30/21 12:00 Intake & Output 06/29/21 06/30/21 06/30/21 18:59 06:59 18:59 Intake Total 767.394 3360.965 762.532 Output Total 750 510 290 Balance 109.833 712.965 472.532 Weight 124.1 kg 125 kg Intake: IV 246 246 218 A line flush 36 36 18 Piperacillin-Tazobactam 3 100 100 .375 gm In Sodium Chloride 0.9% 100 ml @ 25 mls/hr IVPB Q8H [facility] Rx#: [id number] Sodium Chloride 0.9% 1, 110 210 100 000 ml @ 20 mls/hr IV . Q24H [facility] Rx#:[id number] Intake, IV Titration 3.833 166.965 64.532 Amount Clevidipine Butyrate 25 3.833 94.366 mg In Empty Bag 1 bag @ 1 MG/HR 2 mls/hr IV .Q24H [facility] Rx#:[id number] Dexmedetomidine/0.9% NaCl 72.599 64.532 (Pmx) 400 mcg In Empty Bag 1 bag @ Per Protocol IV .Q0M [facility] Rx#:[id number] Tube Feeding 490 720 360 Other 120 90 120 Output: Urine 750 510 290 Other: Voiding Method Indwelling Catheter Indwelling Catheter Indwelling Catheter ABP, PAP, CO, CI - Last Documented Arterial Blood Pressure 122/45 - Exam Gen.: The patient is reclining in the bed. She is on 10 L of high flow oxygen via nasal cannula. She appears to be restless. HEENT: Head is atraumatic, normocephalic. Fundus not visualized. There is no scleral icterus. Mucous membranes are dry. Neurological examination Mental status: The patient is awake. She is able to state her name. She reports that she was born in "[birth year]" she is unable to report the day or year of her . She is not oriented to her current location. Patient's speech is somewhat dysarthric and soft. The patient's answers to questions are delayed. Cranial nerves: Pupils are equal, round and reactive to light. There is no obvious facial asymmetry. Motor: Patient is moving all 4 extremities. She has difficulty following instructions for strength testing.there does agree to be a greater amount of movement of the right upper and lower extremity versus left. - Labs CBC & Chem 7: 06/30/21 04:10 06/30/21 04:00 Labs: Abnormal Lab Results - Last 24 Hours (Table) 06/29/21 06/30/21 06/30/21 Range/Units 18:46 00:04 04:00 RBC (3.80-5.40) m/uL Hgb (11.4-16.0) gm/dL Hct (34.0-46.0) % Sodium 146 H (137-145) mmol/L Chloride 112 H (98-107) mmol/L BUN 38 H (7-17) mg/dL Glucose 230 H (74-99) mg/dL POC Glucose (mg/dL) 184 H 246 H (75-99) mg/dL 06/30/21 06/30/21 06/30/21 Range/Units 04:10 06:12 11:35 RBC 3.20 L (3.80-5.40) m/uL Hgb 9.5 L (11.4-16.0) gm/dL Hct 29.6 L (34.0-46.0) % Sodium (137-145) mmol/L Chloride (98-107) mmol/L BUN (7-17) mg/dL Glucose (74-99) mg/dL POC Glucose (mg/dL) 243 H 226 H (75-99) mg/dL Microbiology - Last 24 Hours (Table) 06/25/21 15:33 Blood Culture - Preliminary Blood No Growth after 96 hours 06/25/21 15:52 Blood Culture - Preliminary Blood No Growth after 96 hours Assessment and Plan Assessment: 1. Anoxic encephalopathy status post cardiac arrest 2. History of COPD 3. History of hypertension 4. History of diabetes mellitus Plan: 1. Continue supportive care 2. Await MRI brain Time with Patient: Less than 30 (spent 15 minutes with patient via teleneurology)
[2021-06-30 17:47] LABS: Glucose,Whole Blood 189 mg/dL (75-99)
[2021-06-30 20:10] LABS: Glucose,Whole Blood 143 mg/dL (75-99)
--- NOTE | 2021-06-30 23:10 | P.PN ---
Subjective Progress Note Date: 06/30/21 Principal diagnosis: Acute cardiac arrest with ventricular fibrillation as per EMS Patient is a 66-year-old female with a known history of diabetes type 2 currently insulin-dependent, right diabetic heel ulcer with MRSA was brought to hospital by EMS after she had cardiac arrest. According to the family patient was sitting in the chair and suddenly went down and family started resuscitation with CPR. Apparently family did CPR for about 8 minutes prior to that. EMS was called and she was found to be in ventricular fibrillation. Patient was shocked once and then she went into PEA. She underwent CPR for about 15 minutes by EMS with return spontaneous circulation. Patient was brought to the ER where she was intubated. Initial vitals blood pressure was 96/50 pulse 96 and respiration 15 and pulse ox 94% on 9% nonrebreather. Chest x-ray showed diffuse increased lung markings in the right lung. Correlate for atypical pulmonary edema and pneumonia. CT head showed no acute intracranial hemorrhage or midline shift. There is mild to moderate diffuse age-related atrophy and mild chronic small vessel ischemic changes noted. CT angiogram showed no evidence of pulmonary embolism. Bilateral multifocal areas of groundglass opacity could reflect edema and/or infiltrates greatest in the upper versus lower lungs and greatest in the right lung. Correlate clinically to exclude COVID-19 infection. Laboratory data showed WBC 23.4 hemoglobin 13.7 and platelets of 234 D-dimer is greater than 34 BUN 20 creatinine 0.99 sodium 137 potassium 4.4 blood sugar is 222, AST 125 ALT 53 and alk phos 117, troponin 0 0.081 and proBNP 339 Patient was seen by cardiology and was taken to cardiac catheterization due to ventricular fibrillation as per EMS and to rule out cardiac etiology. 06/26/2021 Patient was admitted to the hospital status post cardiac arrest and was found to have V. tach. Patient remained intubated and sedated. Patient is being continued amiodarone drip which is being changed to by mouth. Started on oral tube feedings. Patient is status post cardiac catheterization showed mild obstructive disease involving the mid LAD. Right dominance. Normal left ventricular end-diastolic pressure. 2D echocardiogram showed ejection fraction 55 to 60%. Moderate mitral stenosis, moderate pulmonary hypertension with RVSP 54.3, IVC is dilated with no significant inspiratory collapse which is consistent with estimated right atrial pressure of greater than 20 mmHg. Chest x-ray today showed improved aeration of the upper lobes with mild persistent left lower lobe atelectasis. Correlate and follow-up. Laboratory showed WBC trending down to 14.2 hemoglobin 11.8 and platelets 240, BUN 31 creatinine 1.01 and blood sugar is 314 Patient is being continued antibiotics in the form of Zosyn. Continue with insulin sliding scale and Levemir was added. Patient is Levemir 38 units twice daily at home. Pulmonary and cardiology is on board. [id number] Patient is currently on mechanical ventilator. Patient had sedation holiday yesterday but became tachypneic and agitated and was started back on assist control. On sedation now. Patient withdraws with painful stimuli. Chest x-ray showed interstitial changes and cardiomegaly and mild pulmonary vessel congestion. Currently on normal saline at 75 mL per hour. Continued on antibiotics in the form of Zosyn. 2-D echocardiogram report as above. Patient has been afebrile. Tolerating tube feedings. Laboratory data showed WBC trending down to 30.8, hemoglobin 10.4 Sodium 137 potassium 4.1 BUN 31 creatinine 0.9. Pulmonary and neurology on board. 06/28/2021 Patient is on mechanical ventilator. Off sedation. Patient able to blink her eyes sometimes. Not responding to verbal stimulus. On assist control 400 FiO2 40%. PEEP 5. Off pressor support. Patient has been afebrile. Chest x-ray showed Stable portable chest. Laboratory data showed WBC 13.8 hemoglobin 10.1 BUN 29 creatinine 0.88, neurology and pulmonary is on board. 06/29/2021 Patient was extubated today morning. Initially was on BiPAP after extubation and is currently down to oxygen via nasal cannula. Patient is following and instructions with rapid commands. Patient could not speak at this time. Continued on NG tube for nutrition. Patient has been afebrile. Next line chest x-ray showed minimal atelectasis at the right lung base. Laboratory data showed WBC 10.7 hemoglobin 9.8 and platelets 208 sodium 144 potassium 4.0 chloride 111, BUN 30 and creatinine 0.82, blood sugar 159 06/30/2021 Patient is in the MICU. Awake alert and is able to turn her head and follow simple commands. Patient still aphasic. Overnight patient was on BiPAP and currently currently to nasal cannula. Chest x-ray today showed persistent patchy pain right midlung and bibasilar opacities. Right midlung opacity slightly more prominent. Findings consistent with COVID-19 infection. Lab data showed WBC 9.4 hemoglobin 9.5 and platelets 242 lymphocytes 1.2 Sodium 146 potassium 4.2 chloride 112 BUN 38 and creatinine 0.86 and blood sugar is 230 Current medications reviewed. Active Medications Generic Name Dose Route Start Last Admin Trade Name Freq PRN Reason Stop Dose Admin Amiodarone HCl 200 mg 06/28/21 09:00 06/30/21 20:16 Amiodarone 200 Mg Tab PO 200 mg BID CHELI Administration Aspirin 81 mg 06/26/21 09:00 06/30/21 09:03 Aspirin 81 Mg PO 81 mg DAILY CHELI Administration Atorvastatin Calcium 40 mg 06/26/21 09:00 06/30/21 09:03 Atorvastatin 40 Mg Tab PO 40 mg DAILY CHELI Administration Enoxaparin Sodium 40 mg 06/25/21 19:30 06/30/21 09:03 Enoxaparin 40 Mg/0.4 Ml Syringe SQ 40 mg DAILY CHELI Administration Haloperidol Lactate 2 mg 06/30/21 10:25 06/30/21 20:25 Haloperidol Lactate 5 Mg/Ml 1 Ml Vial IVP 2 mg Q6HR PRN Administration Agitation or Acute Psychosis Sodium Chloride 1,000 mls @ 20 mls/hr 06/25/21 17:30 06/30/21 20:43 Saline 0.9% IV 20 mls/hr .Q24H CHELI Administration Piperacillin Sod/Tazobactam 100 mls @ 25 mls/hr 06/25/21 20:00 06/30/21 20:14 Sod 3.375 gm/ Sodium Chloride IVPB 25 mls/hr Q8H CHELI Administration Clevidipine 25 mg/ IV Solution 50 mls @ 2 mls/hr 06/29/21 16:00 06/30/21 01:00 IV 0 mg/hr .Q24H CHELI 0 mls/hr Titration Protocol 1 MG/HR Insulin Aspart 0 unit 06/26/21 06:00 06/30/21 17:57 Insulin Aspart (Novolog) 100 Unit/Ml Vial SQ 3 unit Q6HR CHELI Administration Protocol Insulin Detemir 10 unit 06/26/21 09:15 06/30/21 20:16 Insulin Detemir (Levemir) 100 Unit/Ml Syr SQ 10 unit BID@0700,2100 CHELI Administration Metoprolol Tartrate 25 mg 06/27/21 09:00 06/30/21 20:16 Metoprolol Tartrate 25 Mg Tab PO 25 mg BID CHELI Administration Nitroglycerin 0.4 mg 06/25/21 15:37 Nitroglycerin Sl Tabs 0.4 Mg Tab SUBLINGUAL Q5M PRN Chest Pain Objective - Vital Signs Vital signs: Vital Signs Temp 98.2 F 06/30/21 20:00 Pulse 70 06/30/21 20:00 Resp 24 06/30/21 20:00 BP 146/64 06/30/21 20:00 Pulse Ox 94 L 06/30/21 20:00 Intake & Output 06/30/21 06/30/21 07/01/21 06:59 18:59 06:59 Intake Total 4208.477 2559.532 196 Output Total 510 735 200 Balance 712.965 525.532 -4 Weight 125 kg Intake: IV 246 356 46 A line flush 36 36 6 Piperacillin-Tazobactam 3 100 .375 gm In Sodium Chloride 0.9% 100 ml @ 25 mls/hr IVPB Q8H [facility] Rx#: [id number] Sodium Chloride 0.9% 1, 210 220 40 000 ml @ 20 mls/hr IV . Q24H [facility] Rx#:[id number] Intake, IV Titration 166.965 64.532 Amount Clevidipine Butyrate 25 94.366 mg In Empty Bag 1 bag @ 1 MG/HR 2 mls/hr IV .Q24H [facility] Rx#:[id number] Dexmedetomidine/0.9% NaCl 72.599 64.532 (Pmx) 400 mcg In Empty Bag 1 bag @ Per Protocol IV .Q0M [facility]LI Rx#:[id number] Tube Feeding 720 720 120 Other 90 120 30 Output: Urine 510 735 200 Other: Voiding Method Indwelling Catheter Indwelling Catheter Indwelling Catheter ABP, PAP, CO, CI - Last Documented Arterial Blood Pressure 145/52 - Exam PHYSICAL EXAMINATION: Patient is lying in the bed comfortably, no acute distress, awake alert but could not speak... HEENT: Normocephalic. Neck is supple. Pupils reactive. Nostrils clear. Oral cavity is moist. NG tube in place. Neck reveals no JVD, carotid bruits, or thyromegaly. CHEST EXAMINATION: Trachea is central. Symmetrical expansion. Minimal basilar crackles. Lung breen clear to auscultation and percussion. CARDIAC: Normal S1, S2 with no gallops. No murmurs ABDOMEN: Soft. Bowel sounds normal. No organomegaly. No abdominal bruits. Extremities: reveal no edema. No clubbing or cyanosis Neurologically patient is awake alert. Could not communicate.. No gross focal deficits noted Skin: No rash or skin lesions. Psychiatric: Coperative. Could not basis is completely Musculoskeletal: No joint swelling or deformity. - Labs CBC & Chem 7: 06/30/21 04:10 06/30/21 04:00 Labs: Abnormal Lab Results - Last 24 Hours (Table) 06/30/21 06/30/21 06/30/21 Range/Units 00:04 04:00 04:10 RBC 3.20 L (3.80-5.40) m/uL Hgb 9.5 L (11.4-16.0) gm/dL Hct 29.6 L (34.0-46.0) % Sodium 146 H (137-145) mmol/L Chloride 112 H (98-107) mmol/L BUN 38 H (7-17) mg/dL Glucose 230 H (74-99) mg/dL POC Glucose (mg/dL) 246 H (75-99) mg/dL 06/30/21 06/30/21 06/30/21 Range/Units 06:12 11:35 17:45 RBC (3.80-5.40) m/uL Hgb (11.4-16.0) gm/dL Hct (34.0-46.0) % Sodium (137-145) mmol/L Chloride (98-107) mmol/L BUN (7-17) mg/dL Glucose (74-99) mg/dL POC Glucose (mg/dL) 243 H 226 H 189 H (75-99) mg/dL 06/30/21 Range/Units 20:08 RBC (3.80-5.40) m/uL Hgb (11.4-16.0) gm/dL Hct (34.0-46.0) % Sodium (137-145) mmol/L Chloride (98-107) mmol/L BUN (7-17) mg/dL Glucose (74-99) mg/dL POC Glucose (mg/dL) 143 H (75-99) mg/dL Microbiology - Last 24 Hours (Table) 06/25/21 15:33 Blood Culture - Preliminary Blood No Growth after 120 hours 06/25/21 15:52 Blood Culture - Preliminary Blood No Growth after 120 hours Assessment and Plan Assessment: Acute encephalopathy status post cardiac arrest. Acute cardiac arrest with ventricular fibrillation as per EMS.Downtime approximately 25 to 30 minutes. Possible anoxic encephalopathy is being considered. Acute hypoxic respiratory failure Secondary to above. Patient is extubated. Possible right lower lobe aspiration pneumonia. Ruled out COVID-19 infection Elevated D-dimer level with no evidence of PE as per CTA Diabetes type 2 insulin-dependent History of smoking Morbid obesity BMI 42.4 Right heel Diabetic foot ulcer with clean base. No purulent drainage noted. DVT prophylaxis Plan: Patient is currently extubated and on oxygen via nasal cannula.Patient was on BiPAP last night. Patient is able to follow commands but still aphasic. Continue on NG tube feeding and speech and swallow service was consulted. Neurology is following. EEG was done.. CT head is negative. Status post cardiac catheterization showed mild CAD. Amiodarone changed to by mouth. Continued on aspirin, statins and beta-blockers were added. Continue with insulin sliding scale and insulin regimen. Antibiotics in the form of Zosyn. Cultures have been negative so far. Continue to follow closely. Time with Patient: Greater than 30
[2021-07-01 02:11] LABS: Glucose,Whole Blood 192 mg/dL (75-99)
[2021-07-01] MEDS: INSULIN ASPART (NovoLOG) 100 UNIT/ML VIAL SQ SCH ×4 (02:11→17:53)
[2021-07-01] MEDS: CLEVIDIPINE BUTYRATE 25 MG in EMPTY BAG 1 BAG IV SCH ×7 (03:30→22:00)
[2021-07-01] MEDS: PIPERACILLIN-TAZOBACTAM 3.375 GM in SODIUM CHLORIDE 0.9% 100 ML IVPB SCH (06:20)
[2021-07-01] MEDS: INSULIN DETEMIR (LEVEMIR) 100 UNIT/ML SYR SQ SCH ×2 (06:20→20:33)
[2021-07-01 06:27] LABS: Glucose,Whole Blood 208 mg/dL (75-99)
[2021-07-01 06:58] LABS: Basophils % (A) 0 %; Eosinophils # (A) 0.3 k/uL (0-0.7); Eosinophils % (A) 2 %; HCT 34.8 % (34.0-46.0); HGB 10.9 gm/dL (11.4-16.0); Hypochromasia Moderate; Lymphocytes # (A) 1.5 k/uL (1.0-4.8); Lymphocytes % (A) 11 %; MCH 29.3 pg (25.0-35.0); MCHC 31.3 g/dL (31.0-37.0); MCV 93.5 fL (80.0-100.0); Monocytes # (A) 0.9 k/uL (0-1.0); Monocytes % (A) 7 %; Neutrophils % (A) 79 %; Platelet Count 265 k/uL (150-450); RBC 3.72 m/uL (3.80-5.40); RDW 14.7 % (11.5-15.5); WBC 13.9 k/uL (3.8-10.6)
[2021-07-01 07:08] LABS: African American GFR (CKD) >90 (>60 ml/min/1.73 sqM); Anion Gap 7 mmol/L; Blood Urea Nitrogen 39 mg/dL (7-17); Calcium 9.5 mg/dL (8.4-10.2); Carbon Dioxide 30 mmol/L (22-30); Chloride 114 mmol/L (98-107); Glucose 237 mg/dL (74-99); Non-African American GFR(CKD) 85 (>60 ml/min/1.73 sqM); Potassium 4.2 mmol/L (3.5-5.1); Sodium 151 mmol/L (137-145)
[2021-07-01] MEDS: METOPROLOL TARTRATE 25 MG TAB PO SCH ×2 (08:46→20:32)
[2021-07-01] MEDS: AMIODARONE 200 MG TAB PO SCH ×2 (08:46→20:32)
[2021-07-01] MEDS: ASPIRIN 81 MG PO SCH (08:46)
[2021-07-01] MEDS: ATORVASTATIN 40 MG TAB PO SCH (08:46)
[2021-07-01] MEDS: ENOXAPARIN 40 MG/0.4 ML SYRINGE SQ SCH (08:46)
--- NOTE | 2021-07-01 09:00 | XR ---
EXAMINATION TYPE: XR chest 1V portable DATE OF EXAM: 07/01/2021 HISTORY: Shortness of breath. COMPARISON: 06/30/2021 TECHNIQUE: Single view of the chest is submitted. FINDINGS: NG tube is seen coursing towards the stomach. Left IJ central venous line unchanged in position. Card iomegaly with pulmonary venous congestion and interstitial curly B lines may reflect changes of inter stitial edema. Developing atelectasis or infiltrate right lower lobe. Correlate clinically. Hilar and mediastinal structures are within normal limits. Degenerative changes are seen of the dorsal spine. IMPRESSION: 1. Cardiomegaly with pulmonary venous congestion and interstitial curly B lines may reflect changes of interstitial edema. Developing atelectasis or infiltrate right lower lobe. Correlate clinically.
[2021-07-01] MEDS ORDERED: FUROSEMIDE 10 MG/ML 4 ML VIAL IV STA (09:14)
[2021-07-01] MEDS ORDERED: DEXTROSE 5% IN WATER 1,000 ML IV ONE (09:33)
--- NOTE | 2021-07-01 10:20 | P.PN ---
Subjective This is a pleasant 66 showed female who presented with cardiac arrest with V. fib status post cardioversion. She is currently on BiPAP. She is opening her eyes and attempting to communicate but is not making any sense. Telemetry tracings reveal persistent sinus mechanism with no further episodes of ventricular arrhythmia. Blood pressure 150/52 heart rate 88 afebrile maintaining oxygen saturation on BiPAP. Laboratory data reviewed, WBC 13.9, hemoglobin 10.9, platelets 265, sodium 151, potassium 4.2, creatinine 0.74. Currently maintained on amiodarone 200 mg twice a day, aspirin 81 mg daily, atorvastatin 40 mg daily, metoprolol 25 mg twice a day and Cleviprex infusion. She was also given one dose of IV diuretics this morning per pulmonary. Chest x-ray this morning reveals pulmonary venous congestion with interstitial edema noted. Developing atelectasis or infiltrate noted in the right lower lobe. She continues to be maintained on IV antibiotics as well. GENERAL: Well-appearing, well-nourished and in no acute distress. NECK: Supple without JVD or thyromegaly. LUNGS: Breath sounds clear to auscultation bilaterally. Respiration equal and unlabored. No wheezes, rales or rhonchi. HEART: Regular rate and rhythm without murmurs, rubs or gallops. S1 and S2 heard. EXTREMITIES: Normal range of motion, no edema. No clubbing or cyanosis. Peripheral pulses intact. ASSESSMENT Status post cardiac arrest and defibrillation Ventricular fibrillation Respiratory failure Anoxic encephalopathy Pneumonia, suspect aspiration Leukocytosis Diabetes mellitus Dyslipidemia PLAN Continue current medical regimen. Check NT proBNP. Continue to increase her activity as tolerated. We will continue to assess her mental status and request an evaluation by Dr. Gonzalez when she becomes more alert and oriented for possible EP study. Nurse Practitioner note has been reviewed, I agree with a documented findings and plan of care. Patient was seen and examined. Objective - Vital Signs Vital signs: Vital Signs Temp 98.2 F 07/01/21 00:00 Pulse 88 07/01/21 07:00 Resp 36 H 07/01/21 07:00 BP 146/64 06/30/21 20:00 Pulse Ox 92 L 07/01/21 07:00 Intake & Output 06/30/21 07/01/21 07/01/21 18:59 06:59 18:59 Intake Total 1260.532 679.233 89.467 Output Total 735 1085 65 Balance 525.532 -405.767 24.467 Weight 125 kg Intake: IV 356 253 23 A line flush 36 33 3 Piperacillin-Tazobactam 3 100 .375 gm In Sodium Chloride 0.9% 100 ml @ 25 mls/hr IVPB Q8H [facility] Rx#: [id number] Sodium Chloride 0.9% 1, 220 220 20 000 ml @ 20 mls/hr IV . Q24H [facility] Rx#:[id number] Intake, IV Titration 64.532 6.233 6.467 Amount Clevidipine Butyrate 25 6.233 6.467 mg In Empty Bag 1 bag @ 1 MG/HR 2 mls/hr IV .Q24H [facility] Rx#:[id number] Dexmedetomidine/0.9% NaCl 64.532 (Pmx) 400 mcg In Empty Bag 1 bag @ Per Protocol IV .Q0M [facility]LI Rx#:[id number] Tube Feeding 720 360 60 Other 120 60 Output: Urine 735 1085 65 Other: Voiding Method Indwelling Catheter Indwelling Catheter ABP, PAP, CO, CI - Last Documented Arterial Blood Pressure 150/52 - Labs CBC & Chem 7: 07/01/21 06:50 07/01/21 06:50 Labs: Abnormal Lab Results - Last 24 Hours (Table) 06/30/21 06/30/21 06/30/21 Range/Units 11:35 17:45 20:08 WBC (3.8-10.6) k/uL RBC (3.80-5.40) m/uL Hgb (11.4-16.0) gm/dL Neutrophils # (1.3-7.7) k/uL Sodium (137-145) mmol/L Chloride (98-107) mmol/L BUN (7-17) mg/dL Glucose (74-99) mg/dL POC Glucose (mg/dL) 226 H 189 H 143 H (75-99) mg/dL 07/01/21 07/01/21 07/01/21 Range/Units 02:09 06:15 06:50 WBC (3.8-10.6) k/uL RBC (3.80-5.40) m/uL Hgb (11.4-16.0) gm/dL Neutrophils # (1.3-7.7) k/uL Sodium 151 H (137-145) mmol/L Chloride 114 H (98-107) mmol/L BUN 39 H (7-17) mg/dL Glucose 237 H (74-99) mg/dL POC Glucose (mg/dL) 192 H 208 H (75-99) mg/dL 07/01/21 Range/Units 06:50 WBC 13.9 H (3.8-10.6) k/uL RBC 3.72 L (3.80-5.40) m/uL Hgb 10.9 L (11.4-16.0) gm/dL Neutrophils # 11.0 H (1.3-7.7) k/uL Sodium (137-145) mmol/L Chloride (98-107) mmol/L BUN (7-17) mg/dL Glucose (74-99) mg/dL POC Glucose (mg/dL) (75-99) mg/dL Microbiology - Last 24 Hours (Table) 06/25/21 15:33 Blood Culture - Preliminary Blood No Growth after 120 hours 06/25/21 15:52 Blood Culture - Preliminary Blood No Growth after 120 hours
[2021-07-01 12:27] LABS: Glucose,Whole Blood 309 mg/dL (75-99)
--- NOTE | 2021-07-01 13:43 | P.PN ---
Subjective Progress Note Date: 07/01/21 Acute cardiac arrest with ventricular fibrillation as per EMS Patient is a 66-year-old female with a known history of diabetes type 2 currently insulin-dependent, right diabetic heel ulcer with MRSA was brought to hospital by EMS after she had cardiac arrest. According to the family patient was sitting in the chair and suddenly went down and family started resuscitation with CPR. Apparently family did CPR for about 8 minutes prior to that. EMS was called and she was found to be in ventricular fibrillation. Patient was shocked once and then she went into PEA. She underwent CPR for about 15 minutes by EMS with return spontaneous circulation. Patient was brought to the ER where she was intubated. Initial vitals blood pressure was 96/50 pulse 96 and respiration 15 and pulse ox 94% on 9% nonrebreather. Chest x-ray showed diffuse increased lung markings in the right lung. Correlate for atypical pulmonary edema and pneumonia. CT head showed no acute intracranial hemorrhage or midline shift. There is mild to moderate diffuse age-related atrophy and mild chronic small vessel ischemic changes noted. CT angiogram showed no evidence of pulmonary embolism. Bilateral multifocal areas of groundglass opacity could reflect edema and/or infiltrates greatest in the upper versus lower lungs and greatest in the right lung. Correlate clinically to exclude COVID-19 infection. Laboratory data showed WBC 23.4 hemoglobin 13.7 and platelets of 234 D-dimer is greater than 34 BUN 20 creatinine 0.99 sodium 137 potassium 4.4 blood sugar is 222, AST 125 ALT 53 and alk phos 117, troponin 0 0.081 and proBNP 339 Patient was seen by cardiology and was taken to cardiac catheterization due to ventricular fibrillation as per EMS and to rule out cardiac etiology. 06/26/2021 Patient was admitted to the hospital status post cardiac arrest and was found to have V. tach. Patient remained intubated and sedated. Patient is being continued amiodarone drip which is being changed to by mouth. Started on oral tube feedings. Patient is status post cardiac catheterization showed mild obstructive disease involving the mid LAD. Right dominance. Normal left ventricular end-diastolic pressure. 2D echocardiogram showed ejection fraction 55 to 60%. Moderate mitral stenosis, moderate pulmonary hypertension with RVSP 54.3, IVC is dilated with no significant inspiratory collapse which is consistent with estimated right atrial pressure of greater than 20 mmHg. Chest x-ray today showed improved aeration of the upper lobes with mild persistent left lower lobe atelectasis. Correlate and follow-up. Laboratory showed WBC trending down to 14.2 hemoglobin 11.8 and platelets 240, BUN 31 creatinine 1.01 and blood sugar is 314 Patient is being continued antibiotics in the form of Zosyn. Continue with insulin sliding scale and Levemir was added. Patient is Levemir 38 units twice daily at home. Pulmonary and cardiology is on board. [id number] Patient is currently on mechanical ventilator. Patient had sedation holiday yesterday but became tachypneic and agitated and was started back on assist control. On sedation now. Patient withdraws with painful stimuli. Chest x-ray showed interstitial changes and cardiomegaly and mild pulmonary vessel congestion. Currently on normal saline at 75 mL per hour. Continued on antibiotics in the form of Zosyn. 2-D echocardiogram report as above. Patient has been afebrile. Tolerating tube feedings. Laboratory data showed WBC trending down to 30.8, hemoglobin 10.4 Sodium 137 potassium 4.1 BUN 31 creatinine 0.9. Pulmonary and neurology on board. 06/28/2021 Patient is on mechanical ventilator. Off sedation. Patient able to blink her eyes sometimes. Not responding to verbal stimulus. On assist control 400 FiO2 40%. PEEP 5. Off pressor support. Patient has been afebrile. Chest x-ray showed Stable portable chest. Laboratory data showed WBC 13.8 hemoglobin 10.1 BUN 29 creatinine 0.88, neurology and pulmonary is on board. 06/29/2021 Patient was extubated today morning. Initially was on BiPAP after extubation and is currently down to oxygen via nasal cannula. Patient is following and instructions with rapid commands. Patient could not speak at this time. Continued on NG tube for nutrition. Patient has been afebrile. Next line chest x-ray showed minimal atelectasis at the right lung base. Laboratory data showed WBC 10.7 hemoglobin 9.8 and platelets 208 sodium 144 potassium 4.0 chloride 111, BUN 30 and creatinine 0.82, blood sugar 159 06/30/2021 Patient is in the MICU. Awake alert and is able to turn her head and follow simple commands. Patient still aphasic. Overnight patient was on BiPAP and currently currently to nasal cannula. Chest x-ray today showed persistent patchy pain right midlung and bibasilar opacities. Right midlung opacity slightly more prominent. Findings consistent with COVID-19 infection. Lab data showed WBC 9.4 hemoglobin 9.5 and platelets 242 lymphocytes 1.2 Sodium 146 potassium 4.2 chloride 112 BUN 38 and creatinine 0.86 and blood sugar is 230 07/01/2021 Patient is seen and examined in follow-up this morning continues to be closely monitored in the ICU. She was having some shortness of breath on high flow with repeat chest x-ray showing cardiomegaly with pulmonary venous congestion and interstitial curly B-lines but may reflect changes of interstitial edema with developing atelectasis or infiltrate of the right lower lobe. Multiple medical consultations following including pulmonary and cardiology and patient was given a dose of IV Lasix today and is currently on BiPAP with settings of rate of 10 with inspiratory pressure of 12 expiratory pressure of 6 and FiO2 45% maintaining 95% oxygen saturation. Patient is awake and responding to voice and following simple commands although is aphasic. White blood count is 13.9 and hemoglobin is 10.9, sodium is elevated at 151 with a potassium of 4.2, chloride is 114, current creatinine is 0.74. BNP is 1550. Patient continues on Accu-Cheks and sliding-scale along with long-acting and will continue to monitor closely. Current medications reviewed. Active Medications Amiodarone HCl (Amiodarone 200 Mg Tab) 200 mg PO BID [facility] Last Admin: 07/01/21 08:46 Dose: 200 mg Documented by: Aspirin (Aspirin 81 Mg) 81 mg PO DAILY [facility] Last Admin: 07/01/21 08:46 Dose: 81 mg Documented by: Atorvastatin Calcium (Atorvastatin 40 Mg Tab) 40 mg PO DAILY [facility] Last Admin: 07/01/21 08:46 Dose: 40 mg Documented by: Enoxaparin Sodium (Enoxaparin 40 Mg/0.4 Ml Syringe) 40 mg SQ DAILY [facility] Last Admin: 07/01/21 08:46 Dose: 40 mg Documented by: Haloperidol Lactate (Haloperidol Lactate 5 Mg/Ml 1 Ml Vial) 2 mg IVP Q6HR PRN PRN Reason: Agitation or Acute Psychosis Last Admin: 06/30/21 20:25 Dose: 2 mg Documented by: Clevidipine 25 mg/ IV Solution 50 mls @ 2 mls/hr IV .Q24H [facility]; Protocol Last Admin: 07/01/21 09:51 Dose: 1 mg/hr, 2 mls/hr Documented by: Insulin Aspart (Insulin Aspart (Novolog) 100 Unit/Ml Vial) 0 unit SQ Q6HR [facility]; Protocol Last Admin: 07/01/21 12:35 Dose: 8 unit Documented by: Insulin Detemir (Insulin Detemir (Levemir) 100 Unit/Ml Syr) 10 unit SQ BID@0700,2100 [facility] Last Admin: 07/01/21 06:20 Dose: 10 unit Documented by: Metoprolol Tartrate (Metoprolol Tartrate 25 Mg Tab) 25 mg PO BID [facility] Last Admin: 07/01/21 08:46 Dose: 25 mg Documented by: Nitroglycerin (Nitroglycerin Sl Tabs 0.4 Mg Tab) 0.4 mg SUBLINGUAL Q5M PRN PRN Reason: Chest Pain PHYSICAL EXAMINATION: Patient is sitting in the bed comfortably, no acute distress, awake alert but unable to speak... Family at the bedside HEENT: Normocephalic. Neck is supple. Pupils reactive. Nostrils clear. Oral cavity is moist. NG tube in place. BiPAP noted Neck reveals no JVD, carotid bruits, or thyromegaly. CHEST EXAMINATION: Trachea is central. Symmetrical expansion. bibasilar crackles noted. CARDIAC: Normal S1, S2 with no gallops. No murmurs ABDOMEN: Soft. Bowel sounds normal. No organomegaly. No abdominal bruits. Extremities: reveal no edema. No clubbing or cyanosis Neurologically patient is awake alert. Unable to communicate.. No gross focal deficits noted, diffusely weak Skin: No rash or skin lesions. Psychiatric: Cooperative. Musculoskeletal: No joint swelling or deformity. Assessment: Acute encephalopathy status post cardiac arrest. Acute cardiac arrest with ventricular fibrillation as per EMS.Downtime approximately 25 to 30 minutes. Possible anoxic encephalopathy is being considered. Acute hypoxic respiratory failure Secondary to above. Patient is extubated. hypernatremia, will add increased free water flushes with feedings and repeat am labs Possible right lower lobe aspiration pneumonia. Ruled out COVID-19 infection Elevated D-dimer level with no evidence of PE as per CTA Diabetes type 2 insulin-dependent History of smoking Morbid obesity BMI 42.4 Right heel Diabetic foot ulcer with clean base. No purulent drainage noted. DVT prophylaxis Plan: Patient continues to be closely monitored in the ICU. Repeat chest x-ray today shows pulmonary venous congestion and curly b lines that may reflect changes of interstitial edema with developing atelectasis or infiltrate of the right lower lobe. Patient was given a dose of IV lasix and placed back on Bipap. Patient is awake and following commands but not appropriate. diffusely weak. PT/OT to evaluate the patient. Patient have multiple medical consultations following including pulmonary, cardio, neuro. Patient sodium elevated at 151 today and increased free water flushes and will repeat am labs. Family at the bedside states she was talking minimally yesterday when she had nasal cannula on. Patient continues on IV antibiotics in the form of zosyn and WBC is elevated at 13.9. Patient also continues on Cleviprex for blood pressure control. continue to monitor accuchecks and will repeat am labs. Objective - Vital Signs Vital signs: Vital Signs Temp 98.2 F 07/01/21 00:00 Pulse 88 07/01/21 07:00 Resp 36 H 07/01/21 07:00 BP 146/64 06/30/21 20:00 Pulse Ox 92 L 07/01/21 07:00 Intake & Output 06/30/21 07/01/21 07/01/21 18:59 06:59 18:59 Intake Total 1260.532 679.233 83 Output Total 735 1085 65 Balance 525.532 -405.767 18 Weight 125 kg Intake: IV 356 253 23 A line flush 36 33 3 Piperacillin-Tazobactam 3 100 .375 gm In Sodium Chloride 0.9% 100 ml @ 25 mls/hr IVPB Q8H [facility] Rx#: [id number] Sodium Chloride 0.9% 1, 220 220 20 000 ml @ 20 mls/hr IV . Q24H [facility] Rx#:[id number] Intake, IV Titration 64.532 6.233 Amount Clevidipine Butyrate 25 6.233 mg In Empty Bag 1 bag @ 1 MG/HR 2 mls/hr IV .Q24H [facility] Rx#:[id number] Dexmedetomidine/0.9% NaCl 64.532 (Pmx) 400 mcg In Empty Bag 1 bag @ Per Protocol IV .Q0M [facility] Rx#:[id number] Tube Feeding 720 360 60 Other 120 60 Output: Urine 735 1085 65 Other: Voiding Method Indwelling Catheter Indwelling Catheter ABP, PAP, CO, CI - Last Documented Arterial Blood Pressure 150/52 - Labs CBC & Chem 7: 07/01/21 06:50 07/01/21 06:50 Labs: Abnormal Lab Results - Last 24 Hours (Table) 06/30/21 06/30/21 06/30/21 Range/Units 11:35 17:45 20:08 WBC (3.8-10.6) k/uL RBC (3.80-5.40) m/uL Hgb (11.4-16.0) gm/dL Neutrophils # (1.3-7.7) k/uL Sodium (137-145) mmol/L Chloride (98-107) mmol/L BUN (7-17) mg/dL Glucose (74-99) mg/dL POC Glucose (mg/dL) 226 H 189 H 143 H (75-99) mg/dL 07/01/21 07/01/21 07/01/21 Range/Units 02:09 06:15 06:50 WBC (3.8-10.6) k/uL RBC (3.80-5.40) m/uL Hgb (11.4-16.0) gm/dL Neutrophils # (1.3-7.7) k/uL Sodium 151 H (137-145) mmol/L Chloride 114 H (98-107) mmol/L BUN 39 H (7-17) mg/dL Glucose 237 H (74-99) mg/dL POC Glucose (mg/dL) 192 H 208 H (75-99) mg/dL 07/01/21 Range/Units 06:50 WBC 13.9 H (3.8-10.6) k/uL RBC 3.72 L (3.80-5.40) m/uL Hgb 10.9 L (11.4-16.0) gm/dL Neutrophils # 11.0 H (1.3-7.7) k/uL Sodium (137-145) mmol/L Chloride (98-107) mmol/L BUN (7-17) mg/dL Glucose (74-99) mg/dL POC Glucose (mg/dL) (75-99) mg/dL Microbiology - Last 24 Hours (Table) 06/25/21 15:33 Blood Culture - Preliminary Blood No Growth after 120 hours 06/25/21 15:52 Blood Culture - Preliminary Blood No Growth after 120 hours
--- NOTE | 2021-07-01 14:25 | P.PN ---
Subjective Progress Note Date: 07/01/21 Principal diagnosis: Cardiac arrest and anoxic brain injury Today's evaluation on 06/27/2021 patient seen in the intensive care unit, yesterday she was given sedation holiday during which she became very anxious, agitated, however she remained nonpurposeful, she became very tachypneic and noncompliant with the ventilator, she was back on assist control mode of ventilation overnight. This morning she remains sedated, intubated on assist control mode of ventilation with a rate of 20, tidal emesis 400, FiO2 of 40% and PEEP of 5. This morning's blood gas shows pO2 of 77, pCO2 of 47, and PEEP of 5, this was done on the above mentioned settings. A chest x-ray shows cardiom egaly, and interstitial changes, mild pulmonary vascular congestion, with interval clearing of the previous opacity at the left lung base, and increased mild patchy density at the right base. Patient remains on Zosyn for empiric antibiotic coverage, she has had no fever or chills overnight, hemodynamically she is much more stable, she has been off pressors since yesterday, she is currently on 0.9 within a rate of 75 ML per hour, Diprivan and is at 25 mics per kilo per minute, and note that the patient has only required minimal sedation, and her sedation has been at 25 mics per kilo per minute of the program all along. Her pulse ox is 96%. Is in sinus mechanism with a rate of 63, no report ed arrhythmias overnight, cardiology is following, patient is status post cardiac catheterization, with no evidence of acute ischemic coronary artery disease, and patient is on medical therapy per cardiology recommendations. Her troponins peaked at 0.473 with a second troponin, her last set of troponins were yesterday at 5:00 in the morning with a troponin of 0.435. Echocardiogram has been completed showing preserved LV function with EF of 55-60%, severe concentric LVH, moderate mitral stenosis, mild tricuspid regurgitation, moderate pulmonary hypertension with right-sided pressure of 54.3 mmHg. There was a small generalized pericardial effusion present. VC was dilated with no significant inspiratory collapse consistent with estimated right-sided atrial pressure of greater than 20 mg of mercury. Neurologically patient is quite sedated on 25 mics of the prevent, she withdraws to painful stimuli, she does move all 4 extremities, she breathes over the vent, does have a positive gag, negative Babinski. Today's labs have been reviewed, white blood cell count is improving and is down to 13.8, hemoglobin is 10.4. No Other acute events overnight. On 06/28/2021 patient is seen in follow-up in the intensive care unit, she remains sedated and intubated on mechanical ventilator, currently on assist control mode of ventilation with a rate of 20, tidal volume 400, FiO2 of 40% and PEEP of 5, this morning's blood gas shows pO2 of 97, pCO2 50, pH is 7.35, and this was done on the above mentioned settings. She is currently on Diprivan at 15 mics per kilo per minute, and 0.9 normal saline at a rate of 10 ML per hour, no other drips. No vasopressor support, she is hemodynamically stable, she is in sinus mechanism with a controlled rate. Today's chest x-ray has been reviewed showing mild right infrahilar patchy density, which is stable in appearance. Today's labs have been reviewed, her white count is stable at 13.8, overall did improve since admission, hgb is 10.1, platelet count is 242, sodium is 142, potassium is 4.3, chloride is 109, BUN is 29, creatinine 0.88. 2 feed ings have not been started yet, however will be started with vital AF formula at a rate of 20 with a goal of 60 ML per hour with standard water flushes. Yesterday patient was quiet deeply sedated, we held her sedation most of the day, she did go on Precedex at a low dose, and patient never actually appropriately woke up and followed commands, and in the evening she became quite restless, dyssyncronous with the ventilator, and Precedex was discontinued and she was placed back on Diprivan overnight at a low dose. This morning she does open her eyes to voice, she makes brief eye contact, she drifts back to sleep, he is not following commands yet, however her level of consciousness is improved , she is less sedated. Vital signs have been stable, she's been afebrile, blood pressure has been stable, no arrhythmias overnight. Output has been adequate in the order of 40-100 ML per hour. No other acute events overnight. We'll proceed with another sedation holiday today. Reevaluated today on 06/29/2021, patient remains in the ICU, she was extubated yesterday, she is on BiPAP 12/6 and 40% FiO2. I will transition the patient to a nasal cannula and see if tolerated. I will discontinue her Precedex today, she is presently on 0.2, patient is awake, she does follow simple instructions like closing eyes, sticking out tongue, wiggling toes, squeezing hands, remains nonverbal. Dramatic improvement in her neurological status today compared to yesterday. Chest x-ray showing minimal atelectasis especially at the right base. Patient was seen by neurology yesterday, and she was noted to have some meaningful clinical response. Hence this is favoring a good prognosis in spite of the acute anoxic brain injury. ABC today is relatively unremarkable, basic metabolic profile is normal, renal profile is normal. Patient remains on amiodarone, aspirin, atorvastatin, Lovenox, insulin, metoprolol, and she is empirically on Zosyn. Reevaluated today on 06/30/2021, patient remains in the ICU, she was successfully extubated 2 days ago, and she remains on BiPAP. She is on 12/6 and 40% FiO2. She was transitioned to a nasal cannula, but she did not tolerated well. Hence she had to be placed back on BiPAP. Intermittently has been getting agitated, requiring Precedex, and today our recommend Haldol, and possibly Ativan at night. Patient is about the same neurologically, she is not verbal, but she seems to be awake and follows simple instructions. CBC is relatively normal electrolytes are normal renal profile is normal. Chest x-ray showed patchy faint right midlung and baby basilar opacities. Possibly atelectasis Reevaluated today on 07/01/21, patient remains in the ICU, she was earlier on 6 L nasal cannula, however she was noted to be working hard to breathe, and I recommended immediate switching the patient to BiPAP. As soon as she was placed on BiPAP, patient was noted to be more comfortable. Patient remains about the same, she is encephalopathic, she is noted to have significant work of breathing, she is hemodynamically stable, she is on clevidipine at 8 mg per hour. And she is now on BiPAP 12/6/45% patient is receiving enteral feeding vital AF 60/60. Objective - Vital Signs Vital signs: Vital Signs Temp 98.5 F 07/01/21 08:00 Pulse 68 07/01/21 10:00 Resp 30 H 07/01/21 10:00 BP 146/64 06/30/21 20:00 Pulse Ox 95 07/01/21 10:00 Intake & Output 06/30/21 07/01/21 07/01/21 18:59 06:59 18:59 Intake Total 1260.532 679.233 444.167 Output Total 735 1085 325 Balance 525.532 -405.767 119.167 Weight 125 kg Intake: IV 356 253 167 A line flush 36 33 12 Piperacillin-Tazobactam 3 100 75 .375 gm In Sodium Chloride 0.9% 100 ml @ 25 mls/hr IVPB Q8H [facility] Rx#: [id number] Sodium Chloride 0.9% 1, 220 220 80 000 ml @ 20 mls/hr IV . Q24H [facility] Rx#:[id number] Intake, IV Titration 64.532 6.233 7.167 Amount Clevidipine Butyrate 25 6.233 7.167 mg In Empty Bag 1 bag @ 1 MG/HR 2 mls/hr IV .Q24H [facility] Rx#:[id number] Dexmedetomidine/0.9% NaCl 64.532 (Pmx) 400 mcg In Empty Bag 1 bag @ Per Protocol IV .Q0M [facility] Rx#:[id number] Tube Feeding 720 360 240 Other 120 60 30 Output: Urine 735 1085 325 Other: Voiding Method Indwelling Catheter Indwelling Catheter ABP, PAP, CO, CI - Last Documented Arterial Blood Pressure 144/50 - Exam Gen.: Reveals 66-year-old female in no distress. Placed on BiPAP as soon as we evaluated the patient this morning. HEENT: Normocephalic. Neck is supple. Pupils reactive. Nostrils clear. Oral cavity is moist. Dry mucous membranes noted. Neck reveals no JVD, carotid bruits, or thyromegaly. CHEST EXAMINATION: Diminished breath sounds at the bases, no crackles or rhonchi or wheezes. CARDIAC: Normal S1 and S2, no S3 gallop, no murmur. ABDOMEN: Soft. Bowel sounds normal. No organomegaly. No abdominal bruits. Extremities:no Clubbing edema or cyanosis. Neurologically . Awake, follows simple instructions, mostly closing eyes, sticking out tongue, squeezing hands, wiggling toes. But nonverbal. Skin: Chronic right heel ulcer is noted otherwise negative. Psychiatric: Depressed mood, blunt affect, seems to be appropriate and following simple instructions Musculoskeletal: No joint swelling or deformity. Normal range of motion. - Labs CBC & Chem 7: 07/01/21 06:50 07/01/21 06:50 Labs: Abnormal Lab Results - Last 24 Hours (Table) 06/30/21 06/30/21 07/01/21 Range/Units 17:45 20:08 02:09 WBC (3.8-10.6) k/uL RBC (3.80-5.40) m/uL Hgb (11.4-16.0) gm/dL Neutrophils # (1.3-7.7) k/uL Sodium (137-145) mmol/L Chloride (98-107) mmol/L BUN (7-17) mg/dL Glucose (74-99) mg/dL POC Glucose (mg/dL) 189 H 143 H 192 H (75-99) mg/dL 07/01/21 07/01/21 07/01/21 Range/Units 06:15 06:50 06:50 WBC 13.9 H (3.8-10.6) k/uL RBC 3.72 L (3.80-5.40) m/uL Hgb 10.9 L (11.4-16.0) gm/dL Neutrophils # 11.0 H (1.3-7.7) k/uL Sodium 151 H (137-145) mmol/L Chloride 114 H (98-107) mmol/L BUN 39 H (7-17) mg/dL Glucose 237 H (74-99) mg/dL POC Glucose (mg/dL) 208 H (75-99) mg/dL 07/01/21 Range/Units 12:26 WBC (3.8-10.6) k/uL RBC (3.80-5.40) m/uL Hgb (11.4-16.0) gm/dL Neutrophils # (1.3-7.7) k/uL Sodium (137-145) mmol/L Chloride (98-107) mmol/L BUN (7-17) mg/dL Glucose (74-99) mg/dL POC Glucose (mg/dL) 309 H (75-99) mg/dL Microbiology - Last 24 Hours (Table) 06/25/21 15:33 Blood Culture - Preliminary Blood No Growth after 120 hours 06/25/21 15:52 Blood Culture - Preliminary Blood No Growth after 120 hours Assessment and Plan Assessment: #1. Acute cardiac arrest. The patient encounter the defibrillator arrest, witnessed, EMS was in the scene and the patient received defibrillation and resuscitation according to the ACLS protocol. The patient has a downtime of more than 20 minutes estimated to be around 20-25 minutes per records. Consider underlying development of anoxic encephalopathy. Echo of the heart showed a preserved LV function with concentric LVH and moderate mitral stenosis and moderate to severe pulmonary hypertension. Consider prolongation of QT as a cause for underlying V. fib arrest. Cardiac catheterization showed nonocclusive coronary artery disease. #2. Acute hypoxic respiratory failure secondary to above. The patient developed diffuse breath and pulmonary infiltrates right more than left and the patient has significant consolidation lung bases right more than left. Consider aspiration. The patient remains on IV Zosyn. There is interval improvement in the bilateral pulmonary infiltrates as noted. Patient was extubated on 06/28/2021, and she tolerated the extubation well so far. #3. Suspect mild anoxic brain injury however her neurological status has been improving since extubation. #4. Acute leukocytosis secondary to above, improving, on empiric antibiotic coverage, will discontinue Zosyn today. #5. Minimal troponin leak secondary to above. The patient also received CPR #6. Diabetes mellitus. #7. Hyperlipidemia #8 possible aspiration pneumonia. Recommendation: Placed again on BiPAP. In urology to assess again today. I believe the patient was scheduled to have MRI as per neurology note. Continue to monitor the patient in the ICU. Continue to monitor neurologically and cardiac-liao. Continue GI and DVT prophylaxis. Continue to monitor in the ICU. Prognosis remains relatively guarded. Time with Patient: Less than 30
[2021-07-01 17:41] LABS: Glucose,Whole Blood 313 mg/dL (75-99)
--- NOTE | 2021-07-01 18:52 | P.PN ---
Subjective Progress Note Date: 07/01/21 I'm seeing the patient for the first time for neurological management. Please refer to Dr. Arambula and Dr. Briceno note for further details. Per the patient nurse the patient is making some progress and currently she is on the BiPAP machine. But continues to have altered mental status. No seizure activities noted. Objective - Vital Signs Vital signs: Vital Signs Temp 98.3 F 07/01/21 12:00 Pulse 68 07/01/21 18:00 Resp 16 07/01/21 18:00 BP 146/64 06/30/21 20:00 Pulse Ox 95 07/01/21 18:00 Intake & Output 06/30/21 07/01/21 07/01/21 18:59 06:59 18:59 Intake Total 1260.532 416.511 8336.700 Output Total 735 1085 1125 Balance 525.532 -405.767 431.700 Weight 125 kg Intake: IV 356 253 351 A line flush 36 33 36 Piperacillin-Tazobactam 3 100 75 .375 gm In Sodium Chloride 0.9% 100 ml @ 25 mls/hr IVPB Q8H [facility] Rx#: [id number] Sodium Chloride 0.9% 1, 220 220 240 000 ml @ 20 mls/hr IV . Q24H [facility] Rx#:[id number] Intake, IV Titration 64.532 6.233 55.700 Amount Clevidipine Butyrate 25 6.233 55.700 mg In Empty Bag 1 bag @ 1 MG/HR 2 mls/hr IV .Q24H [facility] Rx#:[id number] Dexmedetomidine/0.9% NaCl 64.532 (Pmx) 400 mcg In Empty Bag 1 bag @ Per Protocol IV .Q0M [facility] Rx#:[id number] Tube Feeding 720 360 720 Other 120 60 430 Output: Urine 735 1085 1125 Other: Voiding Method Indwelling Catheter Indwelling Catheter External Catheter ABP, PAP, CO, CI - Last Documented Arterial Blood Pressure 143/54 - Exam Gen.: The patient is reclining in the bed and does not seem in acute distress. The patient is receiving BiPAP. Lung: The BiPAP mask was taken off and the patient was coughing and she she is seemed somewhat congested. Neurological examination Mental status: The patient is awake. She is able to state her name but not responding to time or place. She is able to name some objects correctly (pen, watch). There is delay in response. No neglect or noticeable aphasia noted. Cranial nerves: Pupils are equal, round and reactive to light. EOM is intact and no nystagmus. There is no obvious facial asymmetry. No dysarthria. Motor: Patient is moving all 4 extremities (uppers proximally are 3/5, right hand dental technician apprentice is 1-2 and left hand dental technician apprentice is 2-3/5. Bilateral lower is right lowers is 3/5 while left is 2/5. She had decrease tone throughout. Sensation: Could not assess. Reflexes: 1+ throughout except right biceps is 2+. WORK-UP: EEG was performed, which revealed background slowing of moderate to severe degree, suggestive of encephalopathy. No epileptiform activity was seen. * 2-D echo showed severe concentric LVH. EF between 55-60%. Aortic valve is trileaflet and is mildly thickened. * CT head showed no acute intracranial hemorrhage or midline shift. There is mild to moderate diffuse age-related cerebral atrophy and mild chronic small vessel ischemic change.. - Labs CBC & Chem 7: 07/01/21 06:50 07/01/21 06:50 Labs: Abnormal Lab Results - Last 24 Hours (Table) 06/30/21 07/01/21 07/01/21 Range/Units 20:08 02:09 06:15 WBC (3.8-10.6) k/uL RBC (3.80-5.40) m/uL Hgb (11.4-16.0) gm/dL Neutrophils # (1.3-7.7) k/uL Sodium (137-145) mmol/L Chloride (98-107) mmol/L BUN (7-17) mg/dL Glucose (74-99) mg/dL POC Glucose (mg/dL) 143 H 192 H 208 H (75-99) mg/dL 07/01/21 07/01/21 07/01/21 Range/Units 06:50 06:50 12:26 WBC 13.9 H (3.8-10.6) k/uL RBC 3.72 L (3.80-5.40) m/uL Hgb 10.9 L (11.4-16.0) gm/dL Neutrophils # 11.0 H (1.3-7.7) k/uL Sodium 151 H (137-145) mmol/L Chloride 114 H (98-107) mmol/L BUN 39 H (7-17) mg/dL Glucose 237 H (74-99) mg/dL POC Glucose (mg/dL) 309 H (75-99) mg/dL 07/01/21 Range/Units 17:39 WBC (3.8-10.6) k/uL RBC (3.80-5.40) m/uL Hgb (11.4-16.0) gm/dL Neutrophils # (1.3-7.7) k/uL Sodium (137-145) mmol/L Chloride (98-107) mmol/L BUN (7-17) mg/dL Glucose (74-99) mg/dL POC Glucose (mg/dL) 313 H (75-99) mg/dL Microbiology - Last 24 Hours (Table) 06/25/21 15:33 Blood Culture - Final Blood No Growth after 144 hours 06/25/21 15:52 Blood Culture - Final Blood No Growth after 144 hours Assessment and Plan Assessment: Anoxic encephalopathy status post cardiac arrest. Also component of altered mental status due to metabolic with the glucose in the 300s recently and her sodium is 151. Acute cardiac arrest and downtown more than 20 minutes and it was estimated between the 2024 minutes per record. Acute hypoxic respiratory failure due to acute cardiac arrest Diabetes mellitus and currently sugar in 300's. History of COPD History of hypertension Plan: It is reported by the previous neurology note that pending MRI but there is no MRI order. I don't think the patient will lie still for the MRI so therefore I'll get a repeat CT of the head. PT, OT and DEVELOPMENT CHEMIST are consulted. We'll defer the rest of the medical management to the primary/ICU team. The plan was discussed with the patient ICU nurse. Condition is guarded. Henri Solano M.D. Neuro-hospitalist Time with Patient: Less than 30
--- NOTE | 2021-07-01 22:22 | CT ---
EXAMINATION TYPE: CT brain wo con DATE OF EXAM: 07/01/2021 COMPARISON: 06/25/2021 HISTORY: Altered mental status. CT DLP: 1107.4 mGycm Automated exposure control for dose reduction was used. There is some cerebral cortical atrophy. There is no mass effect nor midline shift. There is no sign of intracranial hemorrhage. Calvarium is intact. Skull base is intact. There is some motion artifact. There is normal aeration of the mastoid sinuses. IMPRESSION: Mild cerebral atrophy. No acute intracranial abnormality. No change.
[2021-07-02] MEDS ORDERED: METOPROLOL SUCCINATE (ER) 25 MG TAB.ER.24H PO STA (00:01)
[2021-07-02 00:22] LABS: Glucose,Whole Blood 284 mg/dL (75-99)
[2021-07-02] MEDS: INSULIN ASPART (NovoLOG) 100 UNIT/ML VIAL SQ SCH ×5 (00:28→20:36)
[2021-07-02] MEDS: CLEVIDIPINE BUTYRATE 25 MG in EMPTY BAG 1 BAG IV SCH ×8 (00:43→21:13)
[2021-07-02 07:06] LABS: Glucose,Whole Blood 307 mg/dL (75-99)
[2021-07-02] MEDS: ASPIRIN 81 MG PO SCH (08:19)
[2021-07-02] MEDS: INSULIN DETEMIR (LEVEMIR) 100 UNIT/ML SYR SQ SCH ×2 (08:19→20:36)
[2021-07-02] MEDS: ENOXAPARIN 40 MG/0.4 ML SYRINGE SQ SCH (08:19)
[2021-07-02] MEDS: METOPROLOL TARTRATE 25 MG TAB PO SCH ×2 (08:19→20:36)
[2021-07-02] MEDS: ATORVASTATIN 40 MG TAB PO SCH (08:19)
[2021-07-02] MEDS: AMIODARONE 200 MG TAB PO SCH ×2 (08:20→20:36)
[2021-07-02 08:21] LABS: HCT 34.1 % (34.0-46.0); HGB 10.8 gm/dL (11.4-16.0); Hypochromasia Moderate; MCH 29.9 pg (25.0-35.0); MCHC 31.6 g/dL (31.0-37.0); MCV 94.5 fL (80.0-100.0); Mean Platelet Volume 9.5; Platelet Count 275 k/uL (150-450); RDW 14.8 % (11.5-15.5); WBC 14.6 k/uL (3.8-10.6)
[2021-07-02 08:37] LABS: Calcium 9.6 mg/dL (8.4-10.2); Potassium 4.1 mmol/L (3.5-5.1)
[2021-07-02] MEDS: DEXTROSE 5% IN WATER 1,000 ML IV SCH ×2 (09:15→21:14)
--- NOTE | 2021-07-02 10:45 | P.PN ---
Subjective Progress Note Date: 07/02/21 Acute cardiac arrest with ventricular fibrillation as per EMS Patient is a 66-year-old female with a known history of diabetes type 2 currently insulin-dependent, right diabetic heel ulcer with MRSA was brought to hospital by EMS after she had cardiac arrest. According to the family patient was sitting in the chair and suddenly went down and family started resuscitation with CPR. Apparently family did CPR for about 8 minutes prior to that. EMS was called and she was found to be in ventricular fibrillation. Patient was shocked once and then she went into PEA. She underwent CPR for about 15 minutes by EMS with return spontaneous circulation. Patient was brought to the ER where she was intubated. Initial vitals blood pressure was 96/50 pulse 96 and respiration 15 and pulse ox 94% on 9% nonrebreather. Chest x-ray showed diffuse increased lung markings in the right lung. Correlate for atypical pulmonary edema and pneumonia. CT head showed no acute intracranial hemorrhage or midline shift. There is mild to moderate diffuse age-related atrophy and mild chronic small vessel ischemic changes noted. CT angiogram showed no evidence of pulmonary embolism. Bilateral multifocal areas of groundglass opacity could reflect edema and/or infiltrates greatest in the upper versus lower lungs and greatest in the right lung. Correlate clinically to exclude COVID-19 infection. Laboratory data showed WBC 23.4 hemoglobin 13.7 and platelets of 234 D-dimer is greater than 34 BUN 20 creatinine 0.99 sodium 137 potassium 4.4 blood sugar is 222, AST 125 ALT 53 and alk phos 117, troponin 0 0.081 and proBNP 339 Patient was seen by cardiology and was taken to cardiac catheterization due to ventricular fibrillation as per EMS and to rule out cardiac etiology. 06/26/2021 Patient was admitted to the hospital status post cardiac arrest and was found to have V. tach. Patient remained intubated and sedated. Patient is being continued amiodarone drip which is being changed to by mouth. Started on oral tube feedings. Patient is status post cardiac catheterization showed mild obstructive disease involving the mid LAD. Right dominance. Normal left ventricular end-diastolic pressure. 2D echocardiogram showed ejection fraction 55 to 60%. Moderate mitral stenosis, moderate pulmonary hypertension with RVSP 54.3, IVC is dilated with no significant inspiratory collapse which is consistent with estimated right atrial pressure of greater than 20 mmHg. Chest x-ray today showed improved aeration of the upper lobes with mild persistent left lower lobe atelectasis. Correlate and follow-up. Laboratory showed WBC trending down to 14.2 hemoglobin 11.8 and platelets 240, BUN 31 creatinine 1.01 and blood sugar is 314 Patient is being continued antibiotics in the form of Zosyn. Continue with insulin sliding scale and Levemir was added. Patient is Levemir 38 units twice daily at home. Pulmonary and cardiology is on board. 9920 Patient is currently on mechanical ventilator. Patient had sedation holiday yesterday but became tachypneic and agitated and was started back on assist control. On sedation now. Patient withdraws with painful stimuli. Chest x-ray showed interstitial changes and cardiomegaly and mild pulmonary vessel congestion. Currently on normal saline at 75 mL per hour. Continued on antibiotics in the form of Zosyn. 2-D echocardiogram report as above. Patient has been afebrile. Tolerating tube feedings. Laboratory data showed WBC trending down to 30.8, hemoglobin 10.4 Sodium 137 potassium 4.1 BUN 31 creatinine 0.9. Pulmonary and neurology on board. 06/28/2021 Patient is on mechanical ventilator. Off sedation. Patient able to blink her eyes sometimes. Not responding to verbal stimulus. On assist control 400 FiO2 40%. PEEP 5. Off pressor support. Patient has been afebrile. Chest x-ray showed Stable portable chest. Laboratory data showed WBC 13.8 hemoglobin 10.1 BUN 29 creatinine 0.88, neurology and pulmonary is on board. 06/29/2021 Patient was extubated today morning. Initially was on BiPAP after extubation and is currently down to oxygen via nasal cannula. Patient is following and instructions with rapid commands. Patient could not speak at this time. Continued on NG tube for nutrition. Patient has been afebrile. Next line chest x-ray showed minimal atelectasis at the right lung base. Laboratory data showed WBC 10.7 hemoglobin 9.8 and platelets 208 sodium 144 potassium 4.0 chloride 111, BUN 30 and creatinine 0.82, blood sugar 159 06/30/2021 Patient is in the MICU. Awake alert and is able to turn her head and follow simple commands. Patient still aphasic. Overnight patient was on BiPAP and currently currently to nasal cannula. Chest x-ray today showed persistent patchy pain right midlung and bibasilar opacities. Right midlung opacity slightly more prominent. Findings consistent with COVID-19 infection. Lab data showed WBC 9.4 hemoglobin 9.5 and platelets 242 lymphocytes 1.2 Sodium 146 potassium 4.2 chloride 112 BUN 38 and creatinine 0.86 and blood sugar is 230 07/01/2021 Patient is seen and examined in follow-up this morning continues to be closely monitored in the ICU. She was having some shortness of breath on high flow with repeat chest x-ray showing cardiomegaly with pulmonary venous congestion and interstitial curly B-lines but may reflect changes of interstitial edema with developing atelectasis or infiltrate of the right lower lobe. Multiple medical consultations following including pulmonary and cardiology and patient was given a dose of IV Lasix today and is currently on BiPAP with settings of rate of 10 with inspiratory pressure of 12 expiratory pressure of 6 and FiO2 45% maintaining 95% oxygen saturation. Patient is awake and responding to voice and following simple commands although is aphasic. White blood count is 13.9 and hemoglobin is 10.9, sodium is elevated at 151 with a potassium of 4.2, chloride is 114, current creatinine is 0.74. BNP is 1550. Patient continues on Accu-Cheks and sliding-scale along with long-acting and will continue to monitor closely. 07/02/2021 Patient is seen in follow-up being closely monitored in the ICU. Patient continues to have some shortness of breath and difficulty in breathing and continues on BiPAP although was tolerating liters nasal cannula high flow and pulmonary following closely. Patient continues on cleviprex for tight blood pr essure control. Patient was on Lovenox and being transitioned oral anticoagulant of eliquis. Sodium continues to be elevated at 152 and will continue with increased free water flushes with tube feedings and we'll transition IV fluids to D5 in water gentle and will continue to closely monitor. Sugars have been elevated and will continue with Accu-Cheks every 4 along with sliding scale and long-acting insulin. White blood count is 14.6 today and hemoglobin is 10.8. Patient is afebrile. Neurology following and repeat CT of the brain was done showing mild cerebral atrophy with no acute intracranial abnormality and no changes noted from previous. Patient is alert and oriented 1-2 and following simple commands but continues to have difficulty in speaking and finding the words to say. Current medications reviewed. Active Medications Amiodarone HCl (Amiodarone 200 Mg Tab) 200 mg PO BID [facility] Last Admin: 07/02/21 08:20 Dose: 200 mg Documented by: Apixaban (Apixaban 5 Mg Tab) 5 mg PO BID [facility]; Protocol Aspirin (Aspirin 81 Mg) 81 mg PO DAILY [facility] Last Admin: 07/02/21 08:19 Dose: 81 mg Documented by: Atorvastatin Calcium (Atorvastatin 40 Mg Tab) 40 mg PO DAILY [facility] Last Admin: 07/02/21 08:19 Dose: 40 mg Documented by: Haloperidol Lactate (Haloperidol Lactate 5 Mg/Ml 1 Ml Vial) 2 mg IVP Q6HR PRN PRN Reason: Agitation or Acute Psychosis Last Admin: 06/30/21 20:25 Dose: 2 mg Documented by: Clevidipine 25 mg/ IV Solution 50 mls @ 2 mls/hr IV .Q24H [facility]; Protocol Last Admin: 07/02/21 05:29 Dose: 9 mg/hr, 18 mls/hr Documented by: Dextrose/Water (Dextrose 5%-Water Iv Soln) 1,000 mls @ 75 mls/hr IV .[id number] [facility] Insulin Aspart (Insulin Aspart (Novolog) 100 Unit/Ml Vial) 0 unit SQ Q6HR [facility]; Protocol Last Admin: 07/02/21 07:08 Dose: 8 unit Documented by: Insulin Detemir (Insulin Detemir (Levemir) 100 Unit/Ml Syr) 15 unit SQ BI D@0700,2100 [facility] Last Admin: 07/02/21 08:19 Dose: 15 unit Documented by: Metoprolol Tartrate (Metoprolol Tartrate 25 Mg Tab) 25 mg PO BID [facility] Last Admin: 07/02/21 08:19 Dose: 25 mg Documented by: Nitroglycerin (Nitroglycerin Sl Tabs 0.4 Mg Tab) 0.4 mg SUBLINGUAL Q5M PRN PRN Reason: Chest Pain PHYSICAL EXAMINATION: Patient is sitting in the bed comfortably, no acute distress, awake alert but unable to speak... HEENT: Normocephalic. Neck is supple. Pupils reactive. Nostrils clear. Oral cavity is moist. NG tube in place. BiPAP noted Neck reveals no JVD, carotid bruits, or thyromegaly. CHEST EXAMINATION: Trachea is central. Symmetrical expansion. bibasilar crackles noted. CARDIAC: Normal S1, S2 with no gallops. No murmurs ABDOMEN: Soft. Bowel sounds normal. No organomegaly. No abdominal bruits. Extremities: reveal no edema. No clubbing or cyanosis Neurologically patient is awake and alert. Unable to communicate.. No gross focal deficits noted, diffusely weak Skin: No rash or skin lesions. Psychiatric: Cooperative. Musculoskeletal: No joint swelling or deformity. Assessment: Acute encephalopathy status post cardiac arrest. Acute cardiac arrest with ventricular fibrillation as per EMS.Downtime approximately 25 to 30 minutes. Possible anoxic encephalopathy is being considered. Acute hypoxic respiratory failure Secondary to above. Patient is extubated and continues on BiPAP hypernatremia, will add increased free water flushes with feedings and repeat am labs, 152 today and will add D5 in water and repeat labs Possible right lower lobe aspiration pneumonia. Ruled out COVID-19 infection Elevated D-dimer level with no evidence of PE as per CTA Diabetes type 2 insulin-dependent, uncontrolled with hyperglycemia, continue wi th Accu-Cheks every 4 along with sliding scale and long-acting History of smoking Morbid obesity BMI 42.4 Right heel Diabetic foot ulcer with clean base. No purulent drainage noted. DVT prophylaxis, initiating eliquis Full code Plan: Patient continues to be closely monitored in the ICU. Repeat ET of the brain showing no acute changes and no intracranial abnormalities noted. Neurology following along with pulmonary and cardiology. Sodium continues to be worse at 152 and will increase free water flushes and continue a gentle IV hydration with D5 in water and repeat a.m. labs. PT/OT to evaluate the patient. Patient continues on IV antibiotics in the form of zosyn and WBC is elevated at 14.6. Patient also continues on Cleviprex for blood pressure control. continue to monitor accuchecks continue with sliding scale and long-acting. will repeat am labs. Prognosis is guarded. Objective - Vital Signs Vital signs: Vital Signs Temp 98.3 F 07/02/21 08:00 Pulse 62 07/02/21 09:00 Resp 27 H 07/02/21 09:00 BP 165/75 07/02/21 09:00 Pulse Ox 94 L 07/02/21 09:00 Intake & Output 07/01/21 07/02/21 07/02/21 18:59 06:59 18:59 Intake Total 5456.766 0108.0 129 Output Total 1125 600 450 Balance 117.144 7230.0 -321 Weight 125.5 kg Intake: IV 351 276 69 A line flush 36 36 9 Piperacillin-Tazobactam 3 75 .375 gm In Sodium Chloride 0.9% 100 ml @ 25 mls/hr IVPB Q8H [facility] Rx#: [id number] Sodium Chloride 0.9% 1, 240 240 60 000 ml @ 20 mls/hr IV . Q24H [facility] Rx#:[id number] Intake, IV Titration 55.700 214.0 Amount Clevidipine Butyrate 25 55.700 214.0 mg In Empty Bag 1 bag @ 1 MG/HR 2 mls/hr IV .Q24H [facility] Rx#:[id number] Tube Feeding 720 720 60 Other 430 620 Output: Urine 1125 600 450 Other: Voiding Method External Catheter External Catheter # Voids 1 1 ABP, PAP, CO, CI - Last Documented Arterial Blood Pressure 158/63 - Labs CBC & Chem 7: 07/02/21 08:10 07/02/21 08:10 Labs: Abnormal Lab Results - Last 24 Hours (Table) 07/01/21 07/01/21 07/02/21 Range/Units 12:26 17:39 00:21 WBC (3.8-10.6) k/uL RBC (3.80-5.40) m/uL Hgb (11.4-16.0) gm/dL Sodium (137-145) mmol/L Chloride (98-107) mmol/L Carbon Dioxide (22-30) mmol/L BUN (7-17) mg/dL Glucose (74-99) mg/dL POC Glucose (mg/dL) 309 H 313 H 284 H (75-99) mg/dL 07/02/21 07/02/21 07/02/21 Range/Units 07:05 08:10 08:10 WBC 14.6 H (3.8-10.6) k/uL RBC 3.60 L (3.80-5.40) m/uL Hgb 10.8 L (11.4-16.0) gm/dL Sodium 152 H (137-145) mmol/L Chloride 112 H (98-107) mmol/L Carbon Dioxide 33 H (22-30) mmol/L BUN 51 H (7-17) mg/dL Glucose 303 H (74-99) mg/dL POC Glucose (mg/dL) 307 H (75-99) mg/dL Microbiology - Last 24 Hours (Table) 06/25/21 15:33 Blood Culture - Final Blood No Growth after 144 hours 06/25/21 15:52 Blood Culture - Final Blood No Growth after 144 hours
[2021-07-02 11:24] LABS: Glucose,Whole Blood 264 mg/dL (75-99)
[2021-07-02] MEDS: APIXABAN 5 MG TAB PO SCH ×2 (11:44→20:36)
--- NOTE | 2021-07-02 12:14 | P.PN ---
Subjective This is a pleasant 66 showed female who presented with cardiac arrest with V. fib status post cardioversion. She is currently on BiPAP. She is opening her eyes and attempting to communicate but is not making any sense. Telemetry tracings reveal persistent sinus mechanism with no further episodes of ventricular arrhythmia. Blood pressure 150/52 heart rate 88 afebrile maintaining oxygen saturation on BiPAP. Laboratory data reviewed, WBC 13.9, hemoglobin 10.9, platelets 265, sodium 151, potassium 4.2, creatinine 0.74. Currently maintained on amiodarone 200 mg twice a day, aspirin 81 mg daily, atorvastatin 40 mg daily, metoprolol 25 mg twice a day and Cleviprex infusion. She was also given one dose of IV diuretics this morning per pulmonary. Chest x-ray this morning reveals pulmonary venous congestion with interstitial edema noted. Developing atelectasis or infiltrate noted in the right lower lobe. She continues to be maintained on IV antibiotics as well. 07/02/2021 Patient seen and examined sitting up in bed in the intensive care unit. BiPAP has been removed and she is maintaining oxygen saturations on nasal cannula. She is answering questions but is slow to respond and does not give more than one-word responses. She is still confused. Blood pressure 138/65 heart rate 63 afebrile maintaining oxygen saturation on nasal cannula. Laboratory data reviewed, WBC 14.6, hemoglobin 10.8, platelets 275, sodium 152, potassium 4.1, creatinine 0.8 and NTproBNP 1550. Telemetry tracings reviewed, she did go into atrial fibrillation last night for approximately 4 hours. Her rates were above 140. She was given GENERAL: Well-appearing, well-nourished and in no acute distress. NECK: Supple without JVD or thyromegaly. LUNGS: Breath sounds clear to auscultation bilaterally. Respiration equal and unlabored. No wheezes, rales or rhonchi. HEART: Regular rate and rhythm without murmurs, rubs or gallops. S1 and S2 heard. EXTREMITIES: Normal range of motion, no edema. No clubbing or cyanosis. Peripheral pulses intact. ASSESSMENT Status post cardiac arrest and defibrillation Ventricular fibrillation Respiratory failure Anoxic encephalopathy Pneumonia, suspect aspiration Paroxysmal atrial fibrillation with rapid ventricular response. Converted to SR. Leukocytosis Diabetes mellitus Dyslipidemia Hypernatremia PLAN Add eliquis 5 mg BID for thromboembolic protection. Continue lopressor for rate control. No diuretics at this time, continue to follow sodium closely. Continue to increase her activity as tolerated. We will continue to assess her mental status and request an evaluation by Dr. Gonzalez when she becomes more alert and oriented for possible EP study. Nurse Practitioner note has been reviewed, I agree with a documented findings and plan of care. Patient was seen and examined. Objective - Vital Signs Vital signs: Vital Signs Temp 98.3 F 07/02/21 08:00 Pulse 63 07/02/21 10:00 Resp 19 07/02/21 10:00 BP 138/65 07/02/21 10:00 Pulse Ox 96 07/02/21 10:00 Intake & Output 07/01/21 07/02/21 07/02/21 18:59 06:59 18:59 Intake Total 4481.114 8389.0 767.7 Output Total 1125 600 450 Balance 233.434 6703.0 317.7 Weight 125.5 kg Intake: IV 351 276 144 A line flush 36 36 9 Dextrose 5% in Water 1, 75 000 ml @ 75 mls/hr IV . [id number] [facility] Rx#:[id number] Piperacillin-Tazobactam 3 75 .375 gm In Sodium Chloride 0.9% 100 ml @ 25 mls/hr IVPB Q8H [facility] Rx#: [id number] Sodium Chloride 0.9% 1, 240 240 60 000 ml @ 20 mls/hr IV . Q24H [facility] Rx#:[id number] Intake, IV Titration 55.700 214.0 83.7 Amount Clevidipine Butyrate 25 55.700 214.0 83.7 mg In Empty Bag 1 bag @ 1 MG/HR 2 mls/hr IV .Q24H [facility] Rx#:[id number] Tube Feeding 720 720 240 Other 430 620 300 Output: Urine 1125 600 450 Other: Voiding Method External Catheter External Catheter External Catheter # Voids 1 1 ABP, PAP, CO, CI - Last Documented Arterial Blood Pressure 158/63 - Labs CBC & Chem 7: 07/02/21 08:10 07/02/21 08:10 Labs: Abnormal Lab Results - Last 24 Hours (Table) 07/01/21 07/01/21 07/02/21 Range/Units 12:26 17:39 00:21 WBC (3.8-10.6) k/uL RBC (3.80-5.40) m/uL Hgb (11.4-16.0) gm/dL Sodium (137-145) mmol/L Chloride (98-107) mmol/L Carbon Dioxide (22-30) mmol/L BUN (7-17) mg/dL Glucose (74-99) mg/dL POC Glucose (mg/dL) 309 H 313 H 284 H (75-99) mg/dL 07/02/21 07/02/21 07/02/21 Range/Units 07:05 08:10 08:10 WBC 14.6 H (3.8-10.6) k/uL RBC 3.60 L (3.80-5.40) m/uL Hgb 10.8 L (11.4-16.0) gm/dL Sodium 152 H (137-145) mmol/L Chloride 112 H (98-107) mmol/L Carbon Dioxide 33 H (22-30) mmol/L BUN 51 H (7-17) mg/dL Glucose 303 H (74-99) mg/dL POC Glucose (mg/dL) 307 H (75-99) mg/dL 07/02/21 Range/Units 11:22 WBC (3.8-10.6) k/uL RBC (3.80-5.40) m/uL Hgb (11.4-16.0) gm/dL Sodium (137-145) mmol/L Chloride (98-107) mmol/L Carbon Dioxide (22-30) mmol/L BUN (7-17) mg/dL Glucose (74-99) mg/dL POC Glucose (mg/dL) 264 H (75-99) mg/dL Microbiology - Last 24 Hours (Table) 06/25/21 15:33 Blood Culture - Final Blood No Growth after 144 hours 06/25/21 15:52 Blood Culture - Final Blood No Growth after 144 hours
--- NOTE | 2021-07-02 12:32 | P.PN ---
Subjective Progress Note Date: 07/02/21 Principal diagnosis: Cardiac arrest, anoxic brain injury Today's evaluation on 06/27/2021 patient seen in the intensive care unit, yesterday she was given sedation holiday during which she became very anxious, agitated, however she remained nonpurposeful, she became very tachypneic and noncompliant with the ventilator, she was back on assist control mode of ventilation overnight. This morning she remains sedated, intubated on assist control mode of ventilation with a rate of 20, tidal emesis 400, FiO2 of 40% and PEEP of 5. This morning's blood gas shows pO2 of 77, pCO2 of 47, and PEEP of 5, this was done on the above mentioned settings. A chest x-ray shows cardiomega ly, and interstitial changes, mild pulmonary vascular congestion, with interval clearing of the previous opacity at the left lung base, and increased mild patchy density at the right base. Patient remains on Zosyn for empiric antibiotic coverage, she has had no fever or chills overnight, hemodynamically she is much more stable, she has been off pressors since yesterday, she is currently on 0.9 within a rate of 75 ML per hour, Diprivan and is at 25 mics per kilo per minute, and note that the patient has only required minimal sedation, and her sedation has been at 25 mics per kilo per minute of the program all along. Her pulse ox is 96%. Is in sinus mechanism with a rate of 63, no reported arrhythmias overnight, cardiology is following, patient is status post cardiac catheterization, with no evidence of acute ischemic coronary artery disease, and patient is on medical therapy per cardiology recommendations. Her troponins peaked at 0.473 with a second troponin, her last set of troponins were yesterday at 5:00 in the morning with a troponin of 0.435. Echocardiogram has been completed showing preserved LV function with EF of 55-60%, severe concentric LVH, moderate mitral stenosis, mild tricuspid regurgitation, moderate pulmonary hypertension with right-sided pressure of 54.3 mmHg. There was a small generalized pericardial effusion present. VC was dilated with no significant inspiratory collapse consistent with estimated right-sided atrial pressure of greater than 20 mg of mercury. Neurologically patient is quite sedated on 25 mics of the prevent, she withdraws to painful stimuli, she does move all 4 extremities, she breathes over the vent, does have a positive gag, negative Babinski. Today's labs have been reviewed, white blood cell count is improving and is down to 13.8, hemoglobin is 10.4. No Other acute events overnight. On 06/28/2021 patient is seen in follow-up in the intensive care unit, she remains sedated and intubated on mechanical ventilator, currently on assist control mode of ventilation with a rate of 20, tidal volume 400, FiO2 of 40% and PEEP of 5, this morning's blood gas shows pO2 of 97, pCO2 50, pH is 7.35, and this was done on the above mentioned settings. She is currently on Diprivan at 15 mics per kilo per minute, and 0.9 normal saline at a rate of 10 ML per hour, no other drips. No vasopressor support, she is hemodynamically stable, she is in sinus mechanism with a controlled rate. Today's chest x-ray has been reviewed showing mild right infrahilar patchy density, which is stable in appearance. Today's labs have been reviewed, her white count is stable at 13.8, overall did improve since admission, hgb is 10.1, platelet count is 242, sodium is 142, potassium is 4.3, chloride is 109, BUN is 29, creatinine 0.88. 2 feedings have not been started yet, however will be started with vital AF formula at a rate of 20 with a goal of 60 ML per hour with standard water flushes. Yesterday patient was quiet deeply sedated, we held her sedation most of the day, she did go on Precedex at a low dose, and patient never actually ap propriately woke up and followed commands, and in the evening she became quite restless, dyssyncronous with the ventilator, and Precedex was discontinued and she was placed back on Diprivan overnight at a low dose. This morning she does open her eyes to voice, she makes brief eye contact, she drifts back to sleep, he is not following commands yet, however her level of consciousness is improved, she is less sedated. Vital signs have been stable, she's been afebrile, blood pressure has been stable, no arrhythmias overnight. Output has been adequate in the order of 40-100 ML per hour. No other acute events overnight. We'll proceed with another sedation holiday today. Reevaluated today on 06/29/2021, patient remains in the ICU, she was extubated yesterday, she is on BiPAP 12/6 and 40% FiO2. I will transition the patient to a nasal cannula and see if tolerated. I will discontinue her Precedex today, she is presently on 0.2, patient is awake, she does follow simple instructions like closing eyes, sticking out tongue, wiggling toes, squeezing hands, remains nonverbal. Dramatic improvement in her neurological status today compared to yesterday. Chest x-ray showing minimal atelectasis especially at the right base. Patient was seen by neurology yesterday, and she was noted to have some meaningful clinical response. Hence this is favoring a good prognosis in spite of the acute anoxic brain injury. ABC today is relatively unremarkable, basic metabolic profile is normal, renal profile is normal. Patient remains on amiodarone, aspirin, atorvastatin, Lovenox, insulin, metoprolol, and she is empirically on Zosyn. Reevaluated today on 06/30/2021, patient remains in the ICU, she was successfully extubated 2 days ago, and she remains on BiPAP. She is on 12/6 and 40% FiO2. She was transitioned to a nasal cannula, but she did not tolerated well. Hence she had to be placed back on BiPAP. Intermittently has been getting agitated, requiring Precedex, and today our recommend Haldol, and possibly Ativan at night. Patient is about the same neurologically, she is not verbal, but she seems to be awake and follows simple instructions. CBC is relatively normal electrolytes are normal renal profile is normal. Chest x-ray showed patchy faint right midlung and baby basilar opacities. Possibly atelectasis Reevaluated today on 07/01/21, patient remains in the ICU, she was earlier on 6 L nasal cannula, however she was noted to be working hard to breathe, and I recommended immediate switching the patient to BiPAP. As soon as she was placed on BiPAP, patient was noted to be more comfortable. Patient remains about the same, she is encephalopathic, she is noted to have significant work of breathing, she is hemodynamically stable, she is on clevidipine at 8 mg per margret r. And she is now on BiPAP 12/6/45% patient is receiving enteral feeding vital AF 60/60. The patient is seen today 07/02/2021 in follow-up in the intensive care unit. She remains awake, alert, following some simple commands. Computed tomography scan of the brain revealed mild cerebral atrophy. No acute intracranial abnormalities. No change compared to previous from 06/25/2021. Currently off the BiPAP and on 6 L high flow nasal cannula with O2 saturation 96%. She does have quite shallow respirations. She has a week cough. She remains in sinus rhythm. She has 0.9 normal saline at 20 mls per hour. Blood cultures revealed no growth. White count 14.6. Hemoglobin 10.8. Sodium 152. Potassium 4.1. Creatinine 0.80. She remains on amiodarone. Anticoagulated with Eliquis. Precedex at 0.7 mcg/kg/m. Hemodynamically stable. Objective - Vital Signs Vital signs: Vital Signs Temp 98.3 F 07/02/21 08:00 Pulse 70 07/02/21 12:00 Resp 24 07/02/21 12:00 BP 144/64 07/02/21 12:00 Pulse Ox 96 07/02/21 12:00 Intake & Output 07/01/21 07/02/21 07/02/21 18:59 06:59 18:59 Intake Total 9391.494 7550.0 783.3 Output Total 1125 600 450 Balance 515.342 8706.0 333.3 Weight 125.5 kg Intake: IV 351 276 144 A line flush 36 36 9 Dextrose 5% in Water 1, 75 000 ml @ 75 mls/hr IV . [id number] [facility] Rx#:[id number] Piperacillin-Tazobactam 3 75 .375 gm In Sodium Chloride 0.9% 100 ml @ 25 mls/hr IVPB Q8H [facility] Rx#: [id number] Sodium Chloride 0.9% 1, 240 240 60 000 ml @ 20 mls/hr IV . Q24H [facility] Rx#:[id number] Intake, IV Titration 55.700 214.0 99.3 Amount Clevidipine Butyrate 25 55.700 214.0 99.3 mg In Empty Bag 1 bag @ 1 MG/HR 2 mls/hr IV .Q24H [facility] Rx#:[id number] Tube Feeding 720 720 240 Other 430 620 300 Output: Urine 1125 600 450 Other: Voiding Method External Catheter External Catheter External Catheter # Voids 1 1 ABP, PAP, CO, CI - Last Documented Arterial Blood Pressure 158/63 - Exam GENERAL EXAM: Alert, very weak, 66-year-old female patient, on 6 L high flow nasal cannula, fairly comfortable in no apparent distress. HEAD: Normocephalic. EYES: Normal reaction of pupils, equal size. NOSE: Clear with pink turbinates. THROAT: No erythema or exudates. NECK: No masses, no JVD. CHEST: No chest wall deformity. LUNGS: Equal air entry with crackles in the bilateral posterior bases. CVS: S1 and S2 normal with no audible murmur, regular rhythm. ABDOMEN: No hepatosplenomegaly, normal bowel sounds, no guarding or rigidity. SPINE: No scoliosis or deformity SKIN: No rashes CENTRAL NERVOUS SYSTEM: No focal deficits, tone is normal in all 4 extremities. EXTREMITIES: There is trace peripheral edema. No clubbing, no cyanosis. Peripheral pulses are intact. - Labs CBC & Chem 7: 07/02/21 08:10 07/02/21 08:10 Labs: Abnormal Lab Results - Last 24 Hours (Table) 07/01/21 07/01/21 07/02/21 Range/Units 12:26 17:39 00:21 WBC (3.8-10.6) k/uL RBC (3.80-5.40) m/uL Hgb (11.4-16.0) gm/dL Sodium (137-145) mmol/L Chloride (98-107) mmol/L Carbon Dioxide (22-30) mmol/L BUN (7-17) mg/dL Glucose (74-99) mg/dL POC Glucose (mg/dL) 309 H 313 H 284 H (75-99) mg/dL 07/02/21 07/02/21 07/02/21 Range/Units 07:05 08:10 08:10 WBC 14.6 H (3.8-10.6) k/uL RBC 3.60 L (3.80-5.40) m/uL Hgb 10.8 L (11.4-16.0) gm/dL Sodium 152 H (137-145) mmol/L Chloride 112 H (98-107) mmol/L Carbon Dioxide 33 H (22-30) mmol/L BUN 51 H (7-17) mg/dL Glucose 303 H (74-99) mg/dL POC Glucose (mg/dL) 307 H (75-99) mg/dL 07/02/21 Range/Units 11:22 WBC (3.8-10.6) k/uL RBC (3.80-5.40) m/uL Hgb (11.4-16.0) gm/dL Sodium (137-145) mmol/L Chloride (98-107) mmol/L Carbon Dioxide (22-30) mmol/L BUN (7-17) mg/dL Glucose (74-99) mg/dL POC Glucose (mg/dL) 264 H (75-99) mg/dL Microbiology - Last 24 Hours (Table) 06/25/21 15:33 Blood Culture - Final Blood No Growth after 144 hours 06/25/21 15:52 Blood Culture - Final Blood No Growth after 144 hours Assessment and Plan Assessment: 1 Acute cardiac arrest. The patient encounter the defibrillator arrest, witnessed, EMS was in the scene and the patient received defibrillation and resuscitation according to the ACLS protocol. The patient has a downtime of more than 20 minutes estimated to be around 20-25 minutes per records. Consider underlying development of anoxic encephalopathy. Echo of the heart showed a preserved LV function with concentric LVH and moderate mitral stenosis and moderate to severe pulmonary hypertension. Consider prolongation of QT as a cause for underlying V. fib arrest. Cardiac catheterization showed nonocclusive coronary artery disease. 2 Acute hypoxic respiratory failure secondary to above. The patient developed diffuse breath and pulmonary infiltrates right more than left and the patient has significant consolidation lung bases right more than left. Consider aspiration. The patient completed a course of IV Zosyn. There is interval improvement in the bilateral pulmonary infiltrates as noted. Patient was extubated on 06/28/2021, and she tolerated the extubation well so far. Currently on 6 L high flow nasal cannula. Alternating with BiPAP 09/23 at 45% FiO2 3 Suspect mild anoxic brain injury however her neurological status has been improving since extubation. 07/01/2021 CT scan of the brain revealed no acute intracranial process. No change compared to previous on 06/25/2021. 4 Acute leukocytosis secondary to above, improving, on empiric antibiotic coverage, discontinue Zosyn yesterday. 5 Minimal troponin leak secondary to above. The patient also received CPR 6 Diabetes mellitus. 7 Hyperlipidemia 8 Possible aspiration pneumonia. 9 Hypernatremia, sodium 152 Thank: The patient was seen and evaluated by Dr. Duron Continues with altered mental status, suspect metabolic encephalopathy Change IV fluids to D5W at 75 ML's per hour due to hypernatremia Increase free water to 300 ML's every [address] back on BiPAP 09/23 and 45% FiO2 Continue to monitor her here in the ICU Neurology is following We will continue to follow and make further recommendations based on her clin ical status I, the cosigning physician, performed a history & physical examination of the patient. Lungs sounds with crackles in the bilateral posterior bases Maintaining good O2 saturations in the 90s on 6 L high flow nasal cannula. I discussed the assessment and plan of care with my nurse practitioner, Brittni García. I attest to the above note as dictated by her.
[2021-07-02 16:22] LABS: Glucose,Whole Blood 295 mg/dL (75-99)
[2021-07-02 20:37] LABS: Glucose,Whole Blood 276 mg/dL (75-99)
[2021-07-02] MEDS ORDERED: INSULIN DETEMIR (LEVEMIR) 100 UNIT/ML SYR SQ SCH (21:00)
[2021-07-03] MEDS: CLEVIDIPINE BUTYRATE 25 MG in EMPTY BAG 1 BAG IV SCH ×6 (00:10→16:11)
[2021-07-03 01:31] LABS: Glucose,Whole Blood 316 mg/dL (75-99)
[2021-07-03] MEDS: INSULIN ASPART (NovoLOG) 100 UNIT/ML VIAL SQ SCH ×6 (03:39→19:52)
[2021-07-03 03:43] LABS: Glucose,Whole Blood 309 mg/dL (75-99)
[2021-07-03 04:48] LABS: Basophils # (A) 0.1 k/uL (0-0.2); Basophils % (A) 0 %; Eosinophils # (A) 0.4 k/uL (0-0.7); Eosinophils % (A) 3 %; HCT 37.5 % (34.0-46.0); HGB 11.2 gm/dL (11.4-16.0); Hypochromasia Marked; Lymphocytes # (A) 1.5 k/uL (1.0-4.8); Lymphocytes % (A) 11 %; MCH 28.5 pg (25.0-35.0); MCHC 29.9 g/dL (31.0-37.0); MCV 95.6 fL (80.0-100.0); Mean Platelet Volume 9.3; Monocytes # (A) 0.8 k/uL (0-1.0); Monocytes % (A) 6 %; Neutrophils # (A) 10.8 k/uL (1.3-7.7); Neutrophils % (A) 79 %; Platelet Count 290 k/uL (150-450); RBC 3.92 m/uL (3.80-5.40); RDW 14.6 % (11.5-15.5); WBC 13.7 k/uL (3.8-10.6)
[2021-07-03 04:57] LABS: African American GFR (CKD) >90 (>60 ml/min/1.73 sqM); Anion Gap 6 mmol/L; Blood Urea Nitrogen 52 mg/dL (7-17); Calcium 9.8 mg/dL (8.4-10.2); Carbon Dioxide 34 mmol/L (22-30); Chloride 108 mmol/L (98-107); Glucose 343 mg/dL (74-99); Non-African American GFR(CKD) 88 (>60 ml/min/1.73 sqM); Potassium 4.2 mmol/L (3.5-5.1); Sodium 148 mmol/L (137-145)
[2021-07-03 08:06] LABS: Glucose,Whole Blood 391 mg/dL (75-99)
[2021-07-03] MEDS: lisinopriL 20 MG TAB PO SCH (09:23)
[2021-07-03] MEDS: APIXABAN 5 MG TAB PO SCH (09:23)
[2021-07-03] MEDS: AMIODARONE 200 MG TAB PO SCH ×2 (09:23→19:52)
[2021-07-03] MEDS: METOPROLOL TARTRATE 50 MG TAB PO SCH ×2 (09:23→19:52)
[2021-07-03] MEDS: ATORVASTATIN 40 MG TAB PO SCH (09:23)
[2021-07-03] MEDS: INSULIN DETEMIR (LEVEMIR) 100 UNIT/ML SYR SQ SCH ×2 (09:23→19:52)
--- NOTE | 2021-07-03 10:14 | P.PN ---
Subjective This is a pleasant 66 showed female who presented with cardiac arrest with V. fib status post cardioversion. She is currently on BiPAP. She is opening her eyes and attempting to communicate but is not making any sense. Telemetry tracings reveal persistent sinus mechanism with no further episodes of ventricular arrhythmia. Blood pressure 150/52 heart rate 88 afebrile maintaining oxygen saturation on BiPAP. Laboratory data reviewed, WBC 13.9, hemoglobin 10.9, platelets 265, sodium 151, potassium 4.2, creatinine 0.74. Currently maintained on amiodarone 200 mg twice a day, aspirin 81 mg daily, atorvastatin 40 mg daily, metoprolol 25 mg twice a day and Cleviprex infusion. She was also given one dose of IV diuretics this morning per pulmonary. Chest x-ray this morning reveals pulmonary venous congestion with interstitial edema noted. Developing atelectasis or infiltrate noted in the right lower lobe. She continues to be maintained on IV antibiotics as well. 07/03/2021 Pt seen and examined resting in bed with bipap on. She continues to be somnolent and confused. Blood pressure 124/67 heart rate 75 afebrile and maintaining oxygen saturation on bipap. Laboratory data reviewed, WBC 13.7, hgb 11.2, plt 290, sodium 148, potassium 4.2, creatinine 0.72. 24-hr urine output 1.3 L She continues to be SR on the monitor, no ventricular or atrial arrhythmia in the last 24 hours. Currently maintained on amiodarone 200 mg BID, eliquis 5 mg BID, atorvastatin 40 mg daily, aspirin 81 mg daily, lisinopril 10 mg daily and lopres sor 25 mg BID. GENERAL: on Bipap in no acute distress, somnolent NECK: Supple without JVD or thyromegaly. LUNGS: Breath sounds clear to auscultation bilaterally. Respiration equal and unlabored. No wheezes, rales or rhonchi. HEART: Regular rate and rhythm without murmurs, rubs or gallops. S1 and S2 heard. EXTREMITIES: Normal range of motion, no edema. No clubbing or cyanosis. Peripheral pulses intact. ASSESSMENT Status post cardiac arrest and defibrillation Ventricular fibrillation Respiratory failure Anoxic encephalopathy Pneumonia, suspect aspiration Paroxysmal atrial fibrillation with rapid ventricular response. Converted to SR. Leukocytosis Diabetes mellitus Dyslipidemia Hypernatremia PLAN Discontinue aspirin. Continue eliquis. Increase lopressor to 50 mg BID and lisinopril to 20 mg daily. Continue to increase her activity as tolerated. We will continue to assess her mental status and request an evaluation by Dr. Gonzalez when she becomes more alert and oriented for possible EP study. Nurse Practitioner note has been reviewed, I agree with a documented findings and plan of care. Patient was seen and examined. Objective - Vital Signs Vital signs: Vital Signs Temp 98.2 F 07/03/21 04:00 Pulse 75 07/03/21 06:00 Resp 27 H 07/03/21 06:00 BP 124/67 07/03/21 06:00 Pulse Ox 90 L 07/03/21 06:00 Intake & Output 07/02/21 07/03/21 07/03/21 18:59 06:59 18:59 Intake Total 2527.200 1957.433 Output Total 750 550 Balance 5386.443 1615.433 Weight 129.7 kg Intake: IV 744 900 A line flush 9 Dextrose 5% in Water 1, 675 900 000 ml @ 75 mls/hr IV . [id number] [facility] Rx#:[id number] Sodium Chloride 0.9% 1, 60 000 ml @ 20 mls/hr IV . Q24H [facility] Rx#:[id number] Intake, IV Titration 163.200 217.433 Amount Clevidipine Butyrate 25 163.200 217.433 mg In Empty Bag 1 bag @ 1 MG/HR 2 mls/hr IV .Q24H [facility] Rx#:[id number] Tube Feeding 720 720 Other 900 120 Output: Urine 750 550 Other: Voiding Method External Catheter External Catheter # Voids 1 ABP, PAP, CO, CI - Last Documented Arterial Blood Pressure 158/63 - Labs CBC & Chem 7: 07/03/21 04:20 07/03/21 04:20 Labs: Abnormal Lab Results - Last 24 Hours (Table) 07/02/21 07/02/21 07/02/21 Range/Units 11:22 16:19 20:25 WBC (3.8-10.6) k/uL Hgb (11.4-16.0) gm/dL MCHC (31.0-37.0) g/dL Neutrophils # (1.3-7.7) k/uL Sodium (137-145) mmol/L Chloride (98-107) mmol/L Carbon Dioxide (22-30) mmol/L BUN (7-17) mg/dL Glucose (74-99) mg/dL POC Glucose (mg/dL) 264 H 295 H 276 H (75-99) mg/dL 07/03/21 07/03/21 07/03/21 Range/Units 01:20 03:42 04:20 WBC 13.7 H (3.8-10.6) k/uL Hgb 11.2 L (11.4-16.0) gm/dL MCHC 29.9 L (31.0-37.0) g/dL Neutrophils # 10.8 H (1.3-7.7) k/uL Sodium (137-145) mmol/L Chloride (98-107) mmol/L Carbon Dioxide (22-30) mmol/L BUN (7-17) mg/dL Glucose (74-99) mg/dL POC Glucose (mg/dL) 316 H 309 H (75-99) mg/dL 07/03/21 07/03/21 Range/Units 04:20 08:05 WBC (3.8-10.6) k/uL Hgb (11.4-16.0) gm/dL MCHC (31.0-37.0) g/dL Neutrophils # (1.3-7.7) k/uL Sodium 148 H (137-145) mmol/L Chloride 108 H (98-107) mmol/L Carbon Dioxide 34 H (22-30) mmol/L BUN 52 H (7-17) mg/dL Glucose 343 H (74-99) mg/dL POC Glucose (mg/dL) 391 H (75-99) mg/dL
--- NOTE | 2021-07-03 10:50 | P.PN ---
Subjective Progress Note Date: 07/03/21 Principal diagnosis: cardiac arrest Today's evaluation on 06/27/2021 patient seen in the intensive care unit, yesterday she was given sedation holiday during which she became very anxious, agitated, however she remained nonpurposeful, she became very tachypneic and noncompliant with the ventilator, she was back on assist control mode of ventilation overnight. This morning she remains sedated, intubated on assist control mode of ventilation with a rate of 20, tidal emesis 400, FiO2 of 40% and PEEP of 5. This morning's blood gas shows pO2 of 77, pCO2 of 47, and PEEP of 5, this was done on the above mentioned settings. A chest x-ray shows cardiomegaly, and interstitial changes, mild pulmonary vascular congestion, with interval clearing of the previous opacity at the left lung base, and increased mild patchy density at the right base. Patient remains on Zosyn for empiric antibiotic coverage, she has had no fever or chills overnight, hemodynamically she is much more stable, she has been off pressors since yesterday, she is currently on 0.9 within a rate of 75 ML per hour, Diprivan and is at 25 mics per kilo per minute, and note that the patient has only required minimal sedation, and her sedation has been at 25 mics per kilo per minute of the program all kulwant g. Her pulse ox is 96%. Is in sinus mechanism with a rate of 63, no reported arrhythmias overnight, cardiology is following, patient is status post cardiac catheterization, with no evidence of acute ischemic coronary artery disease, and patient is on medical therapy per cardiology recommendations. Her troponins peaked at 0.473 with a second troponin, her last set of troponins were yesterday at 5:00 in the morning with a troponin of 0.435. Echocardiogram has been completed showing preserved LV function with EF of 55-60%, severe concentric LVH, moderate mitral stenosis, mild tricuspid regurgitation, moderate pulmonary hypertension with right-sided pressure of 54.3 mmHg. There was a small generalized pericardial effusion present. VC was dilated with no significant inspiratory collapse consistent with estimated right-sided atrial pressure of greater than 20 mg of mercury. Neurologically patient is quite sedated on 25 mics of the prevent, she withdraws to painful stimuli, she does move all 4 extremities, she breathes over the vent, does have a positive gag, negative Babinski. Today's labs have been reviewed, white blood cell count is improving and is down to 13.8, hemoglobin is 10.4. No Other acute events overnight. On 06/28/2021 patient is seen in follow-up in the intensive care unit, she remains sedated and intubated on mechanical ventilator, currently on assist control mode of ventilation with a rate of 20, tidal volume 400, FiO2 of 40% and PEEP of 5, this morning's blood gas shows pO2 of 97, pCO2 50, pH is 7.35, and this was done on the above mentioned settings. She is currently on Diprivan at 15 mics per kilo per minute, and 0.9 normal saline at a rate of 10 ML per hour, no other drips. No vasopressor support, she is hemodynamically stable, she is in sinus mechanism with a controlled rate. Today's chest x-ray has been reviewed showing mild right infrahilar patchy density, which is stable in appearance. Today's labs have been reviewed, her white count is stable at 13.8, overall did improve since admission, hgb is 10.1, platelet count is 242, sodium is 142, potassium is 4.3, chloride is 109, BUN is 29, creatinine 0.88. 2 feedings have not been started yet, however will be started with vital AF formula at a rate of 20 with a goal of 60 ML per hour with standard water flushes. Yesterday patient was quiet deeply sedated, we held her sedation most of the day, she did go on Precedex at a low dose, and patient never actually appropriately woke up and followed commands, and in the evening she became quite restless, dyssyncronous with the ventilator, and Precedex was discontinued and she was placed back on Diprivan overnight at a low dose. This morning she does open her eyes to voice, she makes brief eye contact, she drifts back to sleep, he is not following commands yet, however her level of consciousness is improved, she is less sedated. Vital signs have been stable, she's been afebrile, blood pressure has been stable, no arrhythmias overnight. Output has been adequate in the order of 40-100 ML per hour. No other acute events overni ght. We'll proceed with another sedation holiday today. On 07/03/2021 patient seen in follow-up in intensive care unit, she remains on BiPAP with pressures of 12 and 6 and FiO2 of 45%, and her pulse ox 90-91%, hemodynamically she is hypertensive, and she is currently on proximal infusion at a rate of 12 and milk per hour, her maintenance IV fluids are D5 W at a rate of 75 ML per hour, she is in sinus mechanism with a controlled rate. She is awake, she makes good eye contact, is hard for her to talk on the BiPAP, she can answer some simple questions. She seems to be anxious. She still has NG tube in her left Kristen, she is receiving tube feedings with vital HP at a goal rate, she in addition to 300 mL of free water flushes every 4 hours, today sodium is down to 148. White count is 13.7, hemoglobin is 11.2, potassium is 4.2, chloride is 108, CO2 is 34, BUN is 52, creatinine 0.72, her last chest x-ray from 2 days ago showed cardiomegaly with pulmonary venous congestion and interstitial curly B-lines. We will obtain follow-up chest x-ray today, no fever or chills overnight, her blood and sputum cultures have been negative, patient has completed a course of Zosyn. She is following simple commands, however she is anxious, and encephalopathic repeat brain CT yesterday showed mil d cerebral atrophy, no acute intracranial abnormality. Neurology is following. No reported seizure activity. Objective - Vital Signs Vital signs: Vital Signs Temp 98.2 F 07/03/21 04:00 Pulse 75 07/03/21 06:00 Resp 27 H 07/03/21 06:00 BP 124/67 07/03/21 06:00 Pulse Ox 90 L 07/03/21 06:00 Intake & Output 07/02/21 07/03/21 07/03/21 18:59 06:59 18:59 Intake Total 2527.200 1957.433 Output Total 750 550 Balance 2308.754 3511.433 Weight 129.7 kg Intake: IV 744 900 A line flush 9 Dextrose 5% in Water 1, 675 900 000 ml @ 75 mls/hr IV . [id number] [facility] Rx#:[id number] Sodium Chloride 0.9% 1, 60 000 ml @ 20 mls/hr IV . Q24H [facility] Rx#:[id number] Intake, IV Titration 163.200 217.433 Amount Clevidipine Butyrate 25 163.200 217.433 mg In Empty Bag 1 bag @ 1 MG/HR 2 mls/hr IV .Q24H [facility] Rx#:[id number] Tube Feeding 720 720 Other 900 120 Output: Urine 750 550 Other: Voiding Method External Catheter External Catheter # Voids 1 ABP, PAP, CO, CI - Last Documented Arterial Blood Pressure 158/63 - Exam GENERAL EXAM: 66-year-old white female patient on BiPAP support, with pressures of 12 and 6, and FiO2 of 45%, with pulse ox of 90-91%, appears anxious, patient follows simple command HEAD: Normocephalic/atraumatic. EYES: Normal reaction of pupils, equal size. Conjunctiva pink, sclera white. NOSE: Clear with pink turbinates. NG tube in the left nares, and patient is receiving tube feedings THROAT: No erythema or exudates. NECK: No masses, no JVD, no thyroid enlargement, no adenopathy. CHEST: No chest wall deformity. Symmetrical expansion. LUNGS: Equal air entry with no crackles, wheeze, rhonchi or dullness. CVS: Regular rate and rhythm, normal S1 and S2, no gallops, no murmurs, no rubs ABDOMEN: Soft, nontender. No hepatosplenomegaly, normal bowel sounds, no guarding or rigidity. EXTREMITIES: No clubbing, no edema, no cyanosis, 2+ pulses and upper and lower extremities. MUSCULOSKELETAL: Muscle strength and tone normal. SPINE: No scoliosis or deformity SKIN: No rashes CENTRAL NERVOUS SYSTEM: Awake and alert, anxious, follows simple commands, moves all 4 extremities, encephalopathic, confused, is currently on BiPAP support - Labs CBC & Chem 7: 07/03/21 04:20 07/03/21 04:20 Labs: Abnormal Lab Results - Last 24 Hours (Table) 07/02/21 07/02/21 07/02/21 Range/Units 11:22 16:19 20:25 WBC (3.8-10.6) k/uL Hgb (11.4-16.0) gm/dL MCHC (31.0-37.0) g/dL Neutrophils # (1.3-7.7) k/uL Sodium (137-145) mmol/L Chloride (98-107) mmol/L Carbon Dioxide (22-30) mmol/L BUN (7-17) mg/dL Glucose (74-99) mg/dL POC Glucose (mg/dL) 264 H 295 H 276 H (75-99) mg/dL 07/03/21 07/03/21 07/03/21 Range/Units 01:20 03:42 04:20 WBC 13.7 H (3.8-10.6) k/uL Hgb 11.2 L (11.4-16.0) gm/dL MCHC 29.9 L (31.0-37.0) g/dL Neutrophils # 10.8 H (1.3-7.7) k/uL Sodium (137-145) mmol/L Chloride (98-107) mmol/L Carbon Dioxide (22-30) mmol/L BUN (7-17) mg/dL Glucose (74-99) mg/dL POC Glucose (mg/dL) 316 H 309 H (75-99) mg/dL 07/03/21 07/03/21 Range/Units 04:20 08:05 WBC (3.8-10.6) k/uL Hgb (11.4-16.0) gm/dL MCHC (31.0-37.0) g/dL Neutrophils # (1.3-7.7) k/uL Sodium 148 H (137-145) mmol/L Chloride 108 H (98-107) mmol/L Carbon Dioxide 34 H (22-30) mmol/L BUN 52 H (7-17) mg/dL Glucose 343 H (74-99) mg/dL POC Glucose (mg/dL) 391 H (75-99) mg/dL Assessment and Plan Plan: Assessment: #1. Acute cardiac arrest. The patient encounter the defibrillator arrest, witnessed, EMS was in the scene and the patient received defibrillation and resuscitation according to the ACLS protocol. The patient has a downtime of mor e than 20 minutes estimated to be around 20-25 minutes per records. Consider underlying development of anoxic encephalopathy. Echo of the heart showed a preserved LV function with concentric LVH and moderate mitral stenosis and moderate to severe pulmonary hypertension. Consider prolongation of QT as a cause for underlying V. fib arrest. Cardiac catheterization showed nonocclusive coronary artery disease. #2. Acute hypoxic respiratory failure secondary to above, requiring intubation and mechanical ventilation, patient was successfully weaned and extubated on 06/28/2021, currently remains on BiPAP support. The patient developed diffuse breath and pulmonary infiltrates right more than left and the patient has significant consolidation lung bases right more than left. Consider aspiration. The patient completed a course of IV Zosyn. Consider a component of fluid overload, over diuretics remain on hold right now in view of hyponatremia #3. Unresponsiveness post cardiac arrest. Consider underlying hypoxic encephalopathy, improved, and patient is currently awake and alert, still confused, brain CT is negative, neurology is following #4. Acute leukocytosis secondary to above, improving, completed a course of Zosyn, blood and sputum cultures have been negative #5. Minimal troponin leak secondary to above. The patient also received CPR #6. Diabetes mellitus type II, insulin-dependent, poorly controlled #7. Hyperlipidemia #8. Right diabetic heel ulcer #9. Elevated d-dimer with no evidence of PE as per CTA #10. History of smoking Plan: Wean Cleviprex Patient has been started on lisinopril, and beta blockers, cardiology is managing Obtain follow-up chest x-ray today Continue with D5W at a rate of 75 ML per hour Continue free water flushes and tube feedings Follow-up labs tomorrow Obtain PICC line today Continue with BiPAP support Maintain aspiration precautions CODE STATUS is DO NOT INTUBATE Transferred to selective care unit today after the PICC line has been inserted and patient is a Cleviprex I performed a history & physical examination of the patient and discussed their management with my nurse practitioner, Gail Brooke. I reviewed the nurse practitioner's note and agree with the documented findings and plan of care. Lung sounds are positive for diminished breath sounds throughout the lung breen. The findings and the impression was discussed with the patient. I attest to the documentation by the nurse practitioner. Time with Patient: Greater than 30
[2021-07-03] MEDS: DEXTROSE 5% IN WATER 1,000 ML IV SCH (11:35)
--- NOTE | 2021-07-03 11:36 | XR ---
EXAMINATION TYPE: XR chest 1V portable DATE OF EXAM: 07/03/2021 COMPARISON: 07/01/2021 INDICATION: Short of breath TECHNIQUE: Single frontal view of the chest is obtained. Patient is rotated to the right FINDINGS: The heart size is normal. The pulmonary vasculature is upper limits of normal. Scattered mild bilateral infiltrates are present slightly in the periphery. Consider atypical pneumon ia within the differential. Some mild volume overload could be considered. Left central venous catheter tip is in the superior vena cava region. Nasogastric tube transverses th e thorax. There is a marker near the level of the sternal clavicular junction. IMPRESSION: 1. Mild worsening peripheral infiltrates. Correlate for volume overload in a typical pneumonia. 2. Lines and catheters discussed above
[2021-07-03 11:52] LABS: Glucose,Whole Blood 382 mg/dL (75-99)
[2021-07-03 13:04] VITALS: BMI 44.7
[2021-07-03 13:37] LABS: Hemoglobin A1C 7.4 % (4.0-6.0)
--- NOTE | 2021-07-03 14:47 | P.PN ---
Subjective Progress Note Date: 07/03/21 Acute cardiac arrest with ventricular fibrillation as per EMS Patient is a 66-year-old female with a known history of diabetes type 2 currently insulin-dependent, right diabetic heel ulcer with MRSA was brought to hospital by EMS after she had cardiac arrest. According to the family patient was sitting in the chair and suddenly went down and family started resuscitation with CPR. Apparently family did CPR for about 8 minutes prior to that. EMS was called and she was found to be in ventricular fibrillation. Patient was shocked once and then she went into PEA. She underwent CPR for about 15 minutes by EMS with return spontaneous circulation. Patient was brought to the ER where she was intubated. Initial vitals blood pressure was 96/50 pulse 96 and respiration 15 and pulse ox 94% on 9% nonrebreather. Chest x-ray showed diffuse increased lung markings in the right lung. Correlate for atypical pulmonary edema and pneumonia. CT head showed no acute intracranial hemorrhage or midline shift. There is mild to moderate diffuse age-related atrophy and mild chronic small vessel ischemic changes noted. CT angiogram showed no evidence of pulmonary embolism. Bilateral multifocal areas of groundglass opacity could reflect edema and/or infiltrates greatest in the upper versus lower lungs and greatest in the right lung. Correlate clinically to exclude COVID-19 infection. Laboratory data showed WBC 23.4 hemoglobin 13.7 and platelets of 234 D-dimer is greater than 34 BUN 20 creatinine 0.99 sodium 137 potassium 4.4 blood sugar is 222, AST 125 ALT 53 and alk phos 117, troponin 0 0.081 and proBNP 339 Patient was seen by cardiology and was taken to cardiac catheterization due to ventricular fibrillation as per EMS and to rule out cardiac etiology. 06/26/2021 Patient was admitted to the hospital status post cardiac arrest and was found to have V. tach. Patient remained intubated and sedated. Patient is being continued amiodarone drip which is being changed to by mouth. Started on oral tube feedings. Patient is status post cardiac catheterization showed mild obstructive disease involving the mid LAD. Right dominance. Normal left ventricular end-diastolic pressure. 2D echocardiogram showed ejection fraction 55 to 60%. Moderate mitral stenosis, moderate pulmonary hypertension with RVSP 54.3, IVC is dilated with no significant inspiratory collapse which is consistent with estimated right atrial pressure of greater than 20 mmHg. Chest x-ray today showed improved aeration of the upper lobes with mild persistent left lower lobe atelectasis. Correlate and follow-up. Laboratory showed WBC trending down to 14.2 hemoglobin 11.8 and platelets 240, BUN 31 creatinine 1.01 and blood sugar is 314 Patient is being continued antibiotics in the form of Zosyn. Continue with insulin sliding scale and Levemir was added. Patient is Levemir 38 units twice daily at home. Pulmonary and cardiology is on board. 9920 Patient is currently on mechanical ventilator. Patient had sedation holiday yesterday but became tachypneic and agitated and was started back on assist control. On sedation now. Patient withdraws with painful stimuli. Chest x-ray showed interstitial changes and cardiomegaly and mild pulmonary vessel congestion. Currently on normal saline at 75 mL per hour. Continued on antibiotics in the form of Zosyn. 2-D echocardiogram report as above. Patient has been afebrile. Tolerating tube feedings. Laboratory data showed WBC trending down to 30.8, hemoglobin 10.4 Sodium 137 potassium 4.1 BUN 31 creatinine 0.9. Pulmonary and neurology on board. 06/28/2021 Patient is on mechanical ventilator. Off sedation. Patient able to blink her eyes sometimes. Not responding to verbal stimulus. On assist control 400 FiO2 40%. PEEP 5. Off pressor support. Patient has been afebrile. Chest x-ray showed Stable portable chest. Laboratory data showed WBC 13.8 hemoglobin 10.1 BUN 29 creatinine 0.88, neurology and pulmonary is on board. 06/29/2021 Patient was extubated today morning. Initially was on BiPAP after extubation and is currently down to oxygen via nasal cannula. Patient is following and instructions with rapid commands. Patient could not speak at this time. Continued on NG tube for nutrition. Patient has been afebrile. Next line chest x-ray showed minimal atelectasis at the right lung base. Laboratory data showed WBC 10.7 hemoglobin 9.8 and platelets 208 sodium 144 potassium 4.0 chloride 111, BUN 30 and creatinine 0.82, blood sugar 159 06/30/2021 Patient is in the MICU. Awake alert and is able to turn her head and follow simple commands. Patient still aphasic. Overnight patient was on BiPAP and currently currently to nasal cannula. Chest x-ray today showed persistent patchy pain right midlung and bibasilar opacities. Right midlung opacity slightly more prominent. Findings consistent with COVID-19 infection. Lab data showed WBC 9.4 hemoglobin 9.5 and platelets 242 lymphocytes 1.2 Sodium 146 potassium 4.2 chloride 112 BUN 38 and creatinine 0.86 and blood sugar is 230 07/01/2021 Patient is seen and examined in follow-up this morning continues to be closely monitored in the ICU. She was having some shortness of breath on high flow with repeat chest x-ray showing cardiomegaly with pulmonary venous congestion and interstitial curly B-lines but may reflect changes of interstitial edema with developing atelectasis or infiltrate of the right lower lobe. Multiple medical consultations following including pulmonary and cardiology and patient was given a dose of IV Lasix today and is currently on BiPAP with settings of rate of 10 with inspiratory pressure of 12 expiratory pressure of 6 and FiO2 45% maintaining 95% oxygen saturation. Patient is awake and responding to voice and following simple commands although is aphasic. White blood count is 13.9 and hemoglobin is 10.9, sodium is elevated at 151 with a potassium of 4.2, chloride is 114, current creatinine is 0.74. BNP is 1550. Patient continues on Accu-Cheks and sliding-scale along with long-acting and will continue to monitor closely. 07/02/2021 Patient is seen in follow-up being closely monitored in the ICU. Patient continues to have some shortness of breath and difficulty in breathing and continues on BiPAP although was tolerating liters nasal cannula high flow and pulmonary following closely. Patient continues on cleviprex for tight blood pr essure control. Patient was on Lovenox and being transitioned oral anticoagulant of eliquis. Sodium continues to be elevated at 152 and will continue with increased free water flushes with tube feedings and we'll transition IV fluids to D5 in water gentle and will continue to closely monitor. Sugars have been elevated and will continue with Accu-Cheks every 4 along with sliding scale and long-acting insulin. White blood count is 14.6 today and hemoglobin is 10.8. Patient is afebrile. Neurology following and repeat CT of the brain was done showing mild cerebral atrophy with no acute intracranial abnormality and no changes noted from previous. Patient is alert and oriented 1-2 and following simple commands but continues to have difficulty in speaking and finding the words to say. 07/03/2021 Patient is seen in follow-up this morning continues to be in the ICU and continues on BiPAP with chest x-ray today showing mild worsening of the peripheral infiltrates and correlate for volume overload in a typical pneumonia. Patient continues on D5 in water sodium trending down at 148 with a potassium of 4.2 current creatinine is 0.72 and blood sugars have been increasingly elevated in the high 300s and will continue with sliding scale and have increased Levemir to 35 units twice daily and will monitor closely. Patient also continues on Cleviprex his blood pressure continues to be elevated. Lopressor also being increased. Current medications reviewed. Active Medications Amiodarone HCl (Amiodarone 200 Mg Tab) 200 mg PO BID [facility] Last Admin: 07/03/21 09:23 Dose: 200 mg Documented by: Apixaban (Apixaban 5 Mg Tab) 5 mg PO BID [facility]; Protocol Last Admin: 07/03/21 09:23 Dose: 5 mg Documented by: Atorvastatin Calcium (Atorvastatin 40 Mg Tab) 40 mg PO DAILY [facility] Last Admin: 07/03/21 09:23 Dose: 40 mg Documented by: Haloperidol Lactate (Haloperidol Lactate 5 Mg/Ml 1 Ml Vial) 2 mg IVP Q6HR PRN PRN Reason: Agitation or Acute Psychosis Last Admin: 06/30/21 20:25 Dose: 2 mg Documented by: Clevidipine 25 mg/ IV Solution 50 mls @ 2 mls/hr IV .Q24H [facility]; Protocol Last Titration: 07/03/21 13:42 Dose: 4 mg/hr, 8 mls/hr Documented by: Dextrose/Water (Dextrose 5%-Water Iv Soln) 1,000 mls @ 75 mls/hr IV .[id number] [facility] Last Admin: 07/03/21 11:35 Dose: 75 mls/hr Documented by: Insulin Aspart (Insulin Aspart (Novolog) 100 Unit/Ml Vial) 0 unit SQ Q4HR [facility]; Protocol Last Admin: 07/03/21 12:08 Dose: 11 unit Documented by: Insulin Detemir (Insulin Detemir (Levemir) 100 Unit/Ml Syr) 35 unit SQ BID@0700,2100 [facility] Lisinopril (Lisinopril 20 Mg Tab) 20 mg PO DAILY [facility] Last Admin: 07/03/21 09:23 Dose: 20 mg Documented by: Metoprolol Tartrate (Metoprolol Tartrate 50 Mg Tab) 50 mg PO BID [facility] Last Admin: 07/03/21 09:23 Dose: 50 mg Documented by: Nitroglycerin (Nitroglycerin Sl Tabs 0.4 Mg Tab) 0.4 mg SUBLINGUAL Q5M PRN PRN Reason: Chest Pain PHYSICAL EXAMINATION: Patient is sitting in the bed comfortably, no acute distress, awake at times but unable to speak and extremely lethargic and not following commands... HEENT: Normocephalic. Neck is supple. Pupils reactive. Nostrils clear. Oral cavity is moist. NG tube in place. BiPAP noted Neck reveals no JVD, carotid bruits, or thyromegaly. CHEST EXAMINATION: Trachea is central. Symmetrical expansion. bibasilar crackles noted. CARDIAC: Normal S1, S2 with no gallops. No murmurs ABDOMEN: Soft. Bowel sounds normal. No organomegaly. No abdominal bruits. Extremities: reveal no edema. No clubbing or cyanosis Neurologically patient is awake although extremely lethargic. Unable to communicate.. No gross focal deficits noted, diffusely weak Skin: No rash or skin lesions. Psychiatric: Cooperative. Musculoskeletal: No joint swelling or deformity. Assessment: Acute encephalopathy status post cardiac arrest. Acute cardiac arrest with ventricular fibrillation as per EMS.Downtime approximately 25 to 30 minutes. Possible anoxic encephalopathy is being considered. Acute hypoxic respiratory failure Secondary to above. Patient is extubated and continues on BiPAP hypernatremia, will add increased free water flushes with feedings and repeat am labs, 148 today and will continue D5 in water and repeat labs Possible right lower lobe aspiration pneumonia. Ruled out COVID-19 infection Elevated D-dimer level with no evidence of PE as per CTA Diabetes type 2 insulin-dependent, uncontrolled with hyperglycemia, continue with Accu-Cheks every 4 along with sliding scale and long-acting and increase the dose of long-acting and will continue to monitor History of smoking Morbid obesity BMI 42.4 Right heel Diabetic foot ulcer with clean base. No purulent drainage noted. DVT prophylaxis, initiating eliquis although being held as PICC line is ordered No code Plan: Patient continues to be closely monitored in the ICU. Neurology following along with pulmonary and cardiology. Sodium slightly improved at 148 today and will continue free water flushes and continue a gentle IV hydration with D5 in water and repeat a.m. labs. PT/OT to evaluate the patient once more stable for possibility of ECF placement. Social work is following as well. Patient continues on IV antibiotics in the form of zosyn and WBC is elevated at 13.7. Patient also continues on Cleviprex for blood pressure control. continue to monitor accuchecks continue with sliding scale and long-acting and will increase long-acting dose. will repeat am labs. Prognosis is guarded. CODE STATUS was changed to no code. Objective - Vital Signs Vital signs: Vital Signs Temp 98.2 F 07/03/21 04:00 Pulse 75 07/03/21 06:00 Resp 27 H 07/03/21 06:00 BP 124/67 07/03/21 06:00 Pulse Ox 90 L 07/03/21 06:00 Intake & Output 07/02/21 07/03/21 07/03/21 18:59 06:59 18:59 Intake Total 2527.200 1957.433 Output Total 750 550 Balance 8772.758 3441.433 Weight 129.7 kg Intake: IV 744 900 A line flush 9 Dextrose 5% in Water 1, 675 900 000 ml @ 75 mls/hr IV . [id number] [facility] Rx#:[id number] Sodium Chloride 0.9% 1, 60 000 ml @ 20 mls/hr IV . Q24H [facility] Rx#:[id number] Intake, IV Titration 163.200 217.433 Amount Clevidipine Butyrate 25 163.200 217.433 mg In Empty Bag 1 bag @ 1 MG/HR 2 mls/hr IV .Q24H [facility] Rx#:[id number] Tube Feeding 720 720 Other 900 120 Output: Urine 750 550 Other: Voiding Method External Catheter External Catheter # Voids 1 ABP, PAP, CO, CI - Last Documented Arterial Blood Pressure 158/63 - Labs CBC & Chem 7: 07/03/21 04:20 07/03/21 04:20 Labs: Abnormal Lab Results - Last 24 Hours (Table) 07/02/21 07/02/21 07/02/21 Range/Units 08:10 11:22 16:19 WBC (3.8-10.6) k/uL Hgb (11.4-16.0) gm/dL MCHC (31.0-37.0) g/dL Neutrophils # (1.3-7.7) k/uL Sodium 152 H (137-145) mmol/L Chloride 112 H (98-107) mmol/L Carbon Dioxide 33 H (22-30) mmol/L BUN 51 H (7-17) mg/dL Glucose 303 H (74-99) mg/dL POC Glucose (mg/dL) 264 H 295 H (75-99) mg/dL 07/02/21 07/03/21 07/03/21 Range/Units 20:25 01:20 03:42 WBC (3.8-10.6) k/uL Hgb (11.4-16.0) gm/dL MCHC (31.0-37.0) g/dL Neutrophils # (1.3-7.7) k/uL Sodium (137-145) mmol/L Chloride (98-107) mmol/L Carbon Dioxide (22-30) mmol/L BUN (7-17) mg/dL Glucose (74-99) mg/dL POC Glucose (mg/dL) 276 H 316 H 309 H (75-99) mg/dL 07/03/21 07/03/21 07/03/21 Range/Units 04:20 04:20 08:05 WBC 13.7 H (3.8-10.6) k/uL Hgb 11.2 L (11.4-16.0) gm/dL MCHC 29.9 L (31.0-37.0) g/dL Neutrophils # 10.8 H (1.3-7.7) k/uL Sodium 148 H (137-145) mmol/L Chloride 108 H (98-107) mmol/L Carbon Dioxide 34 H (22-30) mmol/L BUN 52 H (7-17) mg/dL Glucose 343 H (74-99) mg/dL POC Glucose (mg/dL) 391 H (75-99) mg/dL
[2021-07-03 16:04] LABS: Glucose,Whole Blood 320 mg/dL (75-99)
--- NOTE | 2021-07-03 17:24 | P.PN ---
Subjective Progress Note Date: 07/03/21 The patient seen at bedside and per the patient nurse her condition and is about the same. Per the patient nurse she does not follow commands but she'll move her upper extremities purposefully. She remain on BiPAP. Patient sugar remains to be in the 300s. Objective - Vital Signs Vital signs: Vital Signs Temp 97.8 F 07/03/21 16:00 Pulse 61 07/03/21 17:00 Resp 24 07/03/21 17:00 BP 133/57 07/03/21 17:00 Pulse Ox 97 07/03/21 17:00 Intake & Output 07/02/21 07/03/21 07/03/21 18:59 06:59 18:59 Intake Total 2527.200 6865.391 8380.700 Output Total 588 421 8067 Balance 6897.391 7369.433 954.700 Weight 129.7 kg 129.7 kg Intake: IV 744 900 825 A line flush 9 Dextrose 5% in Water 1, 675 900 825 000 ml @ 75 mls/hr IV . [id number] [facility] Rx#:[id number] Sodium Chloride 0.9% 1, 60 000 ml @ 20 mls/hr IV . Q24H [facility] Rx#:[id number] Intake, IV Titration 163.200 217.433 94.700 Amount Clevidipine Butyrate 25 163.200 217.433 94.700 mg In Empty Bag 1 bag @ 1 MG/HR 2 mls/hr IV .Q24H [facility] Rx#:[id number] Tube Feeding 720 720 485 Other 900 120 650 Output: Urine 447 379 5935 Other: Voiding Method External Catheter External Catheter External Catheter # Voids 1 ABP, PAP, CO, CI - Last Documented Arterial Blood Pressure 158/63 - Exam Gen.: The patient is reclining in the bed and does not seem in acute distress. The patient is receiving BiPAP. Lung: The BiPAP mask was taken off for examination briefly. Neurological examination Mental status: The patient is awake but not does verbalized. She is follow one command (wiggle left toe). Otherwise not following commands or communicating. Cranial nerves: Pupils are equal, round and reactive to light. EOM is tracks throughout the room and no nystagmus. There is no obvious facial asymmetry. Motor: Patient is moving bilateral upper extremities above gravity and attempting to remote the NG tube. She had left hand program proposals coordinator (3-4) and then hand program proposals coordinator over the right hand 2-3. The lower she moves side to side on bed and was wiggling left toe. She had decrease tone throughout. Sensation: Could not assess. Reflexes: 1+ throughout except right biceps is 2+. WORK-UP: * EEG was performed, which revealed background slowing of moderate to severe degree, suggestive of encephalopathy. No epileptiform activity was seen. * 2-D echo showed severe concentric LVH. EF between 55-60%. Aortic valve is t rileaflet and is mildly thickened. * CT head showed no acute intracranial hemorrhage or midline shift. There is mild to moderate diffuse age-related cerebral atrophy and mild chronic small vessel ischemic change. * Repeat CT of the head on 07/01/2021 is reported as mild cerebral atrophy. No acute intracranial abnormality. No change. - Labs CBC & Chem 7: 07/03/21 04:20 07/03/21 04:20 Labs: Abnormal Lab Results - Last 24 Hours (Table) 07/02/21 07/03/21 07/03/21 Range/Units 20:25 01:20 03:42 WBC (3.8-10.6) k/uL Hgb (11.4-16.0) gm/dL MCHC (31.0-37.0) g/dL Neutrophils # (1.3-7.7) k/uL Sodium (137-145) mmol/L Chloride (98-107) mmol/L Carbon Dioxide (22-30) mmol/L BUN (7-17) mg/dL Glucose (74-99) mg/dL POC Glucose (mg/dL) 276 H 316 H 309 H (75-99) mg/dL Hemoglobin A1c (4.0-6.0) % 07/03/21 07/03/21 07/03/21 Range/Units 04:15 04:20 04:20 WBC 13.7 H (3.8-10.6) k/uL Hgb 11.2 L (11.4-16.0) gm/dL MCHC 29.9 L (31.0-37.0) g/dL Neutrophils # 10.8 H (1.3-7.7) k/uL Sodium 148 H (137-145) mmol/L Chloride 108 H (98-107) mmol/L Carbon Dioxide 34 H (22-30) mmol/L BUN 52 H (7-17) mg/dL Glucose 343 H (74-99) mg/dL POC Glucose (mg/dL) (75-99) mg/dL Hemoglobin A1c 7.4 H (4.0-6.0) % 07/03/21 07/03/21 07/03/21 Range/Units 08:05 11:50 16:02 WBC (3.8-10.6) k/uL Hgb (11.4-16.0) gm/dL MCHC (31.0-37.0) g/dL Neutrophils # (1.3-7.7) k/uL Sodium (137-145) mmol/L Chloride (98-107) mmol/L Carbon Dioxide (22-30) mmol/L BUN (7-17) mg/dL Glucose (74-99) mg/dL POC Glucose (mg/dL) 391 H 382 H 320 H (75-99) mg/dL Hemoglobin A1c (4.0-6.0) % Assessment and Plan Assessment: Anoxic encephalopathy status post cardiac arrest. Also component of altered mental status due to metabolic with the glucose in the 300s recently and her sodium is 151-->148 because of her hypoxia. Acute cardiac arrest and downtown more than 20 minutes and it was estimated between the 20-25 minutes per record. Acute hypoxic respiratory failure due to acute cardiac arrest Diabetes mellitus and currently sugar in 300's. Hemoglobin A1c of 7.4. History of COPD History of hypertension Plan: PT, OT and HOOP MAKER HELPER MACHINE are consulted. We'll defer the patient's elevated sugar level to the primary/ICU team. We'll defer the rest of the medical management to the primary/ICU team. Condition is very guarded. The plan was discussed with the patient ICU nurse. I personally spoke with patient's son regarding the patient's condition. Will follow-up with patient sporadically. Henri Solano M.D. Neuro-hospitalist Time with Patient: Less than 30
[2021-07-03 19:42] LABS: Glucose,Whole Blood 281 mg/dL (75-99)
[2021-07-04 00:24] LABS: Glucose,Whole Blood 213 mg/dL (75-99)
[2021-07-04] MEDS: INSULIN ASPART (NovoLOG) 100 UNIT/ML VIAL SQ SCH ×6 (00:26→20:16)
[2021-07-04] MEDS: DEXTROSE 5% IN WATER 1,000 ML IV SCH ×2 (01:07→10:36)
[2021-07-04 04:08] LABS: Glucose,Whole Blood 188 mg/dL (75-99)
[2021-07-04 04:38] LABS: Basophils # (A) 0.1 k/uL (0-0.2); Basophils % (A) 1 %; Eosinophils # (A) 0.4 k/uL (0-0.7); Eosinophils % (A) 3 %; HCT 37.3 % (34.0-46.0); HGB 11.7 gm/dL (11.4-16.0); Hypochromasia Moderate; Lymphocytes # (A) 2.1 k/uL (1.0-4.8); Lymphocytes % (A) 14 %; MCH 29.1 pg (25.0-35.0); MCHC 31.3 g/dL (31.0-37.0); MCV 93.2 fL (80.0-100.0); Monocytes # (A) 0.7 k/uL (0-1.0); Monocytes % (A) 4 %; Neutrophils # (A) 11.6 k/uL (1.3-7.7); Neutrophils % (A) 78 %; Platelet Count 346 k/uL (150-450); RDW 14.7 % (11.5-15.5)
[2021-07-04 04:42] LABS: Prothrombin Time 10.9 sec (9.0-12.0)
[2021-07-04] MEDS ORDERED: FUROSEMIDE 10 MG/ML 4 ML VIAL IV STA (05:04)
[2021-07-04 06:43] LABS: ALT 29 U/L (4-34); AST 27 U/L (14-36); African American GFR (CKD) >90 (>60 ml/min/1.73 sqM); Albumin 3.2 g/dL (3.5-5.0); Alkaline Phosphatase 112 U/L (38-126); Anion Gap 10 mmol/L; Blood Urea Nitrogen 51 mg/dL (7-17); Calcium 9.5 mg/dL (8.4-10.2); Carbon Dioxide 27 mmol/L (22-30); Chloride 106 mmol/L (98-107); Glucose 196 mg/dL (74-99); Non-African American GFR(CKD) 80 (>60 ml/min/1.73 sqM); Potassium 4.9 mmol/L (3.5-5.1); Sodium 143 mmol/L (137-145); Total Bilirubin 0.5 mg/dL (0.2-1.3); Total Protein 6.2 g/dL (6.3-8.2)
--- NOTE | 2021-07-04 07:48 | XR ---
EXAMINATION TYPE: XR chest 1V portable DATE OF EXAM: 07/04/2021 Comparison: 07/03/2021 Clinical History: 66-year-old female BiPAP Findings: Metallic BB redemonstrated projecting at the level of the sternal notch. Left CVC tip at the mid to l ower SVC. NG tube courses below the diaphragm. There are sidehole is just below the GE junction level . Heart remains mildly enlarged. Interstitial opacities persist. David B lines are noted as seen pre viously. There may be slight increase in small layering bilateral pleural effusions given semiupright positioning. Impression: 1. Correlate for ongoing CHF with pulmonary vascular congestion. 2. Recurrent semiupright positioning shows small layering pleural effusions with adjacent atelectasis and/or consolidation.
[2021-07-04 08:09] LABS: Glucose,Whole Blood 188 mg/dL (75-99)
[2021-07-04] MEDS ORDERED: FUROSEMIDE 10 MG/ML 10 ML VIAL IV STA (09:12)
[2021-07-04] MEDS: INSULIN DETEMIR (LEVEMIR) 100 UNIT/ML SYR SQ SCH ×2 (10:33→20:37)
[2021-07-04] MEDS: ATORVASTATIN 40 MG TAB PO SCH (10:34)
[2021-07-04] MEDS: AMIODARONE 200 MG TAB PO SCH ×2 (10:34→20:36)
[2021-07-04] MEDS: lisinopriL 20 MG TAB PO SCH (10:35)
[2021-07-04] MEDS: METOPROLOL TARTRATE 50 MG TAB PO SCH ×2 (10:35→20:36)
--- NOTE | 2021-07-04 11:45 | P.PN ---
Subjective This is a pleasant 66 showed female who presented with cardiac arrest with V. fib status post cardioversion. She is currently on BiPAP. She is opening her eyes and attempting to communicate but is not making any sense. Telemetry tracings reveal persistent sinus mechanism with no further episodes of ventricular arrhythmia. Blood pressure 150/52 heart rate 88 afebrile maintaining oxygen saturation on BiPAP. Laboratory data reviewed, WBC 13.9, hemoglobin 10.9, platelets 265, sodium 151, potassium 4.2, creatinine 0.74. Currently maintained on amiodarone 200 mg twice a day, aspirin 81 mg daily, atorvastatin 40 mg daily, metoprolol 25 mg twice a day and Cleviprex infusion. She was also given one dose of IV diuretics this morning per pulmonary. Chest x-ray this morning reveals pulmonary venous congestion with interstitial edema noted. Developing atelectasis or infiltrate noted in the right lower lobe. She continues to be maintained on IV antibiotics as well. 07/04/2021 Pt is seen and examined sitting up in bed on bipap. She apparently was trialed on nasal cannula but did not do well and required bipap to be replaced. Blood pressure 152/72 heart rate 62 afebrile maintaining oxygen saturation. Laboratory data reviewed, WBC 15, hemoglobin 11.7, platelets 346, sodium 143, potassium 4.9, creatinine 0.78. Eliquis is currently on hold pending PIC line placement. Chest x-ray this morning reveals ongoing pulmonary vascular congestion. GENERAL: on Bipap in no acute distress, somnolent NECK: Supple without JVD or thyromegaly. LUNGS: Breath sounds clear to auscultation bilaterally. Respiration equal and unlabored. No wheezes, rales or rhonchi. HEART: Regular rate and rhythm without murmurs, rubs or gallops. S1 and S2 heard. EXTREMITIES: Normal range of motion, no edema. No clubbing or cyanosis. Peripheral pulses intact. ASSESSMENT Status post cardiac arrest and defibrillation Ventricular fibrillation Respiratory failure Anoxic encephalopathy Pneumonia, suspect aspiration Paroxysmal atrial fibrillation with rapid ventricular response. Converted to SR. Leukocytosis Diabetes mellitus Dyslipidemia Hypernatremia PLAN Continue current medical regimen. Starting tomorrow we will decrease amiodarone to daily. Resume Eliquis after PICC line is placed. Further recommendations to follow based upon clinical course. Nurse Practitioner note has been reviewed, I agree with a documented findings and plan of care. Patient was seen and examined. Objective - Vital Signs Vital signs: Vital Signs Temp 97.2 F L 07/04/21 04:00 Pulse 62 07/04/21 07:00 Resp 31 H 07/04/21 07:00 BP 152/72 07/04/21 07:00 Pulse Ox 92 L 07/04/21 07:00 Intake & Output 07/03/21 07/04/21 07/04/21 18:59 06:59 18:59 Intake Total 2156.433 2210.8 Output Total 1300 850 Balance 221.792 8391.8 Weight 129.7 kg 128.14 kg Intake: IV 900 975 Dextrose 5% in Water 1, 900 975 000 ml @ 75 mls/hr IV . [id number] [facility] Rx#:[id number] Intake, IV Titration 96.433 10.8 Amount Clevidipine Butyrate 25 96.433 10.8 mg In Empty Bag 1 bag @ 1 MG/HR 2 mls/hr IV .Q24H [facility] Rx#:[id number] Tube Feeding 510 325 Other 650 900 Output: Urine 1300 850 Other: Voiding Method External Catheter External Catheter # Voids 1 ABP, PAP, CO, CI - Last Documented Arterial Blood Pressure 158/63 - Labs CBC & Chem 7: 07/04/21 04:16 07/04/21 04:16 Labs: Abnormal Lab Results - Last 24 Hours (Table) 07/03/21 07/03/21 07/03/21 Range/Units 04:15 11:50 16:02 WBC (3.8-10.6) k/uL Neutrophils # (1.3-7.7) k/uL BUN (7-17) mg/dL Glucose (74-99) mg/dL POC Glucose (mg/dL) 382 H 320 H (75-99) mg/dL Hemoglobin A1c 7.4 H (4.0-6.0) % Total Protein (6.3-8.2) g/dL Albumin (3.5-5.0) g/dL 07/03/21 07/04/21 07/04/21 Range/Units 19:41 00:22 04:07 WBC (3.8-10.6) k/uL Neutrophils # (1.3-7.7) k/uL BUN (7-17) mg/dL Glucose (74-99) mg/dL POC Glucose (mg/dL) 281 H 213 H 188 H (75-99) mg/dL Hemoglobin A1c (4.0-6.0) % Total Protein (6.3-8.2) g/dL Albumin (3.5-5.0) g/dL 07/04/21 07/04/21 07/04/21 Range/Units 04:16 04:16 08:08 WBC 15.0 H (3.8-10.6) k/uL Neutrophils # 11.6 H (1.3-7.7) k/uL BUN 51 H (7-17) mg/dL Glucose 196 H (74-99) mg/dL POC Glucose (mg/dL) 188 H (75-99) mg/dL Hemoglobin A1c (4.0-6.0) % Total Protein 6.2 L (6.3-8.2) g/dL Albumin 3.2 L (3.5-5.0) g/dL
[2021-07-04] MEDS ORDERED: LIDOCAINE 1% INJ 10MG/ML (20 ML MDV) SQ ONE (12:20)
[2021-07-04] MEDS ORDERED: IPRATROPIUM-ALBUTEROL 3 ML NEB INHALATION PRN (12:37)
--- NOTE | 2021-07-04 12:37 | P.PN ---
Subjective Progress Note Date: 07/04/21 Principal diagnosis: Cardiac arrest and anoxic brain injury Today's evaluation on 06/27/2021 patient seen in the intensive care unit, yesterday she was given sedation holiday during which she became very anxious, agitated, however she remained nonpurposeful, she became very tachypneic and noncompliant with the ventilator, she was back on assist control mode of ventilation overnight. This morning she remains sedated, intubated on assist control mode of ventilation with a rate of 20, tidal emesis 400, FiO2 of 40% and PEEP of 5. This morning's blood gas shows pO2 of 77, pCO2 of 47, and PEEP of 5, this was done on the above mentioned settings. A chest x-ray shows cardiom egaly, and interstitial changes, mild pulmonary vascular congestion, with interval clearing of the previous opacity at the left lung base, and increased mild patchy density at the right base. Patient remains on Zosyn for empiric antibiotic coverage, she has had no fever or chills overnight, hemodynamically she is much more stable, she has been off pressors since yesterday, she is currently on 0.9 within a rate of 75 ML per hour, Diprivan and is at 25 mics per kilo per minute, and note that the patient has only required minimal sedation, and her sedation has been at 25 mics per kilo per minute of the program all along. Her pulse ox is 96%. Is in sinus mechanism with a rate of 63, no report ed arrhythmias overnight, cardiology is following, patient is status post cardiac catheterization, with no evidence of acute ischemic coronary artery disease, and patient is on medical therapy per cardiology recommendations. Her troponins peaked at 0.473 with a second troponin, her last set of troponins were yesterday at 5:00 in the morning with a troponin of 0.435. Echocardiogram has been completed showing preserved LV function with EF of 55-60%, severe concentric LVH, moderate mitral stenosis, mild tricuspid regurgitation, moderate pulmonary hypertension with right-sided pressure of 54.3 mmHg. There was a small generalized pericardial effusion present. VC was dilated with no significant inspiratory collapse consistent with estimated right-sided atrial pressure of greater than 20 mg of mercury. Neurologically patient is quite sedated on 25 mics of the prevent, she withdraws to painful stimuli, she does move all 4 extremities, she breathes over the vent, does have a positive gag, negative Babinski. Today's labs have been reviewed, white blood cell count is improving and is down to 13.8, hemoglobin is 10.4. No Other acute events overnight. On 06/28/2021 patient is seen in follow-up in the intensive care unit, she remains sedated and intubated on mechanical ventilator, currently on assist control mode of ventilation with a rate of 20, tidal volume 400, FiO2 of 40% and PEEP of 5, this morning's blood gas shows pO2 of 97, pCO2 50, pH is 7.35, and this was done on the above mentioned settings. She is currently on Diprivan at 15 mics per kilo per minute, and 0.9 normal saline at a rate of 10 ML per hour, no other drips. No vasopressor support, she is hemodynamically stable, she is in sinus mechanism with a controlled rate. Today's chest x-ray has been reviewed showing mild right infrahilar patchy density, which is stable in appearance. Today's labs have been reviewed, her white count is stable at 13.8, overall did improve since admission, hgb is 10.1, platelet count is 242, sodium is 142, potassium is 4.3, chloride is 109, BUN is 29, creatinine 0.88. 2 feed ings have not been started yet, however will be started with vital AF formula at a rate of 20 with a goal of 60 ML per hour with standard water flushes. Yesterday patient was quiet deeply sedated, we held her sedation most of the day, she did go on Precedex at a low dose, and patient never actually appropriately woke up and followed commands, and in the evening she became quite restless, dyssyncronous with the ventilator, and Precedex was discontinued and she was placed back on Diprivan overnight at a low dose. This morning she does open her eyes to voice, she makes brief eye contact, she drifts back to sleep, he is not following commands yet, however her level of consciousness is improved , she is less sedated. Vital signs have been stable, she's been afebrile, blood pressure has been stable, no arrhythmias overnight. Output has been adequate in the order of 40-100 ML per hour. No other acute events overnight. We'll proceed with another sedation holiday today. Reevaluated today on 06/29/2021, patient remains in the ICU, she was extubated yesterday, she is on BiPAP 12/6 and 40% FiO2. I will transition the patient to a nasal cannula and see if tolerated. I will discontinue her Precedex today, she is presently on 0.2, patient is awake, she does follow simple instructions like closing eyes, sticking out tongue, wiggling toes, squeezing hands, remains nonverbal. Dramatic improvement in her neurological status today compared to yesterday. Chest x-ray showing minimal atelectasis especially at the right base. Patient was seen by neurology yesterday, and she was noted to have some meaningful clinical response. Hence this is favoring a good prognosis in spite of the acute anoxic brain injury. ABC today is relatively unremarkable, basic metabolic profile is normal, renal profile is normal. Patient remains on amiodarone, aspirin, atorvastatin, Lovenox, insulin, metoprolol, and she is empirically on Zosyn. Reevaluated today on 06/30/2021, patient remains in the ICU, she was successfully extubated 2 days ago, and she remains on BiPAP. She is on 12/6 and 40% FiO2. She was transitioned to a nasal cannula, but she did not tolerated well. Hence she had to be placed back on BiPAP. Intermittently has been getting agitated, requiring Precedex, and today our recommend Haldol, and possibly Ativan at night. Patient is about the same neurologically, she is not verbal, but she seems to be awake and follows simple instructions. CBC is relatively normal electrolytes are normal renal profile is normal. Chest x-ray showed patchy faint right midlung and baby basilar opacities. Possibly atelectasis Reevaluated today on 07/01/21, patient remains in the ICU, she was earlier on 6 L nasal cannula, however she was noted to be working hard to breathe, and I recommended immediate switching the patient to BiPAP. As soon as she was placed on BiPAP, patient was noted to be more comfortable. Patient remains about the same, she is encephalopathic, she is noted to have significant work of breathing, she is hemodynamically stable, she is on clevidipine at 8 mg per hour. And she is now on BiPAP 12/6/45% patient is receiving enteral feeding vital AF 60/60. Reevaluated today on 07/04/2021, patient remains in the ICU, she seems to be getting clinically worse, her work of breathing seems to be more, patient had to have higher settings on her BiPAP, and she is requiring more FiO2. Chest x-ray today showed evidence of worsening interstitial edema or infiltrates. Hence I recommended Lasix, and she was given Lasix earlier. Not a significant urine output noted. Patient remains very encephalopathic. Patient opens eyes, but today she doesn't seem to be following any instructions. The pressure today is 150/52, heart rate is 88. Labs were reviewed, sodium seems to be a bit elevated at 151. Renal profile is relatively normal. Remains on multiple cardiac meds including amiodarone. Also on the chest x-ray, patient is developing bibasilar atelectasis, possible infiltrates in the bases. In addition to her interstitial edema. Considering the worsening of her clinical status, I am suggesting discussing her CODE STATUS again with the family and possibly consider comfort care measures. She is presently DO NOT RESUSCITATE CODE STATUS. Objective - Vital Signs Vital signs: Vital Signs Temp 97.2 F L 07/04/21 04:00 Pulse 62 07/04/21 07:00 Resp 31 H 07/04/21 07:00 BP 152/72 07/04/21 07:00 Pulse Ox 92 L 07/04/21 07:00 Intake & Output 07/03/21 07/04/21 07/04/21 18:59 06:59 18:59 Intake Total 2156.433 2210.8 Output Total 1300 850 Balance 508.060 8163.8 Weight 129.7 kg 128.14 kg Intake: IV 900 975 Dextrose 5% in Water 1, 900 975 000 ml @ 75 mls/hr IV . [id number] [facility] Rx#:[id number] Intake, IV Titration 96.433 10.8 Amount Clevidipine Butyrate 25 96.433 10.8 mg In Empty Bag 1 bag @ 1 MG/HR 2 mls/hr IV .Q24H [facility] Rx#:[id number] Tube Feeding 510 325 Other 650 900 Output: Urine 1300 850 Other: Voiding Method External Catheter External Catheter # Voids 1 ABP, PAP, CO, CI - Last Documented Arterial Blood Pressure 158/63 - Exam Gen.: Reveals 66-year-old female , in mild respiratory distress, on BiPAP. Seems to be working harder to breathe today compared to the previous few days. HEENT: Normocephalic. Neck is supple. Pupils reactive. Nostrils clear. Oral cavity is moist. Dry mucous membranes noted. Neck reveals no JVD, carotid bruits, or thyromegaly. CHEST EXAMINATION: Diminished breath sounds at the bases, crackles or rhonchi and wheezes noted bilaterally. CARDIAC: Normal S1 and S2, no S3 gallop, no murmur. ABDOMEN: Soft. Bowel sounds normal. No organomegaly. No abdominal bruits. Extremities:no Clubbing edema or cyanosis. Neurologically . Awake, opens eyes, does not follow any instructions. Patient is quite encephalopathic. Psychiatric: Could not assess. Musculoskeletal: No joint swelling or deformity. Normal range of motion. Came: No rashes - Labs CBC & Chem 7: 07/04/21 04:16 07/04/21 04:16 Labs: Abnormal Lab Results - Last 24 Hours (Table) 07/03/21 07/03/21 07/03/21 Range/Units 04:15 16:02 19:41 WBC (3.8-10.6) k/uL Neutrophils # (1.3-7.7) k/uL BUN (7-17) mg/dL Glucose (74-99) mg/dL POC Glucose (mg/dL) 320 H 281 H (75-99) mg/dL Hemoglobin A1c 7.4 H (4.0-6.0) % Total Protein (6.3-8.2) g/dL Albumin (3.5-5.0) g/dL 07/04/21 07/04/21 07/04/21 Range/Units 00:22 04:07 04:16 WBC 15.0 H (3.8-10.6) k/uL Neutrophils # 11.6 H (1.3-7.7) k/uL BUN (7-17) mg/dL Glucose (74-99) mg/dL POC Glucose (mg/dL) 213 H 188 H (75-99) mg/dL Hemoglobin A1c (4.0-6.0) % Total Protein (6.3-8.2) g/dL Albumin (3.5-5.0) g/dL 07/04/21 07/04/21 Range/Units 04:16 08:08 WBC (3.8-10.6) k/uL Neutrophils # (1.3-7.7) k/uL BUN 51 H (7-17) mg/dL Glucose 196 H (74-99) mg/dL POC Glucose (mg/dL) 188 H (75-99) mg/dL Hemoglobin A1c (4.0-6.0) % Total Protein 6.2 L (6.3-8.2) g/dL Albumin 3.2 L (3.5-5.0) g/dL Assessment and Plan Assessment: #1. Acute cardiac arrest. The patient encounter the defibrillator arrest, witnessed, EMS was in the scene and the patient received defibrillation and resuscitation according to the ACLS protocol. The patient has a downtime of more than 20 minutes estimated to be around 20-25 minutes per records. Consider underlying development of anoxic encephalopathy. Echo of the heart showed a preserved LV function with concentric LVH and moderate mitral stenosis and moderate to severe pulmonary hypertension. Consider prolongation of QT as a cause for underlying V. fib arrest. Cardiac catheterization showed nonocclusive coronary artery disease. #2. Acute hypoxic respiratory failure secondary to above. The patient developed diffuse breath and pulmonary infiltrates right more than left and the patient has significant consolidation lung bases right more than left. Consider asp iration. Finished a full course of Zosyn, however considering the worsening, will restart Zosyn again, and I recommend diuretics. #3. anoxic brain injury, neurological status is worsening again. And this is clearly anoxic brain injury and acute metabolic encephalopathy #4. persistent leukocytosis most likely secondary to aspiration pneumonia, will place the patient back on Zosyn. #5. Minimal troponin leak secondary to above. The patient also received CPR #6. Diabetes mellitus. #7. Hyperlipidemia #8 paroxysmal atrial fibrillation with RVR #9 hypernatremia secondary to free water deficit Recommendation: Continue BiPAP, Diuretics, Bronchodilators, Need to readdress CODE STATUS and possibly comfort care measures with the family. Prognosis is extremely poor considering her anoxic brain injury and no significant neurological recovery noted in the last few days. Continue to monitor the patient in the ICU. Continue to monitor neurologically and cardiac-liao. Continue GI and DVT prophylaxis. Continue to monitor in the ICU. Prognosis remains relatively guarded. Strongly suggest discussing her status with the family again and possibly go with comfort care measures. Critical care time is over 30 minutes. Time with Patient: Greater than 30
--- NOTE | 2021-07-04 12:51 | IR ---
EXAMINATION TYPE: IR cvc insert >=5 years DATE OF EXAM: 07/04/2021 COMPARISON: NONE HISTORY: Infection, needs long-term intravenous access for therapy FINDINGS: Maximal barrier technique was utilized. Hand hygiene obtained with soap and water and alco hol-based hand rub. The skin overlying the right basilic vein was localized with ultrasound and noted to be compressible and patent by ultrasound. An ultrasound image was obtained and submitted on carl ent's chart. Sterile technique utilized with the ultrasound machine. The skin overlying was prepped a nd draped and Lidocaine used for local anesthesia. A skin andrzej was made with a scalpel. Access was gained to the vein under direct ultrasound guidance with a 21-gauge needle and a 0.018 inch wire was advanced. Access site was dilated with a peel-away sheath and the catheter tailored to length. Cath eter advanced centrally and a post procedure chest x-ray verified placement with tip at the superior vena cava. Catheter was fixed to the skin and a sterile dressing placed. Hemostasis achieved and th e catheter was aspirated and flushed with sterile saline. The patient remained in stable condition. IMPRESSION: STATUS POST ULTRASOUND GUIDED PICC LINE PLACEMENT, READY FOR USE. THIS PROCEDURE WAS PER FORMED BY THE UNDERSIGNED.
--- NOTE | 2021-07-04 13:21 | XR ---
EXAMINATION TYPE: XR chest 1V portable DATE OF EXAM: 07/04/2021 Comparison: 07/04/2021 Clinical History: 66-year-old female PICC LINE PLACEMENT Findings: Left CVC tip at the mid to lower SVC. Right PICC tip at the lower SVC. NG tube courses below the diap hragm. Metallic BB again noted projecting at the sternal notch region. Heart mildly enlarged. Diffuse interstitial densities persist. [id number] left and small right pleural effusions with promin ent adjacent opacity demonstrated. Impression: 1. Right PICC tip at the lower SVC. 2. Otherwise, relatively stable exam, likely CHF with interstitial pulmonary edema. 3. Now increased small to moderate left and small right pleural effusions with adjacent atelectasis a nd/or consolidation.
[2021-07-04 13:38] LABS: Glucose,Whole Blood 178 mg/dL (75-99)
--- NOTE | 2021-07-04 14:37 | P.PN ---
Subjective Progress Note Date: 07/04/21 Acute cardiac arrest with ventricular fibrillation as per EMS Patient is a 66-year-old female with a known history of diabetes type 2 currently insulin-dependent, right diabetic heel ulcer with MRSA was brought to hospital by EMS after she had cardiac arrest. According to the family patient was sitting in the chair and suddenly went down and family started resuscitation with CPR. Apparently family did CPR for about 8 minutes prior to that. EMS was called and she was found to be in ventricular fibrillation. Patient was shocked once and then she went into PEA. She underwent CPR for about 15 minutes by EMS with return spontaneous circulation. Patient was brought to the ER where she was intubated. Initial vitals blood pressure was 96/50 pulse 96 and respiration 15 and pulse ox 94% on 9% nonrebreather. Chest x-ray showed diffuse increased lung markings in the right lung. Correlate for atypical pulmonary edema and pneumonia. CT head showed no acute intracranial hemorrhage or midline shift. There is mild to moderate diffuse age-related atrophy and mild chronic small vessel ischemic changes noted. CT angiogram showed no evidence of pulmonary embolism. Bilateral multifocal areas of groundglass opacity could reflect edema and/or infiltrates greatest in the upper versus lower lungs and greatest in the right lung. Correlate clinically to exclude COVID-19 infection. Laboratory data showed WBC 23.4 hemoglobin 13.7 and platelets of 234 D-dimer is greater than 34 BUN 20 creatinine 0.99 sodium 137 potassium 4.4 blood sugar is 222, AST 125 ALT 53 and alk phos 117, troponin 0 0.081 and proBNP 339 Patient was seen by cardiology and was taken to cardiac catheterization due to ventricular fibrillation as per EMS and to rule out cardiac etiology. 06/26/2021 Patient was admitted to the hospital status post cardiac arrest and was found to have V. tach. Patient remained intubated and sedated. Patient is being continued amiodarone drip which is being changed to by mouth. Started on oral tube feedings. Patient is status post cardiac catheterization showed mild obstructive disease involving the mid LAD. Right dominance. Normal left ventricular end-diastolic pressure. 2D echocardiogram showed ejection fraction 55 to 60%. Moderate mitral stenosis, moderate pulmonary hypertension with RVSP 54.3, IVC is dilated with no significant inspiratory collapse which is consistent with estimated right atrial pressure of greater than 20 mmHg. Chest x-ray today showed improved aeration of the upper lobes with mild persistent left lower lobe atelectasis. Correlate and follow-up. Laboratory showed WBC trending down to 14.2 hemoglobin 11.8 and platelets 240, BUN 31 creatinine 1.01 and blood sugar is 314 Patient is being continued antibiotics in the form of Zosyn. Continue with insulin sliding scale and Levemir was added. Patient is Levemir 38 units twice daily at home. Pulmonary and cardiology is on board. 9920 Patient is currently on mechanical ventilator. Patient had sedation holiday yesterday but became tachypneic and agitated and was started back on assist control. On sedation now. Patient withdraws with painful stimuli. Chest x-ray showed interstitial changes and cardiomegaly and mild pulmonary vessel congestion. Currently on normal saline at 75 mL per hour. Continued on antibiotics in the form of Zosyn. 2-D echocardiogram report as above. Patient has been afebrile. Tolerating tube feedings. Laboratory data showed WBC trending down to 30.8, hemoglobin 10.4 Sodium 137 potassium 4.1 BUN 31 creatinine 0.9. Pulmonary and neurology on board. 06/28/2021 Patient is on mechanical ventilator. Off sedation. Patient able to blink her eyes sometimes. Not responding to verbal stimulus. On assist control 400 FiO2 40%. PEEP 5. Off pressor support. Patient has been afebrile. Chest x-ray showed Stable portable chest. Laboratory data showed WBC 13.8 hemoglobin 10.1 BUN 29 creatinine 0.88, neurology and pulmonary is on board. 06/29/2021 Patient was extubated today morning. Initially was on BiPAP after extubation and is currently down to oxygen via nasal cannula. Patient is following and instructions with rapid commands. Patient could not speak at this time. Continued on NG tube for nutrition. Patient has been afebrile. Next line chest x-ray showed minimal atelectasis at the right lung base. Laboratory data showed WBC 10.7 hemoglobin 9.8 and platelets 208 sodium 144 potassium 4.0 chloride 111, BUN 30 and creatinine 0.82, blood sugar 159 06/30/2021 Patient is in the MICU. Awake alert and is able to turn her head and follow simple commands. Patient still aphasic. Overnight patient was on BiPAP and currently currently to nasal cannula. Chest x-ray today showed persistent patchy pain right midlung and bibasilar opacities. Right midlung opacity slightly more prominent. Findings consistent with COVID-19 infection. Lab data showed WBC 9.4 hemoglobin 9.5 and platelets 242 lymphocytes 1.2 Sodium 146 potassium 4.2 chloride 112 BUN 38 and creatinine 0.86 and blood sugar is 230 07/01/2021 Patient is seen and examined in follow-up this morning continues to be closely monitored in the ICU. She was having some shortness of breath on high flow with repeat chest x-ray showing cardiomegaly with pulmonary venous congestion and interstitial curly B-lines but may reflect changes of interstitial edema with developing atelectasis or infiltrate of the right lower lobe. Multiple medical consultations following including pulmonary and cardiology and patient was given a dose of IV Lasix today and is currently on BiPAP with settings of rate of 10 with inspiratory pressure of 12 expiratory pressure of 6 and FiO2 45% maintaining 95% oxygen saturation. Patient is awake and responding to voice and following simple commands although is aphasic. White blood count is 13.9 and hemoglobin is 10.9, sodium is elevated at 151 with a potassium of 4.2, chloride is 114, current creatinine is 0.74. BNP is 1550. Patient continues on Accu-Cheks and sliding-scale along with long-acting and will continue to monitor closely. 07/02/2021 Patient is seen in follow-up being closely monitored in the ICU. Patient continues to have some shortness of breath and difficulty in breathing and continues on BiPAP although was tolerating liters nasal cannula high flow and pulmonary following closely. Patient continues on cleviprex for tight blood pr essure control. Patient was on Lovenox and being transitioned oral anticoagulant of eliquis. Sodium continues to be elevated at 152 and will continue with increased free water flushes with tube feedings and we'll transition IV fluids to D5 in water gentle and will continue to closely monitor. Sugars have been elevated and will continue with Accu-Cheks every 4 along with sliding scale and long-acting insulin. White blood count is 14.6 today and hemoglobin is 10.8. Patient is afebrile. Neurology following and repeat CT of the brain was done showing mild cerebral atrophy with no acute intracranial abnormality and no changes noted from previous. Patient is alert and oriented 1-2 and following simple commands but continues to have difficulty in speaking and finding the words to say. 07/03/2021 Patient is seen in follow-up this morning continues to be in the ICU and continues on BiPAP with chest x-ray today showing mild worsening of the peripheral infiltrates and correlate for volume overload in a typical pneumonia. Patient continues on D5 in water sodium trending down at 148 with a potassium of 4.2 current creatinine is 0.72 and blood sugars have been increasingly elevated in the high 300s and will continue with sliding scale and have increased Levemir to 35 units twice daily and will monitor closely. Patient also continues on Cleviprex his blood pressure continues to be elevated. Lopressor also being increased. 07/04/2021 Patient is seen and evaluated and follow-up continues to be in the ICU and is BiPAP dependent and chest x-ray continues to show worsening pulmonary vascular congestion with ongoing CHF and pleural effusions and setting Up on the BiPAP. Pulmonary and Cardiology Following Closely. Patient Is off Cleviprex and blood pressures continue to be slightly elevated although improved and continued on amiodarone along with lisinopril and metoprolol. She continues on D5 in water and sodium is 143 with a potassium of 4.9 current creatinine is 0.78. Blood sugars elevated although improved and will continue current regimen. White blood count is 15 with a hemoglobin of 11.7 and patient continues on Zosyn. Patient has received multiple IV pushes of Lasix and continues to clinically deteriorate and respiratory status deteriorating as well. Lengthy discussion was had with the family and would like to discuss further with other family members about comfort measures per family reiterated they would like to continue with no CODE STATUS and will be in today. Prognosis remains extremely guarded and poor. Current medications reviewed. Active Medications Albuterol/Ipratropium (Ipratropium-Albuterol 3 Ml Neb) 3 ml INHALATION RT-QID PRN PRN Reason: Shortness Of Breath Or Wheezing Amiodarone HCl (Amiodarone 200 Mg Tab) 200 mg PO BID [facility] Stop: 07/04/21 23:59 Last Admin: 07/04/21 10:34 Dose: 200 mg Documented by: Amiodarone HCl (Amiodarone 200 Mg Tab) 200 mg PO DAILY [facility] Atorvastatin Calcium (Atorvastatin 40 Mg Tab) 40 mg PO DAILY [facility] Last Admin: 07/04/21 10:34 Dose: 40 mg Documented by: Dexamethasone Sodium Phosphate (Dexamethasone Sod Phosphate 4 Mg/Ml 1 Ml Vial) 4 mg IV Q6HR [facility] Haloperidol Lactate (Haloperidol Lactate 5 Mg/Ml 1 Ml Vial) 2 mg IVP Q6HR PRN PRN Reason: Agitation or Acute Psychosis Last Admin: 06/30/21 20:25 Dose: 2 mg Documented by: Clevidipine 25 mg/ IV Solution 50 mls @ 2 mls/hr IV .Q24H [facility]; Protocol Last Titration: 07/03/21 21:34 Dose: 0 mg/hr, 0 mls/hr Documented by: Dextrose/Water (Dextrose 5%-Water Iv Soln) 1,000 mls @ 20 mls/hr IV .Q24H [facility] Last Admin: 07/04/21 10:36 Dose: 20 mls/hr Documented by: Piperacillin Sod/Tazobactam (Sod 3.375 gm/ Sodium Chloride) 100 mls @ 25 mls/hr IVPB Q8HR [facility] Insulin Aspart (Insulin Aspart (Novolog) 100 Unit/Ml Vial) 0 unit SQ Q4HR [facility]; Protocol Last Admin: 07/04/21 13:49 Dose: 3 unit Documented by: Insulin Detemir (Insulin Detemir (Levemir) 100 Unit/Ml Syr) 35 unit SQ BID@0700,2100 [facility] Last Admin: 07/04/21 10:33 Dose: 35 unit Documented by: Lisinopril (Lisinopril 20 Mg Tab) 20 mg PO DAILY [facility] Last Admin: 07/04/21 10:35 Dose: 20 mg Documented by: Metoprolol Tartrate (Metoprolol Tartrate 50 Mg Tab) 50 mg PO BID [facility] Last Admin: 07/04/21 10:35 Dose: 50 mg Documented by: Nitroglycerin (Nitroglycerin Sl Tabs 0.4 Mg Tab) 0.4 mg SUBLINGUAL Q5M PRN PRN Reason: Chest Pain Sodium Chloride (Sodium Chloride 0.9% Flush 10 Ml Syringe) 10 ml IV Q4HR PRN PRN Reason: PICC Line Sodium Chloride (Sodium Chloride 0.9% Flush 10 Ml Syringe) 10 ml IV WEEKLY [facility] Sodium Chloride (Sodium Chloride 0.9% Flush 10 Ml Syringe) 20 ml IV Q4HR PRN PRN Reason: PICC Line PHYSICAL EXAMINATION: Patient is sitting in the bed, tachypneic and her working to breathe has become more labored, not following commands and is unresponsive HEENT: Normocephalic. Neck is supple. Pupils reactive. Nostrils clear. Oral cavity is moist. NG tube in place. BiPAP noted Neck reveals no JVD, carotid bruits, or thyromegaly. CHEST EXAMINATION: Trachea is central. Symmetrical expansion. bibasilar crackles and rhonchi noted. CARDIAC: Normal S1, S2 with no gallops. No murmurs ABDOMEN: Soft. Obese. Bowel sounds normal. No organomegaly. No abdominal bruits. Extremities: reveal no edema. No clubbing or cyanosis Neurologically patient is unresponsive not following commands, diffusely weak Skin: No rash or skin lesions. Psychiatric: unable to assess Musculoskeletal: No joint swelling or deformity. Assessment: Acute encephalopathy status post cardiac arrest. Acute cardiac arrest with ventricular fibrillation as per EMS. Downtime approximately 25 to 30 minutes. Possible anoxic encephalopathy. Acute hypoxic respiratory failure Secondary to above. Patient is extubated and continues on BiPAP with worsening respiratory status hypernatremia, improving on D5 in water Possible right lower lobe aspiration pneumonia. Ruled out COVID-19 infection Elevated D-dimer level with no evidence of PE as per CTA Diabetes type 2 insulin-dependent, uncontrolled with hyperglycemia, continue with Accu-Cheks every 4 along with sliding scale and long-acting and will continue to monitor History of smoking Morbid obesity BMI 42.4 Right heel Diabetic foot ulcer with clean base. No purulent drainage noted. DVT prophylaxis, initiating eliquis once PICC line is ordered No code Plan: Patient continues to be closely monitored in the ICU. Neurology following along with pulmonary and cardiology. Patient is off Cleviprex and blood pressure more controlled with oral medications being given through the NG tube. Patient's chest x-ray and respiratory status continued to deteriorate and patient has been receiving multiple doses of IV Lasix with no real improvement. Patient also continues to be unresponsive and not following commands. Attempted to discuss comfort measures with the family and they need to discuss further with other family members before ultimately deciding on possible hospice with comfort measures only. Sodium improved at 143 today and will continue free water flushes and continue a gentle IV hydration with D5 in water and repeat a.m. labs. Patient continues on IV antibiotics in the form of zosyn and WBC is elevated at 15. Prognosis is extremely poor and guarded. Family wishes to continue with no CODE STATUS but unsure of comfort measures at this time until discussing further with other family members. Objective - Vital Signs Vital signs: Vital Signs Temp 97.2 F L 07/04/21 04:00 Pulse 62 07/04/21 07:00 Resp 31 H 07/04/21 07:00 BP 152/72 07/04/21 07:00 Pulse Ox 92 L 07/04/21 07:00 Intake & Output 07/03/21 07/04/21 07/04/21 18:59 06:59 18:59 Intake Total 2156.433 2210.8 Output Total 1300 850 Balance 708.527 0399.8 Weight 129.7 kg 128.14 kg Intake: IV 900 975 Dextrose 5% in Water 1, 900 975 000 ml @ 75 mls/hr IV . [id number] [facility] Rx#:[id number] Intake, IV Titration 96.433 10.8 Amount Clevidipine Butyrate 25 96.433 10.8 mg In Empty Bag 1 bag @ 1 MG/HR 2 mls/hr IV .Q24H [facility] Rx#:[id number] Tube Feeding 510 325 Other 650 900 Output: Urine 1300 850 Other: Voiding Method External Catheter External Catheter # Voids 1 ABP, PAP, CO, CI - Last Documented Arterial Blood Pressure 158/63 - Labs CBC & Chem 7: 07/04/21 04:16 07/04/21 04:16 Labs: Abnormal Lab Results - Last 24 Hours (Table) 07/03/21 07/03/21 07/03/21 Range/Units 04:15 11:50 16:02 WBC (3.8-10.6) k/uL Neutrophils # (1.3-7.7) k/uL BUN (7-17) mg/dL Glucose (74-99) mg/dL POC Glucose (mg/dL) 382 H 320 H (75-99) mg/dL Hemoglobin A1c 7.4 H (4.0-6.0) % Total Protein (6.3-8.2) g/dL Albumin (3.5-5.0) g/dL 07/03/21 07/04/21 07/04/21 Range/Units 19:41 00:22 04:07 WBC (3.8-10.6) k/uL Neutrophils # (1.3-7.7) k/uL BUN (7-17) mg/dL Glucose (74-99) mg/dL POC Glucose (mg/dL) 281 H 213 H 188 H (75-99) mg/dL Hemoglobin A1c (4.0-6.0) % Total Protein (6.3-8.2) g/dL Albumin (3.5-5.0) g/dL 07/04/21 07/04/21 07/04/21 Range/Units 04:16 04:16 08:08 WBC 15.0 H (3.8-10.6) k/uL Neutrophils # 11.6 H (1.3-7.7) k/uL BUN 51 H (7-17) mg/dL Glucose 196 H (74-99) mg/dL POC Glucose (mg/dL) 188 H (75-99) mg/dL Hemoglobin A1c (4.0-6.0) % Total Protein 6.2 L (6.3-8.2) g/dL Albumin 3.2 L (3.5-5.0) g/dL
[2021-07-04 16:37] LABS: Glucose,Whole Blood 146 mg/dL (75-99)
[2021-07-04] MEDS: PIPERACILLIN-TAZOBACTAM 3.375 GM in SODIUM CHLORIDE 0.9% 100 ML IVPB SCH (17:24)
[2021-07-04] MEDS: DEXAMETHASONE SOD PHOSPHATE 4 MG/ML 1 ML VIAL IV SCH (17:25)
[2021-07-04 20:15] LABS: Glucose,Whole Blood 140 mg/dL (75-99)
[2021-07-04] MEDS ORDERED: APIXABAN 5 MG TAB PO SCH (21:00)
[2021-07-05 02:12] LABS: Glucose,Whole Blood 186 mg/dL (75-99)
[2021-07-05] MEDS: DEXAMETHASONE SOD PHOSPHATE 4 MG/ML 1 ML VIAL IV SCH ×2 (02:17→06:09)
[2021-07-05] MEDS: PIPERACILLIN-TAZOBACTAM 3.375 GM in SODIUM CHLORIDE 0.9% 100 ML IVPB SCH (02:18)
[2021-07-05] MEDS: INSULIN ASPART (NovoLOG) 100 UNIT/ML VIAL SQ SCH ×2 (02:18→04:20)
[2021-07-05 04:07] LABS: Glucose,Whole Blood 201 mg/dL (75-99)
[2021-07-05 04:22] VITALS: TEMP 98.6
[2021-07-05 05:05] LABS: HCT 36.9 % (34.0-46.0); Hypochromasia Marked; MCH 28.7 pg (25.0-35.0); MCHC 29.7 g/dL (31.0-37.0); MCV 96.4 fL (80.0-100.0); Mean Platelet Volume 9.3; Platelet Count 339 k/uL (150-450); RBC 3.83 m/uL (3.80-5.40); RDW 14.1 % (11.5-15.5); WBC 20.8 k/uL (3.8-10.6)
[2021-07-05 05:16] LABS: Calcium 9.4 mg/dL (8.4-10.2)
[2021-07-05 05:24] VITALS: BP 84/43; PULSE 60; RESP 33
[2021-07-05] MEDS: INSULIN DETEMIR (LEVEMIR) 100 UNIT/ML SYR SQ SCH (07:08)
[2021-07-05] MEDS ORDERED: AMIODARONE 200 MG TAB PO SCH (09:00)
--- NOTE | 2021-07-05 09:01 | P.DS ---
Providers Date of admission: 06/25/21 16:17 Expected date of discharge: 07/05/21 Attending physician: Gualberto Acuna Consults: 06/25/21 17:20 Consult Physician Routine Consulting Provider: Keegan Mills Consult Reason/Comments: cardiac arrest Do you want consulting provider notified?: Yes 06/26/21 06:59 Consult Physician Routine Consulting Provider: [facility] Consult Reason/Comments: Chest pain, pulmonary edema Do you want consulting provider notified?: Yes 06/26/21 17:38 Consult Physician Routine Consulting Provider: Charlie Arambula Consult Reason/Comments: cardiac arrest Do you want consulting provider notified?: Yes Primary care physician: Stated None Hospital Course: Final diagnosis Acute encephalopathy status post cardiac arrest. Acute cardiac arrest with ventricular fibrillation as per EMS. Downtime approximately 25 to 30 minutes. Possible anoxic encephalopathy. Acute hypoxic respiratory failure Secondary to above hypernatremia Possible right lower lobe aspiration pneumonia. Ruled out COVID-19 infection Elevated D-dimer level with no evidence of PE as per CTA Diabetes type 2 insulin-dependent, uncontrolled with hyperglycemia History of smoking Morbid obesity BMI 42.4 Right heel Diabetic foot ulcer with clean base. No purulent drainage noted. DVT prophylaxis No code Discharge disposition Patient has . According to nursing documentation time of is 0548 on 07/05/2021. Preliminary cause of Acute cardiac arrest with ventricular fibrillation Hospital course Acute cardiac arrest with ventricular fibrillation as per EMS Patient is a 66-year-old female with a known history of diabetes type 2 currently insulin-dependent, right diabetic heel ulcer with MRSA was brought to hospital by EMS after she had cardiac arrest. According to the family patient was sitting in the chair and suddenly went down and family started resuscitation with CPR. Apparently family did CPR for about 8 minutes prior to that. EMS was called and she was found to be in ventricular fibrillation. Patient was shocked once and then she went into PEA. She underwent CPR for about 15 minutes by EMS with return spontaneous circulation. Patient was brought to the ER where she was intubated. Initial vitals blood pressure was 96/50 pulse 96 and respiration 15 and pulse ox 94% on 9% nonrebreather. Chest x-ray showed diffuse increased lung markings in the right lung. Correlate for atypical pulmonary edema and pneumonia. CT head showed no acute intracranial hemorrhage or midline shift. There is mild to moderate diffuse age-related atrophy and mild chronic small vessel ischemic changes noted. CT angiogram showed no evidence of pulmonary embolism. Bilateral multifocal areas of groundglass opacity could reflect edema and/or infiltrates greatest in the upper versus lower lungs and greatest in the right lung. Correlate clinically to exclude COVID-19 infection. Laboratory data showed WBC 23.4 hemoglobin 13.7 and platelets of 234 D-dimer is greater than 34 BUN 20 creatinine 0.99 sodium 137 potassium 4.4 blood sugar is 222, AST 125 ALT 53 and alk phos 117, troponin 0 0.081 and proBNP 339 Patient was seen by cardiology and was taken to cardiac catheterization due to ventricular fibrillation as per EMS and to rule out cardiac etiology. 07/05/2021 Patient continued to deteriorate clinically and respiratory status and need to deteriorate as well and patient was unresponsive to stimuli and not following any commands. Multiple medical consultations following and lengthy discussions were had with the family in regards to CODE STATUS along with possible comfort measures and discussion was being had with other family members with decisions to make about comfort. Throughout the night patient continued to decline and ultimately with nursing documentation reporting time of is 0548. Please refer to previous progress notes for further dictation and HPI. Patient Condition at Discharge: Poor Plan - Discharge Summary Discharge Rx Participant: Yes New Discharge Prescriptions: No Action Insulin Glargine [Lantus Vial] 38 unit SQ BID Collagenase [Santyl] 1 applic TOPICAL DAILY PRN PRN Reason: foot ulcer metFORMIN HCL 1,000 mg PO BID Diazepam [Valium] 5 mg PO HS PRN PRN Reason: Insomnia Discharge Medication List Collagenase [Santyl] 1 applic TOPICAL DAILY PRN 06/25/21 [History] Diazepam [Valium] 5 mg PO HS PRN 06/25/21 [History] Insulin Glargine [Lantus Vial] 38 unit SQ BID 06/25/21 [History] metFORMIN HCL 1,000 mg PO BID 06/25/21 [History] Follow up Appointment(s)/Referral(s): None,Stated [Primary Care Provider] - 1-2 days
--- NOTE | 2021-07-09 14:02 | CDI ---
Documentation Clarification Form Date: 07/09/2021 01:19:52 PM From: Kasey Cardenas Phone: [email or web address] Admit Date: 06/25/2021 04:17:00 PM Patient Name: Svetlana Arreguin Visit Number: [id number] Discharge Date: 07/05/2021 09:21:00 AM ATTENTION: The Clinical Documentation Specialists (CDI) and [facility] Coding Staff appreciate your assistance in clarifying documentation. Please respond to the clarification below the line at the bottom and electronically sign. The CDI & [facility] Coding staff will review the response and follow-up if needed. Please note: Queries are made part of the Legal Health Record. If you have any questions, please contact the author of this message via ITS. Dr. Gualberto Acuna Your patient had an acute cardiac arrest with ventricular fibrillation as per EMS. Based on this information and the findings below, is there an additional diagnosis that is clinically appropriate for this patient? Patient history/risk factors: 06/25 H&P: "known history of diabetes type 2 currently insulin-dependent, right diabetic heel ulcer with MRSA was brought to hospital by EMS after she had cardiac arrest. According to the family patient was sitting in the chair and suddenly went down and family started resuscitation with CPR. Apparently family did CPR for about 8 minutes prior to that. EMS was called and she was found to be in ventricular fibrillation. Patient was shocked once and then she went into PEA. She underwent CPR for about 15 minutes by EMS with return spontaneous circulation. Patient was brought to the ER where she was intubated. Initial vitals blood pressure was 96/50 pulse 96 and respiration 15 and pulse ox 94% on 9% nonrebreather." Clinical Indicators: 06/25 H&P: "Acute cardiac arrest with ventricular fibrillation as per EMS. Downtime approximately 25 to 30 minutes. Acute hypoxic respiratory failure. Possible right lower lobe aspiration pneumonia. Rule out COVID-19 infection. Elevated D-dimer level with no evidence of PE as per CTA. Diabetes type 2 insulin-dependent. History of smoking. Morbid obesity BMI 42.4 06/25 BP 76/50, 84/74, 92/81 06/25 HR 107 @1500 06/25 Heart cath: Mild obstructive disease involving the mid LAD. Right dominance. Normal left ventricular end-diastolic pressure. 06/26 Echocardiogram: severe left ventricular hypertrophy, moderate pulmonary hypertension, EF between 55-60%. Treatment: She received cardioversion for ventricular fibrillation. On arrival in the emergency room she was intubated. 1L 0.9 NS bolus on 06/25 IV Levophed 06/25-06/26 Is there an additional diagnosis that is clinically appropriate for this patient? [ ] Cardiogenic Shock [ ] Hypovolemic Shock [ ] Shock, unspecified [ ] Other, please specify [ ] Unable to determine Cardiogenic Shock MTDD
--- NOTE | 2021-07-10 06:51 | CDI ---
Documentation Clarification Form Date: 07/10/21 From: Leslee Nicole Admit Date: 06/25/2021 04:17:00 PM Patient Name: Svetlana Arreguin Visit Number: [id number] Discharge Date: 07/05/2021 09:21:00 AM ATTENTION: The Clinical Documentation Specialists (CDI) and [facility] Coding Staff appreciate your assistance in clarifying documentation. Please respond to the clarification below the line at the bottom and electronically sign. The CDI & [facility] Coding staff will review the response and follow-up if needed. Please note: Queries are made part of the Legal Health Record. If you have any questions, please contact the author of this message via ITS. Dr. Gualberto Acuna, There is documentation of pulmonary hypertension in the echo and numerous progress notes. Additional clarification is requested. History/Risk Factors: V fib, cardiac arrest, acute hypoxic respiratory failure, aspiration pneumonia, metabolic and anoxic encephalopathy Clinical Indicators: Echo shows preserved LV function with concentric LVH and moderate mitral stenosis and moderate to severe pulmonary hypertension. Treatment: IV Lasix Please clarify the cause of pulmonary hypertension: [ ] Pulmonary hypertension is due to [ ] Pulmonary hypertension unknown cause [ ] Other explanation of clinical findings (please specify) [ ] Unable to determine (no explanation for clinical findings) Unable to determine MTDD
--- NOTE | 2021-07-10 07:10 | CDI ---
Documentation Clarification Form Date: 07/10/21 From: Leslee Nicole Admit Date: 06/25/2021 04:17:00 PM Patient Name: Svetlana Arreguin Visit Number: [id number] Discharge Date: 07/05/2021 09:21:00 AM ATTENTION: The Clinical Documentation Specialists (CDI) and [facility] Coding Staff appreciate your assistance in clarifying documentation. Please respond to the clarification below the line at the bottom and electronically sign. The CDI & [facility] Coding staff will review the response and follow-up if needed. Please note: Queries are made part of the Legal Health Record. If you have any questions, please contact the author of this message via ITS. Dr. Gualberto Acuna, Conflicting documentation has been found in the medical record. As attending physician, please provide clarification. Left ventricular tachycardia documented only once in Dr Connell's 06/28 progress note. Patient admitted with cardiac arrest and ventricular fibrillation per H&P, D&S and numerous progress notes. History/Risk Factors: DM, pulmonary HTN, cardiac arrest, acute hypoxic respiratory failure, aspiration pneumonia, metabolic and anoxic encephalopathy Clinical Indicators: Patient is a 66-year-old female with a known history of diabetes type 2 currently insulin-dependent, right diabetic heel ulcer with MRSA was brought to hospital by EMS after she had cardiac arrest. According to the family patient was sitting in the chair and suddenly went down and family started resuscitation with CPR. Apparently family did CPR for about 8 minutes prior to that.EMS was called and she was found to be in ventricular fibrillation. Patient was shocked once and then she went into PEA. She underwent CPR for about 15 minutes by EMS she was intubated. Initial vitals blood pressure was 96/50 pulse 96 and respiration 15 and pulse ox 94% on 9% nonrebreather. Treatment: IV Amiodarone, Please clarify which diagnosis is most appropriate: [ ] Ventricular tachycardia [ ] Ventricular tachycardia ruled out [ ] Other (please specify) [ ] Unable to determine Unable to determine MTDD
--- NOTE | 2021-07-10 07:21 | CDI ---
Documentation Clarification Form Date: 07/10/2021 07:14:00 AM From: Leslee Nicole Admit Date: 06/25/2021 04:17:00 PM Patient Name: Svetlana Arreguin Visit Number: [id number] Discharge Date: 07/05/2021 09:21:00 AM ATTENTION: The Clinical Documentation Specialists (CDI) and [facility] Coding Staff appreciate your assistance in clarifying documentation. Please respond to the clarification below the line at the bottom and electronically sign. The CDI & [facility] Coding staff will review the response and follow-up if needed. Please note: Queries are made part of the Legal Health Record. If you have any questions, please contact the author of this message via ITS. Dr. Gualberto Acuna, Your patient has the documented diagnosis of unspecified CHF in the 07/04 progress note. Additional information regarding the [type, acuity] of CHF is requested. History/Risk Factors: V fib, cardiac arrest, acute hypoxic respiratory failure, aspiration pneumonia, metabolic and anoxic encephalopathy, DM Clinical Indicators: Patient is seen and evaluated and follow-up continues to be in the ICU and is BiPAP dependent and chest x-ray continues to show worsening pulmonary vascular congestion with ongoing CHF and pleural effusions and setting Up on the BiPAP. VS/Pulse OX: T-97.6, P-56, R-29, O2 SAT-94 BNP: 06/25-339,07/01-1550 Echocardiogram Results: Overall left ventricular systolic function is normal with, an EF between 55-60 %. Normal LAP Grade 1 Diastolic Dysfunction. Chest X Ray: Correlate for ongoing CHF with pulmonary vascular congeston. Treatment: IV Lasix In your professional opinion, can you please clarify the [acuity and type] of CHF if known? [ ] Acute Systolic Heart Failure (reduced EF) [ ] Acute Diastolic Heart Failure (preserved EF) [ ] Other, please specify [ ] Unable to determine Acute Diastolic Heart Failure MTDD
== END 2021-07-05 09:21 | disposition expired | DRG 286 ==
LOC: EC 14:41 → 2SICU 16:17
PROVIDERS: ADMIT Internal Medicine; ATTEND Internal Medicine
PROC: 5A1945Z Respiratory Ventilation, 24-96 Consecutive Hours (ICD-10-PCS; 2021-06-25)
PROC: 0BH17EZ Insertion of Endotracheal Airway into Trachea, Via Natural or Artificial Opening (ICD-10-PCS; 2021-06-25)
PROC: 4A133B1 Monitoring of Arterial Pressure, Peripheral, Percutaneous Approach (ICD-10-PCS; 2021-06-25)
PROC: 0D9670Z Drainage of Stomach with Drainage Device, Via Natural or Artificial Opening (ICD-10-PCS; 2021-06-25)
PROC: 03HY32Z Insertion of Monitoring Device into Upper Artery, Percutaneous Approach (ICD-10-PCS; 2021-06-25)
PROC: 05HN33Z Insertion of Infusion Device into Left Internal Jugular Vein, Percutaneous Approach (ICD-10-PCS; 2021-06-25)
PROC: 4A133J1 Monitoring of Arterial Pulse, Peripheral, Percutaneous Approach (ICD-10-PCS; 2021-06-25)
PROC: 3E033XZ Introduction of Vasopressor into Peripheral Vein, Percutaneous Approach (ICD-10-PCS; 2021-06-25)
PROC: B2111ZZ Fluoroscopy of Multiple Coronary Arteries using Low Osmolar Contrast (ICD-10-PCS; principal; 2021-06-25 17:35)
PROC: 4A023N7 Measurement of Cardiac Sampling and Pressure, Left Heart, Percutaneous Approach (ICD-10-PCS; principal; 2021-06-25 17:35)
PROC: 3E0G76Z Introduction of Nutritional Substance into Upper GI, Via Natural or Artificial Opening (ICD-10-PCS; 2021-06-27)
PROC: 5A09557 Assistance with Respiratory Ventilation, Greater than 96 Consecutive Hours, Continuous Positive Airway Pressure (ICD-10-PCS; 2021-06-28)
PROC: 02HV33Z Insertion of Infusion Device into Superior Vena Cava, Percutaneous Approach (ICD-10-PCS; 2021-07-04)
DX: I49.01 Ventricular fibrillation (principal); J96.01 Acute respiratory failure with hypoxia; J69.0 Pneumonitis due to inhalation of food and vomit; G93.41 Metabolic encephalopathy; I50.31 Acute diastolic (congestive) heart failure; G93.1 Anoxic brain damage, not elsewhere classified; E87.0 Hyperosmolality and hypernatremia; I31.3 Pericardial effusion (noninflammatory); L97.419 Non-pressure chronic ulcer of right heel and midfoot with unspecified severity; L97.411 Non-pressure chronic ulcer of right heel and midfoot limited to breakdown of skin; R47.01 Aphasia; Z68.41 Body mass index [BMI] 40.0-44.9, adult; J98.11 Atelectasis; I27.20 Pulmonary hypertension, unspecified; E11.621 Type 2 diabetes mellitus with foot ulcer; I11.0 Hypertensive heart disease with heart failure; I50.9 Heart failure, unspecified; I95.9 Hypotension, unspecified; J44.9 Chronic obstructive pulmonary disease, unspecified; L89.622 Pressure ulcer of left heel, stage 2; E11.65 Type 2 diabetes mellitus with hyperglycemia; I46.2 Cardiac arrest due to underlying cardiac condition; E66.01 Morbid (severe) obesity due to excess calories; I48.0 Paroxysmal atrial fibrillation; Z79.4 Long term (current) use of insulin; Z66 Do not resuscitate; Z20.822 Contact with and (suspected) exposure to COVID-19; G31.9 Degenerative disease of nervous system, unspecified; I45.2 Bifascicular block; E78.5 Hyperlipidemia, unspecified; I25.10 Atherosclerotic heart disease of native coronary artery without angina pectoris; F41.9 Anxiety disorder, unspecified; R45.1 Restlessness and agitation; I05.0 Rheumatic mitral stenosis; R77.8 Other specified abnormalities of plasma proteins; F17.200 Nicotine dependence, unspecified, uncomplicated; Z91.19 Patient's noncompliance with other medical treatment and regimen; Z79.899 Other long term (current) drug therapy; Z86.14 Personal history of Methicillin resistant Staphylococcus aureus infection; Z71.3 Dietary counseling and surveillance
CPT/HCPCS: 31500; 36415; 36573; 70450; 71045; 71275; 80048; 80053; 80061; 82805; 83036; 83735; 83880; 84484; 85025; 85027; 85379; 85610; 85730; 87040; 87070; 87205; 87635; 93005; 93306; 93458; 94003; 94660; 95816; 96365; 96366; 96368; 96375; 99291